=== PATIENT | female | born 2000 | race Caucasian/White ===

== ENCOUNTER 2024-02-16 11:20 | Outpatient (OUT) | payer OTHER, SELFPAY ==
--- NOTE | 2024-02-16 11:23 | US_ITS ---
[address] [address] Patient Name: ATTILA TESFAYE MRN: [id number] date: 2000 Sex: F Assigned Patient Location: US Current Patient Location: US Accession/Order Number: [id number] Exam Date: 02/16/2024 11:25 Report Date: 02/16/2024 11:57 At the request of: BLADIMIR PIERRE Procedure: US OB growth EXAMINATION: US OB growth HISTORY: Related Condition Third Trimester COMPARISON: No relevant comparison available. FINDINGS: Heart Rate: 155.17 bpm Amniotic Fluid Volume: 12.4 cm, largest fluid pocket 4.1 cm Number: 1 Position: Cephalic presentation, longitudinal lie BIOMETRY: BPD: 7.23 cm; 29 weeks 0 days; 12.90 % HC: 27.40 cm; 29 weeks 6 days; 14.80 % AC: 26.10 cm; 30 weeks 2 days; 52.40 % FL: 5.62 cm; 29 weeks 4 days; 23.20 % EFW: 1473.76 g; 33.30 %, 3 lbs. 4 oz. FL/AC: 21.54 FL/BPD: 77.71 HC/AC: 1.05 GESTATIONAL AGE: Age by EDC: 30 weeks 0 days JESÚS by EDC: 2024-04-26 Age by US: 29 weeks 5 days JESÚS by US: 2024-04-28 US/US OB growth IMPRESSION: Normal interval growth Electronically authenticated by: REA HERRERA Date: 02/16/2024 11:57
== END 2024-02-16 11:21 | disposition home or self-care (01) ==
LOC: US 11:21
PROVIDERS: Visit Provider Midwife
DX: O26.93 Pregnancy related conditions, unspecified, third trimester (principal); Z3A.30 30 weeks gestation of pregnancy
CPT/HCPCS: 76816

== ENCOUNTER 2024-04-28 13:14 | Outpatient (OUT) | payer BC, OTHER, SELFPAY ==
--- NOTE | 2024-04-28 | US_ITS ---
[place] [id number] Patient Name: ATTILA TESFAYE MRN: [id number] date: 2000 Sex: F Assigned Patient Location: US Current Patient Location: Accession/Order Number: [id number] Exam Date: 04/28/2024 15:39 Report Date: 04/28/2024 15:40 At the request of: BLADIMIR PIERRE APRN, CNM Procedure: US OB BPP w non-stress Biophysical profile. Reason for exam: Postterm . COMPARISON: None. TECHNIQUE: Transabdominal imaging of the gravid uterus was obtained. FINDINGS: Supply Coordinator reports a BPP of 6 out of 8 with 0 for breathing movements. SARAI is normal at 18.1 cm. heart rate 158 bpm. US/US OB BPP w non-stress IMPRESSION: BPP 6 out of 8. Correlation with NST is suggested. Impression dictated by: Quinn Santamaria Jr., D.O.04/28/2024 3:40 PM Dictation Location: [place] [address] Electronically authenticated by: [id number] Y Date: 04/28/2024 15:40
[2024-04-28 13:21] VITALS: BP 127/68; PULSE 86
== END 2024-04-28 14:29 | disposition home or self-care (01) ==
LOC: US 13:14 → FBC 13:19
PROVIDERS: Visit Provider Midwife
DX: O48.0 Post-term pregnancy (principal)
CPT/HCPCS: 76818

== ENCOUNTER 2024-04-29 09:00 | Outpatient (OUT) | payer BC, OTHER, SELFPAY ==
--- NOTE | 2024-04-29 | US_ITS ---
[facility] [place] [id number] Patient Name: ATTILA TESFAYE MRN: [id number] date: 2000 Sex: F Assigned Patient Location: [facility] Current Patient Location: [facility] Accession/Order Number: [id number] Exam Date: 04/29/2024 09:49 Report Date: 04/29/2024 09:51 At the request of: MONTY ARAGON MD Procedure: US OB BPP w non-stress BIOPHYSICAL PROFILE: CLINICAL INFORMATION: Repeat BPP, Patient is post term delivery dates COMPARISON: 04/28/2014 There is a single live intrauterine gestation in cephalic presentation. The reported gestational age is 40 weeks 3 days. The heart rate [id number] beats per minute. FINDINGS: TONE: 1 or more episodes of activity extension and flexion of extremity or opening and closing of the hand [Y] 2/2 GROSS BODY MOVEMENTS: 3 or more discrete body or limb movements [Y] 2/2 BREATHING MOVEMENTS: 1 or more episodes of breathing lasting at least 30 seconds [Y] 2/2 SARAI: A single deepest vertical pocket of amniotic fluid greater than 2 cm [Y] 2/2 SARAI: 16.0 cm. This is in normal range. Total score: 8/8 US/US OB BPP w non-stress IMPRESSION: NORMAL BIOPHYSICAL PROFILE Impression dictated by: Erin Fuller M.D.04/29/2024 9:51 AM Dictation Location: [place] [address] Electronically authenticated by: [id number] Y Date: 04/29/2024 09:51
[2024-04-29 09:07] VITALS: BP 128/67; PULSE 77
--- OUTSIDE RECORDS SUMMARY | 2024-04-29 09:12 | XMS_ITS | CCD ---
Author Organization [facility] Care Team Providers Care Nuclear Medical Technologist Name Role Phone Unavailable Primary Care Provider UnavailBLADIMIR Cherry Admitting Unavailable BLADIMIR ONEAL Attending Unavailable MISC, DR BARTON Primary Care Unavailable ANTHONY, DR MOROE Attending Unavailable ANTHONY, DR MOORE Consulting Unavailable ANTHONY, DR MOORE Admitting Unavailable Dina WILLIAMSON, [facility] Primary Care Provider [phone] BLADIMIR ONEAL Attending Unavailable FLORO, BLADIMIR L Attending Unavailable FLORO, BLADIMIR L Attending Unavailable FLORO, BLADIMIR L Attending Unavailable FLORO, BLADIMIR L Attending Unavailable FLORO, BLADIMIR L Referring Unavailable PINO HIGGINS Attending Unavailable FLORO, BLADIMIR L Attending Unavailable FLORO, BLADIMIR L Referring Unavailable FLORO, BLADIMIR L Attending Unavailable FLORO, BLADIMIR L Referring Unavailable FLORO, BLADIMIR L Attending Unavailable FLORO, BLADIMIR L Attending Unavailable FLORO, BLADIMIR L Referring Unavailable FLORO, BLADIMIR L Attending Unavailable FLORO, BLADIMIR L Attending Unavailable FLORO, BLADIMIR L Attending Unavailable Medications Current Medications Medication Drug Class(es) Dates Sig (Normalized) Sig (Original) acetaminophen 325 mg oral tablet (1 source) Start: 01-17-2020 acetaminophen (TYLENOL) tablet 650 mg benzocaine 200 mg/ml / menthol 5 mg/ml topical spray (1 source) Standardized Chemical Allergen Start: 01-17-2020 benzocaine-menthol (DERMOPLAST) 20-0.5 % spray docusate sodium 100 mg oral capsule (1 source) Start: 01-17-2020 docusate sodium (COLACE) capsule 100 mg ibuprofen 800 mg oral tablet (1 source) Nonsteroidal Anti-inflammatory Drug Start: 01-17-2020 ibuprofen (ADVIL;MOTRIN) tablet 800 mg lansinoh lanolin ointment (1 source) Start: 01-17-2020 lansinoh lanolin ointment ondansetron 4 mg disintegrating oral tablet (1 source) Serotonin-3 Receptor Antagonist Start: 01-17-2020 ondansetron (ZOFRAN-ODT) disintegrating tablet 8 mg DMCXII-A8-F7-B12-D3- FA PO (1 source) take 1 tablet by mouth once daily [id number]-B3-T0-B12-D3 -FA PO Take 1 tablet by mouth daily 0 Active Itdkkalw-Gdy-Lc-FA ( 1 + IRON PO) (20 sources) Wwvdmgey-Dtn-Ph-FA ( 1 + IRON PO) Take by mouth Active 3 ml sodium chloride 9 mg/ml injection (2 sources) Start: 01-17-2020 sodium chloride flush 0.9 % injection 10 mL witch alexis 500 mg/ml medicated pad (1 source) Start: 01-17-2020 witch alexis-glycerin (TUCKS) pad Completed/Discontinued Medications Medication Drug Class(es) Dates Sig (Normalized) Sig (Original) calcium chloride 0.0014 meq/ml / potassium chloride 0.004 meq/ml / sodium chloride 0.103 meq/ml / sodium lactate 0.028 meq/ml injectable solution (1 source) Start: 01-17-2020 End: 01-17-2020 lactated ringers infusion ferrous sulfate 325 mg oral tablet (1 source) End: 01-19-2020 take 1 tablet by mouth once daily at breakfast ferrous sulfate (IRON 325) 325 (65 Fe) MG tablet Take 325 mg by mouth daily (with breakfast) 0 01/19/2020 Discontinued (Stop Taking at Discharge) 200 ml ropivacaine hydrochloride 2 mg/ml injection (1 source) Amide Local Anesthetic Start: 01-17-2020 End: 01-17-2020 12 mL/hr, Epidural, at 12 mL/hr, ONCE, 01/17/20 at 1000, For 1 dose Problems Active Problems Problem Classification Problem Date Documented Da te Episodic/Chronic Other complications of (2 sources) Finding related to ; Translations: [ related conditions, unspecified, second trimester] 11-11-2023 Episodic Other conditions (2 sources) Kbmuw-lce-osytw at regardless of gestation period; Translations: [Other heavy for gestational age ] 04-18-2024 Episodic Other and delivery including normal (20 sources) Term ; Translations: [Normal ] Onset: 01-17-2020 01-17-2020 Episodic Other screening for suspected conditions (not mental disorders or infectious disease) (6 sources) Patient encounter status; Translations: [Encounter for screening for diabetes mellitus] 02-04-2024 Episodic Residual codes; unclassified (2 sources) Gestation period, 39 weeks; Translations: [39 weeks gestation of ] 04-21-2024 Episodic Substance-related disorders (14 sources) Marijuana user; Translations: [Cannabis use, unspecified, uncomplicated] 12-09-2023 Episodic Unclassified (2 sources) CONTACT W/AND (SUSP) EXPOS COVID-19; Translations: [CONTACT W/AND (SUSP) EXPOS COVID-19] Onset: 02-28-2021 Viral infection (1 source) COVID-19; Translations: [COVID-19] Onset: 02-28-2021 Past or Other Problems Problem Classification Problem Date Documented Da te Episodic/Chronic Unclassified (1 source) CONTACT W/AND (SUSP) EXPOS COVID-19; Translations: [CONTACT W/AND (SUSP) EXPOS COVID-19] Onset: 02-25-2021 Results Test Name Value Interpretation Reference Range Facility Urinalysis macro (dipstick) panel (U)on 04-25-2024 Glucose, UA Negative Negative - 1999(110) ++++ mg/dL [facility] Protein, UA Trace Negative - 1999(20) ++++ mg/dL [facility] US OB FOLLOW UP TRANSABDOMIN AL APPROACHon 04-18-2024 US OB FOLLOW UP TRANSABDOMINAL APPROACH EXAM: OB Ultrasound: REASON FOR EXAM: LGA. COMPARISON: 12/09/2023. TECHNIQUE: Grayscale and M-mode Doppler imaging is performed. FINDINGS: heart rate: 149 bpm SARAI: 12.2 cm (7.2 - 22.8) BPD: 9.4 cm HC: 33.3 cm AC: 33.7 cm FL: 7.1 cm GA for sonogram: 37.0 weeks (34.7 - 39.3) JESÚS: 04/26/2024 Weight Estimate: Weight: 3211 gm/7 lbs, 1 oz (2742 - 3680 gm) Hadlock Normal: 3409 gm (2830 - 3989 gm) Hadlock Wt%: 33% for 38.9 wks Age by LMP: 37 w 3 d JESÚS by LMP: 04/26/2024 Gestation: Single Position: Cephalic Placental Location: Anterior Placental Grade: 2 Heart Rate: 149 Somatic Movement: Y Cervical Length: 4.3 cm IMPRESSION: 1. Single live intrauterine gestation in cephalic position estimated at 37 weeks 4 days. This is concordant with the provided clinical dates. 2. The LMP imported into the ultrasound machine for this current study is 07/31/2023. The reference dates/LMP provided on several prior ultrasounds is 07/21/2023 (which was used in the current intraoperative software). This represents a 10-day discrepancy in clinical dates. Please correlate regarding these clinical discrepancies. *This report is generated using voice recognition reporting ([employer]). On occasion Errplan[employer]ribe erroneously drops words from the report or replaces the spoken word with similar sounding words. Please call with any questions/concerns regarding this report.* Dictated and transcribed 04/18/2024/oracio This report has been electronically signed and approved by the interpreting radiologist. Normal Not Available US OB 14+ WEEKS ANATOMY SCAN on 12-09-2023 US OB 14+ WEEKS ANATOMY SCAN EXAM: OB Ultrasound: REASON FOR EXAM: survey. TECHNIQUE: Grayscale and color Doppler imaging is performed. Measurements: heart rate: 145 bpm SARAI: 14.5 cm (9.3 - 21.2) BPD: 4.4 cm HC: 16.5 cm AC: 14.6 cm FL: 3.1 cm GA for sonogram: 19.5 wk (17.7 x 21.3) Cervix length: 4.0 cm JESÚS: 04/26/2024 Weight Estimate: Weight: 308 gm / 0 lbs, 10 oz (263 - 353 gm) Hadlock Normal: 342 gm (284 - 400 gm) Hadlock Wt%: 23% for 20.2 wks Clinical Summary: A single intrauterine is noted in transverse presentation with the head to the maternal right. Four chamber heart is observed with a heart rate of 145 bpm. size is borderline small at 23% for gestational age by weight. motion and organs seen: Normal intracranial anatomy is seen. body and limb movements are observed. spine, limbs, bladder, kidneys, and stomach are observed and within normal limits. Umbilical cord insertion and three vessel cord are identified and within normal limits. bowel, lungs, genitalia, four limbs are visualized and normal in appearance. Placenta is located anteriorly and fundal. Placenta is Grade 0/III Amniotic fluid volume is normal. Dictated and transcribed 12/10/2023/tm This report has been electronically signed and approved by the interpreting radiologist. Electronically Signed Johnny Short D.O. 2023-12-10 13:38:26 Normal Not Available US OB < 14 WEEKS EARLYon US OB < 14 WEEKS EARLY TITLE OF EXAM: OB Ultrasound: REASON FOR EXAM: Confirm dates. TECHNIQUE: Grayscale imaging with color Doppler is performed. Measurements: heart rate: 141 bpm Sac: 2.7 cm CRL: 1.1 cm GA for sonogram: 7.2 wk (06.6-07.8) Cervix Length: 3.8 cm JESÚS: 04/26/2024 CLINICAL SUMMARY: Early intrauterine is seen with positive cardiac activity. Yolk sac is identified and within normal limits. size is normal. growth: Consistent with normal growth. Limited study. Full anatomical survey not performed. Probable small left ovary corpus luteal cyst. Dictated and transcribed 09/18/23dpd This report has been electronically signed and approved by the interpreting radiologist. Electronically Signed Dimas Tim M.D. 2023-09-18 17:02:36 Normal Not Available [facility]16 SARS-CoV-2 (COVID-19) RNA JOHNATHAN+probe Ql (Unsp spec) Detected Critically abnormal NOT DETECTED [facility] Comment on above: Result Comment: This test is not yet approved or cleared by the [place] FDA. When there are no FDA-approved or cleared tests available, and other criteria are met, FDA can make tests available under an emergency access mechanism called an Emergency Use Authorization (EUA). The EUA for this test is supported by the [place] of Health and Human Service's (HHS's) declaration that circumstances exist to justify the emergency use of in vitro diagnostics for the detection and/or diagnosis of the virus that causes COVID-19. This EUA will remain in effect (meaning this test can be used) for the duration of the COVID-19 declaration justifying emergency of IVDs, unless it is terminated or revoked by FDA (after which the test may no longer be used). Performed By: #### C [facility] #### [facility] [address] [place] [address] Dr. Jim Patrick CBC auto differentialon 12-0 Basophils (Bld) [#/Vol] 0.04 10*3/uL [place], [place] Basophils/100 WBC (Bld) 0 % 0 - 2 % [place] Differential Type NOT REPORTED [place] Eosinophils (Bld) [#/Vol] 0.08 10*3/uL [place] Eosinophils/100 WBC (Bld) 1 % 1 - 4 % [place] Erythrocyte distribution width (RBC) [Ratio] 13.4 % 11.8 - 14.4 % [place] Hematocrit (Bld) [Volume fraction] 34.0 % Low 36.3 - 47.1 % [place] Hemoglobin (Bld) [Mass/Vol] 11.2 g/dL Low 11.9 - 15.1 g/dL [place] Immature granulocytes (Bld) [#/Vol] 1 % High 0 [place] Immature granulocytes (Bld) [#/Vol] 0.09 10*3/uL [place] Interpretation and review of laboratory results Abnormal [place] Lymphocytes (Bld) [#/Vol] 2.10 10*3/uL [place] Lymphocytes/100 WBC (Bld) 13 % Low 25 - 45 % [place] MCH (RBC) [Entitic mass] 28.0 pg 25.2 - 33.5 pg [place] MCHC (RBC) [Mass/Vol] 32.9 g/dL 28.4 - 34.8 g/dL [place] MCV (RBC) [Entitic vol] 85.0 fL 82.6 - 102.9 fL [place] Monocytes (Bld) [#/Vol] 0.69 10*3/uL [place] Monocytes/100 WBC (Bld) 4 % 2 - 8 % [place] Platelet mean volume (Bld) [Entitic vol] 11.0 fL 8.1 - 13.5 fL [place] Platelets (Bld) [#/Vol] 238 10*3/uL [place] Platelets (Bld) [#/Vol] NOT REPORTED [place] RBC (Bld) [#/Vol] 4.00 10*6/uL 3.95 - 5.1 1 m/uL [place] RBC morphology finding Nom (Bld) NOT REPORTED [place] Segmented neutrophils/100 WBC (Bld) 81 % High 34 - 64 % [place] Segs Absolute 12.64 High [place] WBC (Bld) [#/Vol] 0.0 10*3/uL 0.0 per 10 0 WBC [place] WBC (Bld) [#/Vol] 15.6 10*3/uL [place] WBC Morphology NOT REPORTED [place], [place] CBC with Diffon 01-17-2020 Abs. Basophil 0.04 k/uL Normal 0.00-0.20 [facility] Comment on above: Performed By: #### C DP #### [facility] [address] [place] [address] Physics Technician: Samuel Vazquez MD Abs.Imm.Granulocyte 0.09 k/uL Normal 0.00-0.30 [facility] Comment on above: Performed By: #### C DP #### [facility] [address] [place] [address] Physics Technician: Samuel Vazquez MD Abs.Neutrophil (Seg) 12.64 k/uL High 1.80-8.00 [facility] Comment on above: Performed By: #### C DP #### [facility] [address] [place] [address] Physics Technician: Samuel Vazquez MD Basophils/100 WBC (Bld) 0 % Normal 0-2 [facility] Comment on above: Performed By: #### C DP #### [facility] [address] [place], [facility] Physics Technician: Samuel Vazquez MD Eosinophils (Bld) [#/Vol] 0.08 10*3/uL Normal 0.00-0.44 [facility] Comment on above: Performed By: #### C DP #### [facility] [address] [place], [place] [address] Physics Technician: Samuel Vazquez MD Eosinophils/100 WBC (Bld) 1 % Normal 1-4 [facility] Comment on above: Performed By: #### C DP #### [address] [place], [facility] Physics Technician: Samuel Vazquez MD Erythrocyte distribution width (RBC) [Ratio] 13.4 % Normal 11.8-14.4 [facility] Comment on above: Performed By: #### C DP #### [address] [place], [facility] Physics Technician: Samuel Vazquez MD Hematocrit (Bld) [Volume fraction] 34.0 % Low 36.3-47.1 [facility] Comment on above: Performed By: #### C DP #### [address] [place], [place] [address] Physics Technician: Samuel Vazquez MD Hemoglobin (Bld) [Mass/Vol] 11.2 g/dL Low 11.9-15.1 [facility] Comment on above: Performed By: #### C DP #### [address] [place] [id number] Physics Technician: Samuel Vazquez MD Immature granulocytes (Bld) [#/Vol] 1 % High 0 [facility] Comment on above: Performed By: #### C DP #### [address] [place] [id number] Physics Technician: Samuel Vazquez MD Lymphocytes (Bld) [#/Vol] 2.10 10*3/uL Normal 1.20-5.20 [facility] Comment on above: Performed By: #### C DP #### [facility] [address] [place] [id number] Physics Technician: Samuel Vazquez MD Lymphocytes/100 WBC (Bld) 13 % Low 25-45 [facility] Comment on above: Performed By: #### C DP #### [facility] [address] [place] [id number] Physics Technician: Samuel Vazquez MD MCH (RBC) [Entitic mass] 28.0 pg Normal 25.2-33.5 [facility] Comment on above: Performed By: #### C DP #### [address] [place] [facility] Physics Technician: Samuel Vazquez MD MCHC (RBC) [Mass/Vol] 32.9 g/dL Normal 28.4-34.8 [facility] Comment on above: Performed By: #### C DP #### [address] [place], [facility] Physics Technician: Samuel Vazquez MD MCV (RBC) [Entitic vol] 85.0 fL Normal 82.6-102.9 [facility] Comment on above: Performed By: #### C DP #### [address] [place], [facility] Physics Technician: Samuel Vazquez MD Monocytes (Bld) [#/Vol] 0.69 10*3/uL Normal 0.10-1.40 [facility] Comment on above: Performed By: #### C DP #### [address] [place], [place] [id number] Physics Technician: Samuel Vazquez MD Monocytes/100 WBC (Bld) 4 % Normal 2-8 [facility] Comment on above: Performed By: #### C DP #### [facility] [address] [place] [address] Physics Technician: Samuel Vazquez MD Neutrophil (Seg) 81 % High 34-64 [facility] Comment on above: Performed By: #### C DP #### [facility] [address] [place] [facility] Physics Technician: Samuel Vazquez MD NRBC Automated 0.0 per 100 WBC Normal 0.0 [facility] Comment on above: Performed By: #### C DP #### [facility] [address] [place] [facility] Physics Technician: Samuel Vazquez MD Platelet mean volume (Bld) [Entitic vol] 11.0 fL Normal 8.1-13.5 [facility] Comment on above: Performed By: #### C DP #### [facility] [address] [place] [id number] Physics Technician: Samuel Vazquez MD Platelets (Bld) [#/Vol] 238 10*3/uL Normal 138-453 [facility] Comment on above: Performed By: #### C DP #### [facility] [address] [place] [address] Physics Technician: Samuel Vazquez MD RBC (Bld) [#/Vol] 4.00 10*6/uL Normal 3.95-5.11 [facility] Comment on above: Performed By: #### C DP #### [facility] [address] [place] [id number] Physics Technician: Samuel Vazquez MD WBC (Bld) [#/Vol] 15.6 10*3/uL High 4.5-13.5 [facility] Comment on above: Performed By: #### C DP #### [facility] [address] [place] [address] Physics Technician: Samuel Vazquez MD Auto Diff Performed NOT REPORTED Normal [facility] Comment on above: Performed By: #### C DP #### [facility] [address] [place] [address] Physics Technician: Samuel Vazquez MD Platelets (Bld) [#/Vol] NOT REPORTED Normal [facility] Comment on above: Performed By: #### C DP #### [facility] [address] [place] [id number] Physics Technician: Samuel Vazquez MD RBC morphology finding Nom (Bld) NOT REPORTED Normal [facility] Comment on above: Performed By: #### C DP #### [facility] [address] [place] [id number] Physics Technician: Samuel Vazquez MD WBC Morphology NOT REPORTED Normal [facility] Comment on above: Performed By: #### C DP #### [facility] [address] [place] [address] Physics Technician: Samuel Vazquez MD DRUG SCREEN MULTI URINEon Amphetamine Screen, Ur Negative NEGATIVE [facility] [place] [place] Barbiturate Screen, Ur Negative NEGATIVE [facility] [place] Benzodiazepine Screen, Urine Negative NEGATIVE [facility] [place] Buprenorphine Urine Negative NEGATIVE [facility] [place] Cannabinoid Scrn, Ur Negative NEGATIVE [facility] [place] Cocaine Metabolite, Urine Negative NEGATIVE [facility] [place] MDMA, Urine NOT REPORTED NEGATIVE [facility] [place] Methadone Screen, Urine Negative NEGATIVE [facility] [place] Methamphetamine, Urine Negative NEGATIVE [facility] [place] Opiates, Urine Negative NEGATIVE [facility] [place] Oxy[place]one Screen, Ur Negative NEGATIVE [facility] [place] Phencyclidine, Urine Negative NEGATIVE [facility] [place] Propoxyphene, Urine Negative NEGATIVE [facility] [place] Test Information NOT REPORTED [facility] [place] Tricyclic Antidepressants, Urine Negative NEGATIVE [facility] [place] Comment on above: Drug screen results are to be used for medical purposes only. All positive results are unconfirmed. Testing for employment or legal uses should be sent to a reference laboratory for confirmation. Drug Scr, Abuse, Uron 2019 Amphetamine(s),Ur Negative Normal [facility]G [facility] Comment on above: Performed By: #### D AU #### [facility] [address] [place] [address] Physics Technician: Samuel Vazquez MD Barbiturate(s),Ur Negative Normal [facility] Comment on above: Performed By: #### D AU #### [facility] [address] [place], [place] [id number] Physics Technician: Samuel Vazquez MD Base excess Calc (Bld) [Moles/Vol] Negative Normal [facility] Comment on above: Performed By: #### D AU #### [facility] [address] [place], [place] [id number] Physics Technician: Samuel Vazquez MD Benzodiazepine(s) Negative Normal [facility]G [facility] Comment on above: Performed By: #### D AU #### [facility] [address] [place], [place] [id number] Physics Technician: Samuel Vazquez MD Buprenorphrine, Ur Negative Normal [facility] Comment on above: Performed By: #### D AU #### [facility] [address] [place], [place] [id number] Physics Technician: Samuel Vazquez MD Cannabinoid(s),Ur Negative Normal [facility] Comment on above: Performed By: #### D AU #### [facility] [address] [place], [place] [id number] Physics Technician: Samuel Vazquez MD Methadone Ql (U) Negative Normal [facility] Comment on above: Performed By: #### D AU #### [facility] [address] [place], [place] 115[address]483 Physics Technician: Samuel Vazquez MD Methamphetamine, Ur Negative Normal NEG [facility] Comment on above: Performed By: #### D AU #### [facility] [address] [place], [place] [id number] Physics Technician: Samuel Vazquez MD Opiate(s), Ur Negative Normal NEG [facility] Comment on above: Performed By: #### D AU #### [facility] [address] [place], [place] [id number] Physics Technician: Samuel Vazquez MD Oxycodone, Urine Negative Normal [facility] Comment on above: Performed By: #### D AU #### [facility] [address] [place], [place] [id number] Physics Technician: Samuel Vazquez MD Phencyclidine, Ur Negative Normal NEG [facility] Comment on above: Performed By: #### D AU #### [facility] [address] [place], [place] [id number] Physics Technician: Samuel Vazquez MD Propoxyphene,Urine Negative Normal NEG [facility] Comment on above: Performed By: #### D AU #### [facility] [address] [place] [address] Dr[place], [place] [id number] Physics Technician: Samuel Vazquez MD Tricyclic antidepressants Screen Ql (U) Negative [facility] Comment on above: Result Comment: Drug screen results are to be used for medical purposes only. All positive results are unconfirmed. Testing for employment or legal uses should be sent to a reference laboratory for confirmation. Performed By: #### D AU #### [facility] [address] [place], [place] [id number] Physics Technician: Samuel Vazquez MD Interpretive Info NOT REPORTED Normal [facility] Comment on above: Performed By: #### D AU #### [facility] [address] [place], [place] [id number] Physics Technician: Samuel Vazquez MD MDMA, Urine NOT REPORTED Normal NEG [facility] Comment on above: Performed By: #### D AU #### [facility] [address] [place] [address] Physics Technician: Samuel Vazquez MD GBS, External Resulton 12-21 GBS, External Result Negative [facility] [place] Verified with eli moct[place] rn [facility] [place] ABO, External Resulton 06-21 ABO, External Result O [facility] [place] C. Trachomatis, External Res ulton 06-22-2019 C. Trachomatis, External Result Negative [facility] [place] HIV, External Resulton 06-21 HIV, External Result Negative [facility] [place] Hepatitis B, External Result on 06-22-2019 Hep B, External Result Negative [place] N. Gonorrhoeae, External Res ulton 06-22-2019 N. Gonorrhoeae, External Result Negative [facility] [place] Otheron 06-22-2019 Verified with eli moctezuma rn [place] RPR, External Labon 06-22-19 20 RPR, External Result nonreactive [place], [place] Rh Factor, External Resulton 06-22-2019 Rh Factor, External Result Positive [place] Rubella Titer, External Resu lton 06-22-2019 Rubella Titer, External Result immune [place] Vital Signs Date Time Vital Sign Value Performing Clinician Facility 04-25-2024 15:18-0400 Body mass index (BMI) [Ratio] 30.46 kg/m2 Pino Higgins MD Work Phone: [facility] 04-25-2024 15:18-0400 Body weight 66.68 kg Pino Higgins MD Work Phone: [facility] 04-25-2024 15:18-0400 Diastolic blood pressure 70 mm[Hg] Pino Higgins MD Work Phone: [facility] 04-25-2024 15:18-0400 Systolic blood pressure 120 mm[Hg] Pino Higgins MD Work Phone: [facility] 04-18-2024 13:30-0500 Body mass index (BMI) [Ratio] 31.08 kg/m2 Bladimir Floro CNM Work Phone: [facility] 04-18-2024 13:30-0500 Body weight 68.04 kg Bladimir Floro CNM Work Phone: [facility] 04-18-2024 13:30-0500 Diastolic blood pressure 80 mm[Hg] Bladimir Floro CNM Work Phone: [facility] 04-18-2024 13:30-0500 Systolic blood pressure 120 mm[Hg] Bladimir Floro CNM Work Phone: [facility] 04-06-2024 16:37-0500 Body mass index (BMI) [Ratio] 30.05 kg/m2 Bladimir Floro CNM Work Phone: [facility] 04-06-2024 16:37-0500 Body weight 65.77 kg Bladimir Floro CNM Work Phone: [facility] 04-06-2024 16:37-0500 Diastolic blood pressure 60 mm[Hg] Bladimir Floro CNM Work Phone: [facility] 04-06-2024 16:37-0500 Systolic blood pressure 120 mm[Hg] Bladimir Floro CNM Work Phone: [facility] 03-30-2024 08:43-0500 Body mass index (BMI) [Ratio] 29.63 kg/m2 Bladimir Floro CNM Work Phone: [facility] 03-30-2024 08:43-0500 Body weight 64.86 kg Bladimir Floro CNM Work Phone: [facility] 03-30-2024 08:43-0500 Diastolic blood pressure 60 mm[Hg] Bladimir Floro CNM Work Phone: [facility] 03-30-2024 08:43-0500 Systolic blood pressure 100 mm[Hg] Bladimir Floro CNM Work Phone: [facility] 03-24-2024 09:36-0500 Body mass index (BMI) [Ratio] 29.22 kg/m2 Bladimir Floro CNM Work Phone: [facility] 03-24-2024 09:36-0500 Body weight 63.96 kg Bladimir Floro CNM Work Phone: [facility] 03-24-2024 09:36-0500 Diastolic blood pressure 70 mm[Hg] Bladimir Floro CNM Work Phone: [facility] 03-24-2024 09:36-0500 Systolic blood pressure 114 mm[Hg] Bladimir Floro CNM Work Phone: [facility] 03-09-2024 09:32-0500 Body mass index (BMI) [Ratio] 29.01 kg/m2 Bladimir Floro CNM Work Phone: [facility] 03-09-2024 09:32-0500 Body weight 63.5 kg Bladimir Floro CNM Work Phone: [facility] 03-09-2024 09:32-0500 Diastolic blood pressure 60 mm[Hg] Bladimir Floro CNM Work Phone: [facility] 03-09-2024 09:32-0500 Systolic blood pressure 110 mm[Hg] Bladimir Floro CNM Work Phone: [facility] 02-25-2024 11:34-0500 Body mass index (BMI) [Ratio] 28.18 kg/m2 Bladimir Floro CNM Work Phone: [facility] 02-25-2024 11:34-0500 Body weight 61.69 kg Bladimir Floro CNM Work Phone: [facility] 02-25-2024 11:34-0500 Diastolic blood pressure 60 mm[Hg] Bladimir Floro CNM Work Phone: [facility] 02-25-2024 11:34-0500 Systolic blood pressure 110 mm[Hg] Bladimir Floro CNM Work Phone: [facility] 02-04-2024 09:03-0500 Body mass index (BMI) [Ratio] 26.52 kg/m2 Bladimir Floro CNM Work Phone: [facility] 02-04-2024 09:03-0500 Body weight 58.06 kg Bladimir Floro CNM Work Phone: [facility] 02-04-2024 09:03-0500 Diastolic blood pressure 78 mm[Hg] Bladimir Floro CNM Work Phone: [facility] 02-04-2024 09:03-0500 Systolic blood pressure 120 mm[Hg] Bladimir Floro CNM Work Phone: [facility] 01-07-2024 09:53-0500 Body mass index (BMI) [Ratio] 25.28 kg/m2 Bladimir Floro CNM Work Phone: [facility] 01-07-2024 09:53-0500 Body weight 55.34 kg Bladimir Floro CNM Work Phone: [facility] 01-07-2024 09:53-0500 Diastolic blood pressure 60 mm[Hg] Bladimir Floro CNM Work Phone: [facility] 01-07-2024 09:53-0500 Systolic blood pressure 100 mm[Hg] Bladimir Floro CNM Work Phone: [facility] 12-09-2023 10:40-0400 Body mass index (BMI) [Ratio] 24.66 kg/m2 Bladimir Floro CNM Work Phone: [facility] 12-09-2023 10:40-0400 Body weight 53.98 kg Bladimir Floro CNM Work Phone: [facility] 12-09-2023 10:40-0400 Diastolic blood pressure 60 mm[Hg] Bladimir Floro CNM Work Phone: [facility] 12-09-2023 10:40-0400 Systolic blood pressure 100 mm[Hg] Bladimir Floro CNM Work Phone: [facility] 11-11-2023 10:37-0400 Body mass index (BMI) [Ratio] 24.45 kg/m2 Bladimir Laurelo CNM Work Phone: [facility] 11-11-2023 10:37-0400 Body weight 53.52 kg Bladimir Laurelo CNM Work Phone: [facility] 11-11-2023 10:37-0400 Diastolic blood pressure 50 mm[Hg] Bladimir Laurelo CNM Work Phone: [facility] 11-11-2023 10:37-0400 Systolic blood pressure 90 mm[Hg] Bladimir Laurelo CNM Work Phone: [facility] 10-14-2023 10:09-0400 Body mass index (BMI) [Ratio] 23 kg/m2 Bladimir Laurelo CNM Work Phone: [facility] 10-14-2023 10:09-0400 Body weight 50.35 kg Bladimir Lucaso CNM Work Phone: [facility] 10-14-2023 10:09-0400 Diastolic blood pressure 70 mm[Hg] Bladimir Laurelo CNM Work Phone: [facility] 10-14-2023 10:09-0400 Systolic blood pressure 110 mm[Hg] Bladimir Laurelo CNM Work Phone: [facility] 09-17-2023 10:04-0400 Body mass index (BMI) [Ratio] 23.21 kg/m2 Bladimir Laurelo CNM Work Phone: [facility] 09-17-2023 10:04-0400 Body weight 50.8 kg Bladimir Laurelo CNM Work Phone: [facility] 01-19-2020 08:10-0500 Body Temperature 97.81 [degF] [facility] [place] [place] 01-19-2020 08:10-0500 BP Diastolic 72 mm[Hg] [facility] [place] [facility] [place] 01-19-2020 08:10-0500 BP Systolic 122 mm[Hg] [facility] [place] 01-[facility]-2020 08:10-0500 Pulse (Heart Rate) 72 /min [facility]adimir [facility] 01-19-2020 08:10-0500 [facility] Rate 16 /[facility] [place] 01-17-2020 14:39-0500 Pulse Oximetry 99 % [facility] [place] 01-17-2020 07:54-0500 BMI (Body Mass Index) 30.9 kg/m2 [facility] [place] 01-17-2020 07:54-0500 [facility]77 [facility] [place] 01-17-2020 07:54-0500 [place] 144.8 [place] Encounters Encounter Date Encounter Type Care Provider Facility Start: 04-25-2024 End: 04-25-2024 ambulatory PINO HIGGINS Not Available Start: 04-25-2024 End: 04-25-2024 Office outpatient visit 25 minutes Pino Higgins MD Work Phone: [facility] Comment on above: Supervision of vesna wade intrauterine in multigravida, third trimester (Primary Dx); 39 weeks gestation of Start: 04-25-2024 End: 04-25-2024 Bamboo reddy Higgins MD Work Phone: [facility] Start: 04-25-2024 End: 04-25-2024 Bamboo flowsrenny Higgins MD Work Phone: [facility] Start: 04-18-2024 End: 04-18-2024 Bamboo flowsheet Bladimir Oneal CN Work Phone: [facility] Start: 04-18-2024 End: 04-18-2024 Bamboo flowsheet Bladimir Lucaso CNM Work Phone: [facility] Start: 04-18-2024 End: 04-18-2024 Subsequent care visit Bladimir L Floro CNM Work Phone: [facility] Comment on above: Encounter for superv ision of other normal , third trimester (Primary Dx); Large for dates; Marijuana use Start: 04-18-2024 End: 04-18-2024 ambulatory BLADIMIR L FLORO Not Available Start: 04-06-2024 End: 04-06-2024 ambulatory BLADIMIR L FLORO Not Available Start: 04-06-2024 End: 04-06-2024 Subsequent care visit Bladimir L Floro CNM Work Phone: [facility] Comment on above: Encounter for superv ision of other normal , third trimester (Primary Dx); Marijuana use Start: 04-06-2024 End: 04-06-2024 Bamboo flowsheet Bladimir L Floro CNM Work Phone: [facility] Start: 04-06-2024 End: 04-06-2024 Bamboo flowsheet Bladimir L Floro CNM Work Phone: [facility] Start: 03-30-2024 End: 03-30-2024 Bamboo flowsheet Bladimir L Floro CNM Work Phone: [facility] Start: 03-30-2024 End: 03-30-2024 Bamboo flowsheet Bladimir L Floro CNM Work Phone: [facility] Start: 03-30-2024 End: 03-30-2024 ambulatory BLADIMIR L FLORO Not Available Start: 03-30-2024 End: 03-30-2024 Subsequent care visit Bladimir L Floro CNM Work Phone: [facility] Comment on above: Encounter for superv ision of other normal , third trimester (Primary Dx); screening for streptococcus B Start: 03-24-2024 End: 03-24-2024 Bamboo flowsheet Bladimir L Floro CNM Work Phone: [facility] Start: 03-24-2024 End: 03-24-2024 Bamboo flowsheet Bladimir L Floro CNM Work Phone: [facility] Start: 03-24-2024 End: 03-24-2024 ambulatory BLADIMIR L FLORO Not Available Start: 03-24-2024 End: 03-24-2024 Subsequent care visit Bladimir L Floro CNM Work Phone: [facility] Comment on above: Encounter for superv ision of other normal , third trimester (Primary Dx); Marijuana use Start: 03-09-2024 End: 03-09-2024 Bamboo flowsheet Bladimir L Floro CNM Work Phone: [facility] Start: 03-09-2024 End: 03-09-2024 Bamboo flowsheet Bladimir L Floro CNM Work Phone: [facility] Start: 03-09-2024 End: 03-09-2024 ambulatory BLADIMIR L FLORO Not Available Start: 03-09-2024 End: 03-09-2024 Subsequent care visit Bladimir L Floro CNM Work Phone: [facility] Comment on above: Encounter for superv ision of other normal , third trimester (Primary Dx); Marijuana use Start: 02-25-2024 End: 02-25-2024 Bamboo flowsheet Bladimir L Floro CNM Work Phone: [facility] Start: 02-25-2024 End: 02-25-2024 Bamboo flowsheet Bladimir L Floro CNM Work Phone: [facility] Start: 02-25-2024 End: 02-25-2024 Subsequent care visit Bladimir L Floro CNM Work Phone: [facility] Comment on above: Encounter for superv ision of other normal , third trimester (Primary Dx) Start: 02-25-2024 End: 02-25-2024 ambulatory BLADIMIR L FLORO Not Available Start: 02-04-2024 End: 02-04-2024 Bamboo flowsheet Bladimir L Floro CNM Work Phone: [facility] Start: 02-04-2024 End: 02-04-2024 Bamboo flowsheet Bladimir L Floro CNM Work Phone: [facility] Start: 02-04-2024 End: 02-04-2024 Office outpatient visit 15 minutes Bladimir L Floro CNM Work Phone: [facility] Comment on above: Encounter for superv ision of other normal , second trimester (Primary Dx); Screening for diabetes mellitus; Screening for iron deficiency anemia Start: 02-04-2024 End: 02-04-2024 ambulatory BLADIMIR L FLORO Not Available Start: 01-07-2024 End: 01-07-2024 Bamboo flowsheet Bladimir L Floro CNM Work Phone: [facility] Start: 01-07-2024 End: 01-07-2024 Bamboo flowsheet Bladimir L Floro CNM Work Phone: [facility] Start: 01-07-2024 End: 01-07-2024 ambulatory BLADIMIR L FLORO Not Available Start: 01-07-2024 End: 01-07-2024 Office outpatient visit 15 minutes Bladimir L Floro CNM Work Phone: [facility] Comment on above: Encounter for superv ision of other normal , second trimester (Primary Dx); Marijuana use Start: 12-09-2023 End: 12-09-2023 Bamboo flowsheet Bladimir L Floro CNM Work Phone: [facility] Start: 12-09-2023 End: 12-09-2023 Bamboo flowsheet Bladimir L Floro CNM Work Phone: [facility] Start: 12-09-2023 End: 12-09-2023 Office outpatient visit 15 minutes Bladimir L Floro CNM Work Phone: [facility] Comment on above: Encounter for superv ision of other normal , second trimester (Primary Dx); Marijuana use Start: 12-09-2023 End: 12-09-2023 ambulatory BLADIMIR L FLORO Not Available Start: 11-11-2023 End: 11-11-2023 Bamboo flowsheet Bladimir L Floro CNM Work Phone: [facility] Start: 11-11-2023 End: 11-11-2023 Bamboo flowsheet Bladimir L Floro CNM Work Phone: [facility] Start: 11-11-2023 End: 11-11-2023 Subsequent care visit Bladimir L Floro CNM Work Phone: [facility] Comment on above: Encounter for superv ision of other normal , second trimester (Primary Dx); related condition in second trimester Start: 11-11-2023 End: 11-11-2023 ambulatory BLADIMIR L FLORO Not Available Start: 10-14-2023 End: 10-14-2023 Bamboo flowsheet Bladimir L Floro CNM Work Phone: [facility] Start: 10-14-2023 End: 10-14-2023 Bamboo flowsheet Bladimir L Floro CNM Work Phone: [facility] Start: 10-14-2023 End: 10-14-2023 Subsequent care visit Bladimir L Floro CNM Work Phone: [facility] Comment on above: Encounter for superv ision of other normal , first trimester (Primary Dx); examination or test, positive result; Marijuana use Start: 10-14-2023 End: 10-14-2023 ambulatory BLADIMIR L FLORO Not Available Start: 09-17-2023 End: 09-17-2023 ambulatory BLADIMIR L FLORO Not Available Start: 09-17-2023 End: 09-17-2023 Initial care visit Bladimir L Floro CNM Work Phone: [facility] Comment on above: examinatio n or test, positive result (Primary Dx) Start: 02-25-2021 End: 02-26-[address] DOCTOR VALENTINO Facility: Start: 01-17-2020 End: 01-19-2020 Evaluation and management of inpatient BLADIMIR ONEAL [facility] Start: 01-17-2020 End: 01-19-2020 Evaluation and management of inpatient Bladimir Oneal Work Phone: [facility] Procedures Date Procedure Procedure Detail Performing Clinician Start: 04-25-2024 Urnls dip stick/tabl et rgnt non-auto w/o micrscp Pino Higgins MD Work Phone: Start: 01-19-2020 DISCHARGE PATIENT MACKENZIE ONEAL Start: 01-17-2020 REASON FOR NO CHEMIC AL VTE PROPHYLAXIS BLADIMIR ONEAL Start: 01-17-2020 SALINE LOCK IV BLADIMIR ONEAL Start: 01-17-2020 STRAIGHT CATH BLADIMIR Spencer LORO Start: 01-17-2020 AMBULATE PATIENT TRINIDAD ONEAL Start: 01-17-2020 ASSESS BLADIMIR FL ABDELRAHMAN Start: 01-17-2020 DIET GENERAL BLADIMIR FL ABDELRAHMAN Start: 01-17-2020 FULL CODE BLADIMIR FL ABDELRAHMAN Start: 01-17-2020 ICE TO AFFECTED AREA KEN ONEAL Start: 01-17-2020 NOTIFY PHYSICIAN (SPECIFY) BLADIMIR ONEAL Start: 01-17-2020 VITAL SIGNS BLADIMIR FL ABDELRAHMAN Start: 01-17-2020 TRANSFER PATIENT TRINIDAD ONEAL Start: 01-17-2020 PATIENT STATUS (DIRECT) BLADIMIR ONEAL Start: 01-17-2020 REASON FOR NO CHEMIC AL VTE PROPHYLAXIS BLADIMIR LUCASO Start: 01-17-2020 Blood count complete auto&auto difrntl wbc BLADIMIR LUCASO Start: 01-17-2020 Drug screen class list a BLADIMIR LUCASO Start: 01-17-2020 Blood count complete auto&auto difrntl wbc Bladimir Lucaso Work Phone: Start: 01-17-2020 Drug screen class list a Bladimir Oneal Work Phone: Start: 12-22-2019 GBS, EXTERNAL RESULT Hi storical Provider Start: 12-22-2019 GBS, EXTERNAL RESULT VA LERIE FLORO Start: 06-22-2019 ABO, EXTERNAL RESULT Hi storical Provider Start: 06-22-2019 ABO, EXTERNAL RESULT VA LERIE FLORO Start: 06-22-2019 C. TRACHOMATIS, EXTE RNAL RESULT Historical Provider Start: 06-22-2019 C. TRACHOMATIS, EXTE RNAL RESULT BLADIMIR FLORO Start: 06-22-2019 HEPATITIS B, EXTERNA L RESULT Historical Provider Start: 06-22-2019 HEPATITIS B, EXTERNA L RESULT BLADIMIR FLORO Start: 06-22-2019 HIV, EXTERNAL RESULT Hi storical Provider Start: 06-22-2019 HIV, EXTERNAL RESULT VA LERIE FLORO Start: 06-22-2019 N. GONORRHOEAE, EXTE RNAL RESULT Historical Provider Start: 06-22-2019 N. GONORRHOEAE, EXTE RNAL RESULT BLADIMIR FLORO Start: 06-22-2019 RH FACTOR, EXTERNAL RESULT Historical Provider Start: 06-22-2019 RH FACTOR, EXTERNAL RESULT BLADIMIR FLORO Start: 06-22-2019 RPR, EXTERNAL RESULT Hi storical Provider Start: 06-22-2019 RPR, EXTERNAL RESULT VA LERIE FLORO Start: 06-22-2019 RUBELLA TITER, EXTER NAL RESULT Historical Provider Start: 06-22-2019 RUBELLA TITER, EXTER NAL RESULT BLADIMIR FLORO Plan of Treatment Date Care Activity Detail Author Start: 04-18-2024 End: 04-18-2024 Professional / ancillary services management 04/18/2024 2:30 PM EST Ancillary Procedure [facility] [address] [place] [address] Large for dates [facility] Comment on above: Large for dates Start: 04-18-2024 End: 04-18-2025 US for US OB follow up transabdominal approach Imaging Routine Large for dates Expected: 04/18/2024, Expires: 04/18/2025 [facility] Work Phone: Comment on above: Expected: 04/18/2024 , Expires: 04/18/2025 Start: 04-18-2024 End: 04-18-2024 Patient encounter procedure [facility] Comment on above: Arrived Start: 04-13-2024 End: 04-13-2024 Patient encounter procedure 04/13/2024 8:30 AM EST Routine [facility] [address] [place] [phone] Bladimir Oneal, CNM [address] [facility] [place] [address] [facility] Start: 04-06-2024 End: 04-06-2024 Patient encounter procedure 04/06/2024 8:30 AM EST Routine [facility] [address] [place] [phone] Bladimir Oneal, CNM [address] [facility] [place] [address] [facility] Start: 03-30-2024 End: 03-30-2025 STREPTOCCOUS, GROUP B CULTURE STREPTOCCOUS, GROUP B CULTURE Lab Routine screening for streptococcus B Expected: 03/30/2024 (Approximate), Expires: 03/30/2025 [facility] Work Phone: Comment on above: Expected: 03/30/2024 (Approximate), Expires: 03/30/2025 Start: 03-30-2024 End: 03-30-2024 Patient encounter procedure 03/30/2024 8:30 AM EST Routine [facility] [address] [place] [phone] Bladimir Oneal, CNM [address] [facility] [place] [address] [facility] Start: 03-24-2024 End: 03-24-2024 Patient encounter procedure 03/24/2024 9:30 AM EST Routine [facility] [address] [place] [phone] Bladimir Oneal, CNM [address] [facility] [place] [address] [facility] Start: 03-09-2024 End: 03-09-2024 Patient encounter procedure 03/09/2024 9:30 AM EST Routine [facility] [address] [place] [phone] Bladimir Oneal, CNM [address] [facility] [place] [address] [facility] Start: 02-25-2024 End: 02-25-2024 Patient encounter procedure 02/25/2024 11:30 AM EST Routine [facility] [address] [place] [phone] Bladimir Oneal, CNM [address] [facility] [place] [address] Arrived [facility] Comment on above: Arrived Start: 02-04-2024 End: 02-03-2025 CBC panel - Blood by Automated count CBC Lab Routine Screening for iron deficiency anemia Expected: 02/04/2024 (Approximate), Expires: 02/03/2025 [facility] Comment on above: Expected: 02/04/2024 (Approximate), Expires: 02/03/2025 Start: 02-04-2024 End: 02-03-2025 GLUCOSE, GESTATIONAL SCREEN (50G)-135 CUTOFF GLUCOSE, GESTATIONAL SCREEN (50G)-135 CUTOFF Lab Routine Screening for diabetes mellitus Expected: 02/04/2024 (Approximate), Expires: 02/03/2025 [facility] Work Phone: Comment on above: Expected: 02/04/2024 (Approximate), Expires: 02/03/2025 Start: 02-04-2024 End: 02-04-2024 Patient encounter procedure [facility] Comment on above: Arrived Start: 01-07-2024 End: 01-07-2024 Patient encounter procedure 01/07/2024 9:30 AM EST Routine [facility] [address] [place] [phone] Bladimir Oneal, CNM [address] [place] [address] [facility] Start: 12-09-2023 End: 12-09-2023 Patient encounter procedure [facility] Comment on above: Arrived Start: 12-09-2023 End: 12-09-2023 Professional / ancillary services management 12/09/2023 9:45 AM EDT Ancillary Procedure [facility] [address] [place] [phone] [facility] Start: 11-11-2023 End: 11-10-2024 US for US OB 14+ weeks anatomy scan Imaging Routine related condition in second trimester Expected: 11/11/2023, Expires: 11/10/2024 [facility] Work Phone: Comment on above: Expected: 11/11/2023 , Expires: 11/10/2024 Start: 11-11-2023 End: 11-11-2023 Patient encounter procedure [facility] Comment on above: Arrived Start: 10-18-2023 Influenza vaccination Influenza Vacc ine (#1) [facility] Start: 10-14-2023 End: 10-14-2023 Patient encounter procedure [facility] Comment on above: examinatio n or test, positive result Start: 09-17-2023 End: 09-16-2024 Bacteria identified in Urine by Culture Urine culture Microbiology Routine examination or test, positive result Expected: 09/17/2023 (Approximate), Expires: 09/16/2024 [facility] Comment on above: Expected: 09/17/2023 (Approximate), Expires: 09/16/2024 Start: 09-17-2023 End: 09-16-2024 DRUG TOX MONITORIGN 6 W/ CONF,URINE DRUG TOX MONITORIGN 6 W/ CONF,URINE Lab Routine examination or test, positive result Expected: 09/17/2023 (Approximate), Expires: 09/16/2024 [facility] Comment on above: Expected: 09/17/2023 (Approximate), Expires: 09/16/2024 Start: 09-17-2023 End: 09-16-2024 Neisseria gonorrhoeae DNA [Presence] in Cervical mucus by JOHNATHAN with probe detection C. trachomatis / N. gonorrhoeae, DNA probe Lab Routine examination or test, positive result Expected: 09/17/2023 (Approximate), Expires: 09/16/2024 [facility] Comment on above: Expected: 09/17/2023 (Approximate), Expires: 09/16/2024 Start: 09-17-2023 End: 09-16-2024 TSH W/REFLEX TO FT4 TSH W/REFLEX TO FT4 Lab Routine examination or test, positive result Expected: 09/17/2023 (Approximate), Expires: 09/16/2024 [facility] Comment on above: Expected: 09/17/2023 (Approximate), Expires: 09/16/2024 Start: 09-17-2023 End: 09-16-2024 URINALYSIS MICROSCOPIC URINALYSIS MICROSCOPIC Lab Routine examination or test, positive result Expected: 09/17/2023 (Approximate), Expires: 09/16/2024 [facility] Comment on above: Expected: 09/17/2023 (Approximate), Expires: 09/16/2024 Start: 10-18-2019 Influenza vaccination Flu vaccine (# 1) [place], [place] Start: 02-17-2019 DTaP/Tdap/Td vaccine (1 - Tdap) DTaP/Tdap/Td vaccine (1 - Tdap) [place], [place] Start: 2016 Screening for Chlamy javi trachomatis Chlamydia screen [place], [place] Start: 02-17-2015 HIV screening HIV screen [place], [place] Start: 02-17-2011 HPV vaccine (1 - 2-d ose series) HPV vaccine (1 - 2-dose series) [place], [place] Start: 02-17-2001 Varicella vaccine (1 of 2 - 2-dose childhood series) Varicella vaccine (1 of 2 - 2-dose childhood series) [place] ABO/Rh ABO/Rh Lab Routi ne examination or test, positive result Ordered: 09/17/2023 [facility] Comment on above: Ordered: 09/17/2023 Antibody screen Antibody screen Lab Routine examination or test, positive result Ordered: 09/17/2023 [facility] Comment on above: Ordered: 09/17/2023 CBC panel - Blood by Automated count CBC Lab Routine examination or test, positive result Ordered: 09/17/2023 [facility] Comment on above: Ordered: 09/17/2023 Hemoglobin A1c/Hemoglobin.total in Blood Hemoglobin A1c Lab Routine examination or test, positive result Ordered: 09/17/2023 [facility] Comment on above: Ordered: 09/17/2023 Hepatitis B virus surface Ag [Presence] in Serum or Plasma by Immunoassay Hepatitis B surface antigen Lab Routine examination or test, positive result Ordered: 09/17/2023 [facility] Work Phone: Comment on above: Ordered: 09/17/2023 Hepatitis C virus Ab [Presence] in Serum or Plasma by Immunoassay Hepatitis C antibody Lab Routine examination or test, positive result Ordered: 09/17/2023 [facility] Comment on above: Ordered: 09/17/2023 HIV-1/HIV-2 antigen/antibody combination immunoassay HIV-1 and HIV-2 antibodies Lab Routine examination or test, positive result Ordered: 09/17/2023 [facility] Comment on above: Ordered: 09/17/2023 Reagin Ab [Presence] in Serum by RPR RPR Lab Routine examination or test, positive result Ordered: 09/17/2023 [facility] Comment on above: Ordered: 09/17/2023 Rubella antibody, IgG Rubella an tibody, IgG Lab Routine examination or test, positive result Ordered: 09/17/2023 [facility] Comment on above: Ordered: 09/17/2023 Immunizations Immunization Date Immunization Notes Care Provider Nafisa valles 01-17-2020 diphtheria, tetanus toxoids and acellular pertussis vaccine, unspecified formulation [facility] , [place] 01-17-2020 measles, mumps and r ubella virus vaccine [facility], [place] Payers Date Payer Category Payer Medicaid (Managed Care) [employer] [id number] 2022 [employer] [id number]. [id number] 2022 Unknown BCBS BCBS [id number] 2022-Present [phone] [address] [place] [address] [id number]. [id number] 2022 Unknown [id number] 2000 Unknown [id number] 2.16.840.1.829116.3.579.2. 173 2000 Unknown [id number] 2.16.840.1.869187.3.579.2. 593 2000 Unknown [id number] 2.16.840.1.124532.3.579.2. 1259 2000 Unknown [id number] 2.16.840.1.249365.3.579.2. 1259 2000 Unknown [id number] 2.16.840.1.984172.3.579.2. 1259 2000 Unknown [id number] 2.16.840.1.938508.3.579.2. 1259 2000 Unknown [id number] 2.16.840.1.856969.3.579.2. 9 2000 Unknown [id number] 2.16.840.1.055126.3.579.2. 9 2000 Unknown [id number] 2.16.840.1.530190.3.579.2. 1258 2000 Unknown [id number] 2.16.840.1.128846.3.579.2. 9 2000 Unknown [id number] 2.16.840.1.309531.3.579.2. 1258 2000 Unknown [id number] 2.16.840.1.806472.3.579.2. 9 2000 Unknown [id number] 2.16.840.1.870444.3.579.2. 1258 2000 Unknown [id number] 2.16.840.1.188278.3.579.2. 9 2000 Unknown [id number] 2.16.840.1.089080.3.579.2. 9 2000 Unknown [id number] 2.16.840.1.092965.3.579.2. 9 1959 Unknown [id number] 1.2.840.539518.1.13.239.2. 7.3.596986.315 Social History Date Type Detail Facility Start: 01-17-2020 [facility] Start: 01-17-2020 End: 09-17-2023 Cigarettes smoked current (pack per day) - [facility] Start: 01-17-2020 End: 03-03-2023 Tobacco use and exposure Never used [facility] Start: 01-17-2020 End: 09-17-2023 Alcohol intake Ex-drinker (finding) [facility] Start: 2000 Sex Assigned At Not on file M [facility] Exposure to SARS-CoV -2 (event) Not sure [facility] Start: 03-03-2023 Tobacco smoking stat [facility] Tobacco smoking consumption unknown [facility] Start: 03-03-2023 End: 09-17-2023 Tobacco use panel [facility] Start: 03-03-2023 Tobacco Comment *Current smoke r, frequency unknownSmokes 5 or less cigarettes a day [facility] Start: 08-04-2023 [facility] Clinical Notes 09-17-2023 to 04-25-2024 Pino Higgins MD - 04/25/2024 3:15 PM EDSHRAVAN Yi - 04/18/2024 1:30 PM Sonya Barclay MA - 04/06/2024 4:30 PM Allison Oneal CNM - 03/30/2024 8:30 AM EST Note Date & Type Note Facility 04-25-2024 History of Presen t illness Narrative Labor cautions documented in this encounter [facility] 04-18-2024 History of Presen t illness Narrative Subjective No chief complaint on file. Attila Tesfaye is a 24 y.o. at 38w6d with a working estimated date of delivery of 04/26/2024, by Last Menstrual Period who presents for a routine visit. She denies vaginal bleeding, leakage of fluid, decreased movements, or contractions. OB History Para Term AB Living 2 1 1 SAB IAB Ectopic Multiple Live Births # Outcome Date GA Lbr Adriel/2nd Weight Sex Type Anes PTL Lv 2 Current 1 Para 6 lb 11 oz Vag-Spont Her is complicated by: swollen ankles Objective Physical Exam weight: 150 lb Expected Total Weight Gain: 25 lb-35 lb Pregravid BMI: 23.19 BP: 120/80 Urine protein-negative Urine glucose-negative Assessment/Plan Diagnoses and all orders for this visit: Encounter for supervision of other normal , third trimester Large for dates - US OB follow up transabdominal approach; Future Marijuana use Continue vitamin. Labs reviewed. GBS taken. Expected mode of delivery vaginal Follow up in 1 week for a routine visit. documented in this encounter [facility] 04-06-2024 History of Presen t illness Narrative Subjective No chief complaint on file. Attila Tesfaye is a 24 y.o. at 37w1d with a working estimated date of delivery of 04/26/2024, by Last Menstrual Period who presents for a routine visit. She denies vaginal bleeding, leakage of fluid, decreased movements, or contractions. OB History Para Term AB Living 2 1 1 SAB IAB Ectopic Multiple Live Births # Outcome Date GA Lbr Adriel/2nd Weight Sex Type Anes PTL Lv 2 Current 1 Para 6 lb 11 oz Vag-Spont Her is complicated by: Objective Physical Exam weight: 145 lb Expected Total Weight Gain: 25 lb-35 lb Pregravid BMI: 23.19 BP: 120/60 Urine protein-negative Urine glucose-negative Assessment/Plan Continue vitamin. Labs reviewed. GBS taken. Expected mode of delivery Follow up in 1 week for a routine visit. documented in this encounter [facility] 03-30-2024 History of Presen t illness Narrative Subjective No chief complaint on file. Attila Tesfaye is a 24 y.o. at 36w1d with a working estimated date of delivery of 04/26/2024, by Last Menstrual Period who presents for a routine visit. She denies vaginal bleeding, leakage of fluid, decreased movements, or contractions. OB History Para Term AB Living 2 1 1 SAB IAB Ectopic Multiple Live Births # Outcome Date GA Lbr Adriel/2nd Weight Sex Type Anes PTL Lv 2 Current 1 Para 6 lb 11 oz Vag-Spont Her is complicated by: marijuana use Objective Physical Exam weight: 143 lb Expected Total Weight Gain: 25 lb-35 lb Pregravid BMI: 23.19 BP: 100/60 Urine protein-negative Urine glucose-negative Assessment/Plan Diagnoses and all orders for this visit: Encounter for supervision of other normal , third trimester screening for streptococcus B - STREPTOCCOUS, GROUP B CULTURE; Future Continue vitamin. Labs reviewed. GBS taken. Expected mode of delivery Follow up in 1 week for a routine visit. documented in this encounter [facility] 03-24-2024 History of Presen t illness Narrative Subjective No chief complaint on file. Attila Tesfaye is a 24 y.o. at 35w2d with a working estimated date of delivery of 04/26/2024, by Last Menstrual Period who presents for a routine visit. She denies vaginal bleeding, leakage of fluid, decreased movements, or contractions. OB History Para Term AB Living 2 1 1 SAB IAB Ectopic Multiple Live Births # Outcome Date GA Lbr Adriel/2nd Weight Sex Type Anes PTL Lv 2 Current 1 Para 6 lb 11 oz Vag-Spont Her is complicated by: marijuana use and vaping Objective Physical Exam weight: 141 lb Expected Total Weight Gain: 25 lb-35 lb Pregravid BMI: 23.19 BP: 114/70 Urine protein Urine glucose Assessment/Plan Continue vitamin. Labs reviewed. GBS taken. Expected mode of delivery Follow up in 1 week for a routine visit. documented in this encounter [facility] 03-09-2024 History of Presen t illness Narrative Subjective No chief complaint on file. Attila Tesfaye is a 24 y.o. at 33w1d with a working estimated date of delivery of 04/26/2024, by Last Menstrual Period who presents for a routine visit. She denies vaginal bleeding, leakage of fluid, decreased movements, or contractions. OB History Para Term AB Living 2 1 1 SAB IAB Ectopic Multiple Live Births # Outcome Date GA Lbr Adriel/2nd Weight Sex Type Anes PTL Lv 2 Current 1 Para 6 lb 11 oz Vag-Spont Her is complicated by:marijuana use, vaping Objective Physical Exam weight: 140 lb Expected Total Weight Gain: 25 lb-35 lb Pregravid BMI: 23.19 BP: 110/60 Urine protein-negative Urine glucose-negative Assessment/Plan Diagnoses and all orders for this visit: Encounter for supervision of other normal , third trimester Marijuana use Continue vitamin. Labs reviewed. GBS at 36 weeks Expected mode of delivery Patient wants to wait for spontaneous labor and at this time does not want an induction. Follow up in 2 weeks for a routine visit. documented in this encounter [facility] 02-25-2024 History of Presen t illness Narrative Subjective No chief complaint on file. Attila Tesfaye is a 24 y.o. at 31w2d with a working estimated date of delivery of 04/26/2024, by Last Menstrual Period who presents for a routine visit. She denies vaginal bleeding, leakage of fluid, decreased movements, or contractions. OB History Para Term AB Living 2 1 1 SAB IAB Ectopic Multiple Live Births # Outcome Date GA Lbr Adriel/2nd Weight Sex Type Anes PTL Lv 2 Current 1 Para 6 lb 11 oz Vag-Spont Her is complicated by: marijuana use, social stress with FOB of her first child. Custody issues and court dates. Objective Physical Exam weight: 136 lb Expected Total Weight Gain: 25 lb-35 lb Pregravid BMI: 23.19 BP: 110/60 Urine protein-negative Urine glucose-negative Assessment/Plan Diagnoses and all orders for this visit: Encounter for supervision of other normal , third trimester Continue vitamin. Labs reviewed. GBS at 36 weeks Expected mode of delivery Follow up in 1 week for a routine visit. documented in this encounter [facility] 02-04-2024 History of Presen t illness Narrative Subjective No chief complaint on file. Attila Tesfaye is a 23 y.o. at 28w2d with a working estimated date of delivery of 04/26/2024, by Last Menstrual Period who presents for a routine visit. She denies vaginal bleeding, leakage of fluid, decreased movements, or contractions. OB History Para Term AB Living 2 1 1 SAB IAB Ectopic Multiple Live Births # Outcome Date GA Lbr Adriel/2nd Weight Sex Type Anes PTL Lv 2 Current 1 Para 6 lb 11 oz Vag-Spont Her is complicated by: marijuana use, + vaping, custody corral with first FOB The following portions of the chart were reviewed this encounter and updated as appropriate: Objective Physical Exam weight: 128 lb Expected Total Weight Gain: 25 lb-35 lb Pregravid BMI: 23.19 BP: 120/78 Urine protein Urine glucose Labs: reviewed Imaging Will send order to [facility] for 2 weeks for 30 week growth scan Assessment/Plan Diagnoses and all orders for this visit: Encounter for supervision of other normal , second trimester Screening for diabetes mellitus - GLUCOSE, GESTATIONAL SCREEN (50G)-135 CUTOFF; Future Screening for iron deficiency anemia - CBC; Future Continue vitamin. Labs reviewed. Rhogam GTT . Follow up in 2 weeks for a routine visit. documented in this encounter [facility] 01-07-2024 History of Presen t illness Narrative Subjective No chief complaint on file. Attila Tesfaye is a 23 y.o. at 24w2d with a working estimated date of delivery of 04/26/2024, by Last Menstrual Period who presents for a routine visit. She denies vaginal bleeding, leakage of fluid, decreased movements, or contractions. OB History Para Term AB Living 2 1 1 SAB IAB Ectopic Multiple Live Births # Outcome Date GA Lbr Adriel/2nd Weight Sex Type Anes PTL Lv 2 Current 1 Para 6 lb 11 oz Vag-Spont Her is complicated by: The following portions of the chart were reviewed this encounter and updated as appropriate: Objective Physical Exam weight: 122 lb Expected Total Weight Gain: 25 lb-35 lb Pregravid BMI: 23.19 BP: 100/60 Urine protein-negative Urine glucose-negative Labs: reviewed Imaging Assessment/Plan Diagnoses and all orders for this visit: Encounter for supervision of other normal , second trimester Marijuana use Continue vitamin. Labs reviewed. Rhogam O+ positive GTT at 28 weeks Patient is actively smoking marijuana and vaping. Today in office her eyes are glassy, red and half closed. Admits to smoking on the way here. I did educate her that marijuana is not recommended in and vaping is not healthy as well. We did discuss also a positive drug screen at the hospital is a social consult. PVU Follow up in 4 weeks for a routine visit. documented in this encounter [facility] 12-09-2023 History of Presen t illness Narrative Subjective No chief complaint on file. Attila Tesfaye is a 23 y.o. at 20w1d with a working estimated date of delivery of 04/26/2024, by Last Menstrual Period who presents for a routine visit. She denies vaginal bleeding, leakage of fluid, decreased movements, or contractions. OB History Para Term AB Living 2 1 1 SAB IAB Ectopic Multiple Live Births # Outcome Date GA Lbr Adriel/2nd Weight Sex Type Anes PTL Lv 2 Current 1 Para 6 lb 11 oz Vag-Spont Her is complicated by: marijuana use The following portions of the chart were reviewed this encounter and updated as appropriate: Objective Physical Exam weight: 119 lb Expected Total Weight Gain: 25 lb-35 lb Pregravid BMI: 23.19 BP: 100/60 Urine protein-negative Urine glucose-negative Labs: reviewed Imaging Assessment/Plan Diagnoses and all orders for this visit: Encounter for supervision of other normal , second trimester Marijuana use Continue vitamin. Labs reviewed Rhogam not needed O+ positive GTT at 28 weeks Follow up in 2 weeks for a routine visit. documented in this encounter [facility] 11-11-2023 History of Presen t illness Narrative Subjective No chief complaint on file. Attila Tesfaye is a 23 y.o. at 16w1d with a working estimated date of delivery of 04/26/2024, by Last Menstrual Period who presents for a routine visit. She denies vaginal bleeding, leakage of fluid, decreased movements, or contractions. OB History Para Term AB Living 2 1 1 SAB IAB Ectopic Multiple Live Births # Outcome Date GA Lbr Adriel/2nd Weight Sex Type Anes PTL Lv 2 Current 1 Para 6 lb 11 oz Vag-Spont Her is complicated by: marijuana use,, vaping, custody corral with FOB of her first baby The following portions of the chart were reviewed this encounter and updated as appropriate: Objective Physical Exam weight: 118 lb Expected Total Weight Gain: 25 lb-35 lb Pregravid BMI: 23.19 BP: 90/50 Urine protein-negative Urine glucose-negative Labs: reviewed Imaging Assessment/Plan Diagnoses and all orders for this visit: Encounter for supervision of other normal , second trimester related condition in second trimester - US OB 14+ weeks anatomy scan; Future Continue vitamin. Labs reviewed. Rhogam not needed patient is O+ GTT at 28 weeks Follow up in 2 weeks for a routine visit. documented in this encounter [facility] 10-14-2023 History of Presen t illness Narrative Subjective No chief complaint on file. Attila Tesfaye is a 23 y.o. at 12w1d with a working estimated date of delivery of 04/26/2024, by Last Menstrual Period who presents for a routine visit. She denies vaginal bleeding, leakage of fluid, decreased movements, and contractions. OB History Para Term AB Living 2 1 1 SAB IAB Ectopic Multiple Live Births # Outcome Date GA Lbr Adriel/2nd Weight Sex Type Anes PTL Lv 2 Current 1 Para 6 lb 11 oz Vag-Spont Her is complicated by: The following portions of the chart were reviewed this encounter and updated as appropriate: Objective Physical Exam weight: 111 lb, Pregravid BMI: 23.19 Expected Total Weight Gain: 25 lb-35 lb BP: 110/70 Labs Imaging Assessment/Plan Diagnoses and all orders for this visit: Encounter for supervision of other normal , first trimester examination or test, positive result - Ambulatory referral to Obstetrics / Gynecology Marijuana use Patient admits to using marijuana frequently and states I am cutting way back Urine protein-negative Urine glucose-negative Continue vitamin. Labs reviewed. Follow up in 4 weeks for a routine visit. documented in this encounter [facility] 09-17-2023 History of Presen t illness Narrative Subjective Attila Tesfaye is a 23 y.o. at 8w2d with a working estimated date of delivery of 04/26/2024, by Last Menstrual Period who presents for an initial visit. This is planned. Patient Care Team: Mounika Arroyo MD as PCP - General (Family Medicine) OB History Para Term AB Living 2 1 1 SAB IAB Ectopic Multiple Live Births # Outcome Date GA Lbr Adriel/2nd Weight Sex Type Anes PTL Lv 2 Current 1 Para 6 lb 11 oz Vag-Spont Her is complicated by: vaping, situational stress with ex over custody of her daughter Patient referred by self Gynecology History Last Pap 05/14/21 The following portions of the chart were reviewed this encounter and updated as appropriate: Review of Systems Objective Physical Exam weight: 112 lb Expected Total Weight Gain: 25 lb-35 lb Pregravid BMI: 23.19 Urine protein Urine glucose Labs Assessment/Plan Diagnoses and all orders for this visit: examination or test, positive result - Hepatitis B surface antigen - Rubella antibody, IgG - CBC - Antibody screen - RPR - Hemoglobin A1c - TSH W/REFLEX TO FT4; Future - HIV-1 and HIV-2 antibodies - ABO/Rh - DRUG TOX MONITORIGN 6 W/ CONF,URINE; Future - Hepatitis C antibody - Urine culture; Future - URINALYSIS MICROSCOPIC; Future - C. trachomatis / N. gonorrhoeae, DNA probe; Future Blue education folder given. Patient educated on safe medication list. Genetic testing information given. Discussed the do's and don'ts in the blue folder. We discussed labs and what we draw and what we are testing for. Patient is also informed that we do a urine drug test. Patient also given office phone number and The [facility] number to call in case of an emergency or after hours needs. PVU and all questions answered. We did discuss place of delivery. Patient should plan to go to [facility] for all services unless an emergency and they need to go to the closest ER. We can make other arrangements possibly if patient would like to deliver at another facility but I did explain I am now at [facility] 100% of the time and would like to do all deliveries there. documented in this encounter [facility] Evaluation note Diagnosis Encounter for supervision of other normal , second trimester- Primary Marijuana use documented in this [facility]* Diagnosis examination or test, positive result- Primary [facility] Diagnosis Encounter for supervision of other normal , first trimester- Primary examination or test, positive result Marijuana use documented in this encounter [facility]* Diagnosis Encounter for supervision of other normal , second trimester- Primary related condition in second trimester [facility] Diagnosis Encounter for supervision of other normal , second trimester- Primary Screening for diabetes mellitus Screening for iron deficiency anemia [facility] Diagnosis Encounter for supervision of other normal , third trimester- Primary [facility] Diagnosis Encounter for supervision of other normal , third trimester- Primary Marijuana use documented in this encounter [facility]* Diagnosis Encounter for supervision of other normal , third trimester- Primary screening for streptococcus B screening for Streptococcus B [facility] Diagnosis Encounter for supervision of other normal , third trimester- Primary Marijuana use Large for dates [facility] Diagnosis Encounter for supervision of other normal , third trimester- Primary Large for dates Marijuana use Large for dates [facility] Diagnosis Supervision of normal intrauterine in multigravida, third trimester- Primary 39 weeks gestation of documented in this encounter [facility] Course * Vilma Orantes APRN - CNM - 01/19/2020 7:00 AM EST Obstetrical Discharge Form Gestational Age:40w2d Antepartum complications: none Date of Delivery: 01/17/20 Type of Delivery: Delivered By: Moiz Oneal APRN CNM Assisted By:N/A} Baby: female Anesthesia: epidural Intrapartum complications: None Feeding method: bottle Results for orders placed or performed during the hospital encounter of 01/17/20 GBS, External Result Result Value Ref Range GBS, External Result negative C. Trachomatis, External Result Result Value Ref Range C. Trachomatis, External Result negative N. Gonorrhoeae, External Result Result Value Ref Range N. Gonorrhoeae, External Result negative CBC auto differential Result Value Ref Range WBC 15.6 (H) 4.5 - 13.5 k/uL RBC 4.00 3.95 - 5.11 m/uL Hemoglobin 11.2 (L) 11.9 - 15.1 g/dL Hematocrit 34.0 (L) 36.3 - 47.1 % MCV 85.0 82.6 - 102.9 fL MCH 28.0 25.2 - 33.5 pg MCHC 32.9 28.4 - 34.8 g/dL RDW 13.4 11.8 - 14.4 % Platelets 238 138 - 453 k/uL MPV 11.0 8.1 - 13.5 fL NRBC Automated 0.0 0.0 per 100 WBC Differential Type NOT REPORTED Seg Neutrophils 81 (H) 34 - 64 % Lymphocytes 13 (L) 25 - 45 % Monocytes 4 2 - 8 % Eosinophils % 1 1 - 4 % Basophils 0 0 - 2 % Immature Granulocytes 1 (H) 0 % Segs Absolute 12.64 (H) 1.80 - 8.00 k/uL Absolute Lymph # 2.10 1.20 - 5.20 k/uL Absolute [place] # 0.69 0.10 - 1.40 k/uL Absolute Eos # 0.08 0.00 - 0.44 k/uL Basophils Absolute 0.04 0.00 - 0.20 k/uL Absolute Immature Granulocyte 0.09 0.00 - 0.30 k/uL WBC Morphology NOT REPORTED RBC Morphology NOT REPORTED Platelet Estimate NOT REPORTED DRUG SCREEN MULTI URINE Result Value Ref Range Amphetamine Screen, Ur NEGATIVE NEGATIVE Barbiturate Screen, Ur NEGATIVE NEGATIVE Benzodiazepine Screen, Urine NEGATIVE NEGATIVE Cocaine Metabolite, Urine NEGATIVE NEGATIVE Methadone Screen, Urine NEGATIVE NEGATIVE Opiates, Urine NEGATIVE NEGATIVE Phencyclidine, Urine NEGATIVE NEGATIVE Propoxyphene, Urine NEGATIVE NEGATIVE Cannabinoid Scrn, Ur NEGATIVE NEGATIVE Oxycodone Screen, Ur NEGATIVE NEGATIVE Methamphetamine, Urine NEGATIVE NEGATIVE Tricyclic Antidepressants, Urine NEGATIVE NEGATIVE MDMA, Urine NOT REPORTED NEGATIVE Buprenorphine Urine NEGATIVE NEGATIVE Test Information NOT REPORTED HIV, External Result Result Value Ref Range HIV, External Result negative RPR, External Lab Result Value Ref Range RPR, External Result nonreactive Hepatitis B, External Result Result Value Ref Range Hep B, External Result negative Rubella Titer, External Result Result Value Ref Range Rubella Titer, External Result immune Rh Factor, External Result Result Value Ref Range Rh Factor, External Result positive ABO, External Result Result Value Ref Range ABO, External Result O complications: none Discharge Medication: Attila Tesfaye Home Medication Instructions [id number] Printed on:01/19/20 0700 Medication Information [id number] PO Take 1 tablet by mouth daily Admit date: 01/17/2020 7:31 AM Discharge Date: 01/19/2020 Discharged to: Home in stable condition Plan: Follow up with Hannah Oneal CNM in 2 weeks documented in this encounter Discharge Instructions * Instructions* Natasha Graf RN - 01/19/2020 Follow-up with your OB doctor as specified. [facility] OB Department phone: Dr. Rey Vaz [facility] Dr. Bharat Whitman [facility] [address] [facility] [address] [facility] [address] [place] [address] Bharat Erickson [facility] [address] [facility] [id number] [phone] Hannah Oneal, MSN, SOUNDING DEVICE OPERATOR, CNM [facility] [address] [facility] [address] [address] Samson [facility] [address] [facility] [address] Vilma Orantes CN [address] [place], [place] [id number] Aye Melendez CN [address] [place] [address] [place] [address] [phone] DIET Eat a well balanced diet focusing on foods high in fiber and protein. Drink plenty of fluids especially water. To avoid constipation you may take a mild stool softener as recommended by your doctor or court usher. ACTIVITY Gradually increase your activity. Resume exercise regimen only after advice by your doctor or court usher. Avoid lifting anything heavier than a gallon of milk for SIX weeks. Avoid driving until your doctor or court usher has given their approval. Rise slowly from a lying to sitting and then a standing position. Climb stairs one at a time. Use caution when carrying your baby up and down the stairs. NO SEXUAL Activity for 4-6 weeks or until advised by your doctor; Nothing in vagina: intercourse, tampons, or douching. Be prepared to discuss family planning at your follow-up OB visit. You may feel tired or have a lack of energy. You may continue your vitamin to replenish nutrients post delivery. Nap when baby naps to catch up on sleep. EMOTIONS You may feel loera, sad, teary, & overwhelmed. Contact your OB provider if you feel you may be showing signs of depression, or have thoughts of harming yourself or your . If will not stop crying, contact another adult for help or place infant in their crib on their back and take a break. NEVER shake your infant. BLEEDING Vaginal bleeding will decrease in amount over the next few weeks. You will notice that as your activity increases, your flow may increase. This is your body's way oftelling you, you need to take things easier and rest more often. Call your care provider if you are saturating more than one maxi pad in an hour & resting does not help. BREAST CARE Take medications as recommended by your doctor or court usher for pain If you develop a warm, red, tender area on your breast or develop a fever contact your OB provider. For moms: If you become engorged, feeding may be more difficult or painful for 1-2 days. You may find it helpful to hand express some milk so that the can latch on more easily. While , continue to take your vitamins as directed by your doctor or court usher. Refer to the booklet in the folder/binder for more information. If you feel you need more assistance or have questions, please call Yojana Chase IBCLC, travel service consultant, at or the OB department to schedule an appointment or phone consultation. For more FREE help, visit the Support Group on Thursday evenings at 7 pm in the OB department. For NON- moms: You may apply ice packs to your breasts over your bra for twenty minutes at a time for comfort. Avoid stimulation to your breasts, when showering allow the water to strike your back not your breasts. Wear a good fitting bra until your milk dries, such as a sports bra. INCISIONAL CARE / ADY CARE If you have an acticoat dressing in place after your please leave your dressing in place for one week until you follow up with your provider. They will remove this dressing in the office when you see them. If you have a GARETT negative pressure wound dressing please leave the dressing in place for 7 days after delivery. Your health care provider will remove the dressing at your one week incisional check.You may shower with your GARETT dressing, however the GARETT pump should be disconnected and placed in a safe location where it will not get wet. To disconnect the pump from the dressing, press the orange button to pause the therapy, unscrew the two part connector, and place the pump somewhere safe. While disconnected, ensure the end of the tubing attached to the dressing is facing downward so that water does not enter the tubing. Then re-connect the pump after your shower is complete. If your dressing starts to peel up or becomes soiled prior to your appointment with your provider, you may remove the dressing and clean your incision as directed below. Clean your incision in the shower with mild soap. After shower pat the incision area dry and allow the area open to air. If used, Steri-strips should be completely removed by 2 weeks but you may remove them as they become loose or soiled. If used, Virgen should be removed by your care provider. If used/ordered, an abdominal binder may provide support for your incision. Use the ady-bottle after toileting until bleeding stops. Cleanse your perineum from front to back If used, stitches will dissolve in 4-6 weeks. You may use a sitz bath or soak in a clean tub as needed for comfort. Kegel exercises will help restore bladder control. SWELLING Try to keep your legs elevated when you are sitting. When lying down keep your legs elevated. When wearing stocking or socks, make sure they are not too tight. WHEN TO CALL THE DOCTOR If you have a temp of 100.6 or more. If your bleeding has increased and you are saturating a pad in an hour. Your abdomen is tender to touch. You are passing blood clots bigger than the size of a lemon. If you are experiencing extreme weakness or dizziness. If you are having flu-like symptoms such as achy muscles or joints. There is a foul smell or a green color to your vaginal bleeding. If you have pain that cannot be relieved. You have persistent burning or frequency with urination. Call if you have concerns about your well-being. You are unable to sleep, eat, or are having thoughts of harming yourself or your baby. You have swelling, bleeding, drainage, foul odor, redness, or warmth in/around your incision or stitches. You have a red, warm, tender area in your calf. * Attachments The following attachments cannot be sent through Care Everywhere. * (Italian) * OB CORONAVIRUS (COVID-19): , AND BABY CARE DISCHARGE INSTRUCTIONS documented in this encounter History of Present Illness * Yojana Chase IBCLC - 01/19/2020 10:50 AM EST note: [] Feeding observed, see flowsheet. [x] Patient states is going well: no complaints. Denies questions or concerns. [] Patient has questions/concerns. [x] Verbalizes understanding, advised to follow up with travel service consultant if necessary. * Yojana Chase IBCLC - 01/18/2020 12:57 PM EST education: [x] Latch/ good latch vs shallow latch/ steps to obtaining deep latch [x] How to know if infant is eating enough/ feedings per 24 hours, wet/dirty diapers [x] Feeding/satiety cues education resources given: [x] How to Breastfeed your baby - [facility] publication [x] Information on feeding cues [x] Support group handout [x] Breastpump cleaning guidelines - CDC [x] & Safe Sleep handout - [facility] publication [x] Calling All Dads! Handout - [facility] publication [] Breast and Nipple Care - [facility] [] Breastmilk Collection & Storage - [facility] [] Breastpump Kit Care - [facility] [] Going Back to Work - [facility] [] Preventing Engorgement - [facility] Supplies given: [] [place], soap and basin for breastpump cleaning [] Insurance pump provided through [employer] [] Insurance pump provided through [employer] Explained to patient, patient verbalizes understanding. Signed: Yojana Chase RN, BSN, IBCLC * Vilma Orantes APRN - CNM - 01/18/2020 11:57 AM EST Department of Obstetrics and Gynecology Labor and Delivery Post Progress Note Post Day 1 Doing well No major C/O Afebrile VSS Good GI/ function Fundus firm, non tender Locia scant Extremities normal Plan / instruction : Plans to go home tomorrow * Bladimir Oneal APRN - CNM - 01/17/2020 11:03 AM EST Department of Obstetrics and Gynecology Progress Note SUBJECTIVE: Feeling some pressure and discomfort OBJECTIVE: Vitals: 01/17/20 1049 01/17/20 1051 01/17/20 1054 01/17/20 1100 BP: 104/64 Pulse: 81 Resp: 16 Temp: TempSrc: SpO2: 100% 100% Weight: Height: heart rate: Baseline Heart Rate: 135 Accelerations: present Coke Loader Variability: moderate Decelerations: absent Contraction frequency: 1-2 minutes Membranes: Ruptured clear fluid Cervix: Dilation: 9 cm Effacement: 90 Station: 0 Position: mid ASSESSMENT & PLAN: Continue routine labor orders Anticipate * Bladimir Oneal APRN - CNM - 01/17/2020 9:20 AM EST Department of Obstetrics and Gynecology Progress Note SUBJECTIVE: Patient resting comfortably after epidural placed. States she feels none of the contractions OBJECTIVE: Vitals: 01/17/20 0907 01/17/20 0909 01/17/20 0914 01/17/20 0919 BP: (!) 94/52 (!) 105/55 (!) 108/55 Pulse: 77 76 69 Resp: Temp: TempSrc: SpO2: 98% 98% 99% Weight: Height: heart rate: Baseline Heart Rate: 140 Accelerations: present Group Home Variability: moderate Decelerations: absent Contraction frequency: 1-2 minutes Membranes: Ruptured clear fluid- SVE performed, AROM performed with sterile finger cot, return of large amount of clear, odorless fluid. heart tones 140's before, during and after rupture. Patient tolerated well. Denies pain at this time Cervix: Dilation: 6 cm Effacement: 90 Station: 0 Position: mid ASSESSMENT & PLAN: Continue routine labor orders Continue with spontaneous labor management Frequent position changes Dr Roth updated with patients progress. Anticipate documented in this encounter Assessments Diagnosis Term Advance Directives No Advanced Directives Records FoundLatest Code Status on File Code Status Date Activated Date Inactivated Comments Full Code 01/17/2020 3:45 PM Full Code 01/17/2020 8:11 AM 01/17/2020 3:45 PM Summary Purpose Family History No Family History Records FoundNo Family History Records FoundNo Family History Records Found Reason for Referral Specialty Diagnoses / Procedures Referred By Parisa adhikari Referred To Contact Obstetrics and Gynecology Diagnoses examination or test, positive result Procedures [facility] OFFICE/OUTPATIENT NEW HIGH MDM 60 MINUTES Bladimir Oneal CNM [address] [facility] [place] [address] Bladimir Oneal CNM [address] [place] [address] Referral ID Status Reason Start Date Expiration Date Visits Requested Visits Authorized [id number] Pending Review Specialty Services Required 10/08/2023 04/05/2024 1 1 Additional Source Comments Reason for Visit (unrecogniz ed section and content) Reason Comments Laboring Status Reason Specialty Diagnoses / Procedures Referre d By Contact Referred To Contact Diagnoses Term Bladimir Oneal APRN - CNM [address] [place] [address] [facility] Specialty Diagnoses / Procedures Referred By Parisa adhikari Referred To Contact Obstetrics and Gynecology Diagnoses examination or test, positive result Procedures VA OFFICE/OUTPATIENT NEW HIGH MDM 60 MINUTES Bladimir Oneal, CNM [address] [place] [address] Bladimir Oneal, CNM [address] [place] [address] Referral ID Status Reason Start Date Expiration Date V isits Requested Visits Authorized [id number] Closed Specialty Services Required 10/08/2023 04/05/2024 1 1 INFORMATION SOURCE (unrecogn ized section and content) DATE CREATED AUTHOR 01/19/2020 [facility] DATE CREATED AUTHOR AUTHOR'S ORGANIZ ATION 03/02/2021 [facility] DATE CREATED AUTHOR AUTHOR'S ORGANIZ ATION 04/27/2024 [facility] dical Specialists EPIC Care Teams (unrecognized sec tion and content) Nuclear Medical Technologist Relationship Specialty Start Date End Date Mounika Arroyo MD [address] [place] [address] PCP - General Family Medicine 06/24/22 Nuclear Medical Technologist Relationship Specialty Start Date End Date Mounika Arroyo MD [address] [facility] [address] [place] [address] PCP - General Family Medicine 06/24/22 Nuclear Medical Technologist Relationship Specialty Start Date End Date Mounika Arroyo MD [address] [facility] [place] [address] PCP - General Family Medicine 06/24/22 Nuclear Medical Technologist Relationship Specialty Start Date End Date Mounika Arroyo MD [address] [facility] [place] [address] PCP - General Family Medicine 06/24/22 Nuclear Medical Technologist Relationship Specialty Start Date End Date Mounika Arroyo MD [address] [facility] [place] [address] PCP - General Family Medicine 06/24/22 Nuclear Medical Technologist Relationship Specialty Start Date End Date Mounika Arroyo MD [address] [facility] [place] [address] PCP - General Family Medicine 06/24/22 Nuclear Medical Technologist Relationship Specialty Start Date End Date Mounika Arroyo MD [address] [facility] [place] [address] PCP - General Family Medicine 06/24/22 Nuclear Medical Technologist Relationship Specialty Start Date End Date Mounika Arroyo MD [address] [facility] [place] [address] PCP - General Family Medicine 06/24/22 Nuclear Medical Technologist Relationship Specialty Start Date End Date Mounika Arroyo MD [address] [facility] [place] [address] PCP - General Family Medicine 06/24/22 Nuclear Medical Technologist Relationship Specialty Start Date End Date Mounika Arroyo MD [address] [facility] [place] [address] PCP - General Family Medicine 06/24/22 FOR RECORDS PERTAINING TO PATIENTS WHO ARE OR HAVE BEEN ENROLLED IN A CHEMICAL DEPENDENCY/SUBSTANCEABUSE PROGRAM, SOME INFORMATION MAY BE OMITTED. This clinical summary was aggregated from multiple sources. Caution should be exercised in using it in the provision of clinical care. This summary normalizes information from multiple sources, and as a consequence, information in this document may materially change the coding, format and clinical context of patient data. In addition, data may be omitted in some cases. CLINICAL DECISIONS SHOULD BE BASED ON THE PRIMARY CLINICAL RECORDS. [facility]. provides no warranty or guarantee of the accuracy or completeness of information in this document.
== END 2024-04-29 10:26 | disposition home or self-care (01) ==
LOC: US 09:03 → FBC 09:04
PROVIDERS: Visit Provider Obstetrics & Gynecology
DX: O48.0 Post-term pregnancy (principal); Z3A.40 40 weeks gestation of pregnancy
CPT/HCPCS: 76818

== ENCOUNTER 2024-05-03 14:17 | Outpatient (OUT) | payer BC, OTHER, SELFPAY ==
--- NOTE | 2024-05-03 | US_ITS ---
[address] [address] Patient Name: ATTILA TESFAYE MRN: [id number] date: 2000 Sex: F Assigned Patient Location: [facility] Current Patient Location: Accession/Order Number: [id number] Exam Date: 05/03/2024 16:44 Report Date: 05/03/2024 16:45 At the request of: BLADIMIR PIERRE APRN, CNM Procedure: US OB BPP w non-stress Biophysical profile. Reason for exam: Postterm . COMPARISON: BPP 04/29/2024 TECHNIQUE: Transabdominal imaging of the gravid uterus was obtained. FINDINGS: Pot Builder reports a BPP 8 out of 8.. SARAI is normal at 10.9 cm. heart rate 145 bpm. US/US OB BPP w non-stress IMPRESSION: BPP 8 out of 8. Impression dictated by: Quinn Santamaria Jr., D.O.05/03/2024 4:45 PM Dictation Location: [facility] Electronically authenticated by: [id number] Y Date: 05/03/2024 16:45
[2024-05-03 14:26] VITALS: BP 107/71; PULSE 82
--- OUTSIDE RECORDS SUMMARY | 2024-05-03 14:37 | XMS_ITS | CCD ---
Author Organization [facility] Care Team Providers Care Research Compliance Specialist Name Role Phone Unavailable Primary Care Provider UnavailBLADIMIR Cherry Admitting Unavailable BLADIMIR NOEAL Attending Unavailable MISC, DR BARTON Primary Care Unavailable ANTHONY, DR MOORE Attending Unavailable ANTHONY, DR MOORE Consulting Unavailable ANTHONY, DR MOORE Admitting Unavailable Dina WILLIAMSON, [facility] Primary Care Provider BLADIMIR ONEAL Attending Unavailable FLORO, BLADIMIR L [...] 01-17-2020 ondansetron (ZOFRAN-ODT) disintegrating tablet 8 mg JFPONX-A9-O1-B12-D3- FA PO (1 source) take 1 tablet by mouth once daily JYZDWD-Q9-W1-B12-D3 -FA PO Take 1 tablet by mouth daily 0 Active Scbulxyy-Bog-Cx-FA ( 1 + IRON PO) (20 sources) Dxtyiggc-Fcw-Zq-FA ( 1 + IRON PO) Take by [...] trimester] 11-11-2023 Episodic Other conditions (2 sources) Bzthx-ikx-gltvc at regardless of gestation period; Translations: [Other [...] UA Negative Negative - 1999(110) ++++ mg/dL [facility] Protein, UA Trace Negative - 1999(20) ++++ mg/dL [facility] US OB FOLLOW UP TRANSABDOMIN AL APPROACHon [...] report is generated using voice recognition reporting (Curalate). On occasion Imaging[employer]cribe erroneously drops words from the report or [...] 2023-09-18 17:02:36 Normal Not Available [facility]16 SARS-CoV-2 (COVID-19) RNA JOHNATHAN+probe Ql (Unsp spec) Detected Critically abnormal NOT DETECTED [facility] Comment on above: Result Comment: This test is not yet approved or cleared by the [place] FDA. When there are no FDA-approved or cleared tests available, and other criteria are met, FDA can make tests available under an emergency access mechanism called an Emergency Use Authorization (EUA). The EUA for this test is supported by the [place] of Health and Human Service's (HHS's) declaration [...] longer be used). Performed By: #### C [facility] #### [facility] [address] [place] [address] Dr. Jim Patrick CBC auto differentialon 12-0 Basophils (Bld) [#/Vol] 0.04 10*3/uL [place], [place] Basophils/100 WBC (Bld) 0 % 0 - 2 % [place] Differential Type NOT REPORTED [place] Eosinophils (Bld) [#/Vol] 0.08 10*3/uL [place] Eosinophils/100 WBC (Bld) 1 % 1 - 4 % [place] Erythrocyte distribution width (RBC) [Ratio] 13.4 % 11.8 - 14.4 % [place] Hematocrit (Bld) [Volume fraction] 34.0 % Low 36.3 - 47.1 % [place] Hemoglobin (Bld) [Mass/Vol] 11.2 g/dL Low 11.9 - 15.1 g/dL [place] Immature granulocytes (Bld) [#/Vol] 1 % High 0 [place] Immature granulocytes (Bld) [#/Vol] 0.09 10*3/uL [place] Interpretation and review of laboratory results Abnormal [place] Lymphocytes (Bld) [#/Vol] 2.10 10*3/uL [place] Lymphocytes/100 WBC (Bld) 13 % Low 25 - 45 % [place] MCH (RBC) [Entitic mass] 28.0 pg 25.2 - 33.5 pg [place] MCHC (RBC) [Mass/Vol] 32.9 g/dL 28.4 - 34.8 g/dL [place] MCV (RBC) [Entitic vol] 85.0 fL 82.6 - 102.9 fL [place] Monocytes (Bld) [#/Vol] 0.69 10*3/uL [place] Monocytes/100 WBC (Bld) 4 % 2 - 8 % [place] Platelet mean volume (Bld) [Entitic vol] 11.0 fL 8.1 - 13.5 fL [place] Platelets (Bld) [#/Vol] 238 10*3/uL [place] Platelets (Bld) [#/Vol] NOT REPORTED [place] RBC (Bld) [#/Vol] 4.00 10*6/uL 3.95 - 5.1 1 m/uL [place] RBC morphology finding Nom (Bld) NOT REPORTED [place] Segmented neutrophils/100 WBC (Bld) 81 % High 34 - 64 % [place] Segs Absolute 12.64 High [place] WBC (Bld) [#/Vol] 0.0 10*3/uL 0.0 per 10 0 WBC [place] WBC (Bld) [#/Vol] 15.6 10*3/uL [place] WBC Morphology NOT REPORTED [place] CBC with Diffon 01-17-2020 Abs. Basophil 0.04 k/uL Normal 0.00-0.20 [facility] Comment on above: Performed By: #### C DP #### [facility] [address] [place] [address] Plant Maintenance Supervisor: Samuel Vazquez MD Abs.Imm.Granulocyte 0.09 k/uL Normal 0.00-0.30 [facility] Comment on above: Performed By: #### C DP #### [facility] [address] [place] [address] [employer] Supervisor: Samuel Vazquez MD Abs.Neutrophil (Seg) 12.64 k/uL High 1.80-8.00 [facility] Comment on above: Performed By: #### C DP #### [facility] [address] [place] [address] [employer] Supervisor: Samuel Vazquez MD Basophils/100 WBC (Bld) 0 % Normal 0-2 [facility] Comment on above: Performed By: #### C DP #### [facility] [address] [place], [facility] [employer] Supervisor: Samuel Vazquez MD Eosinophils (Bld) [#/Vol] 0.08 10*3/uL Normal 0.00-0.44 [facility] Comment on above: Performed By: #### C DP #### [facility] [address] [place], [place] [address] [employer] Supervisor: Samuel Vazquez MD Eosinophils/100 WBC (Bld) 1 % Normal 1-4 [facility] Comment on above: Performed By: #### C DP #### [address] [place], [facility] [employer] Supervisor: Samuel Vazquez MD Erythrocyte distribution width (RBC) [Ratio] 13.4 % Normal 11.8-14.4 [facility] Comment on above: Performed By: #### C DP #### [address] [place], [facility] [employer] Supervisor: Samuel Vazquez MD Hematocrit (Bld) [Volume fraction] 34.0 % Low 36.3-47.1 [facility] Comment on above: Performed By: #### C DP #### [address] [place], [place] [address] [employer] Supervisor: Samuel Vazquez MD Hemoglobin (Bld) [Mass/Vol] 11.2 g/dL Low 11.9-15.1 [facility] Comment on above: Performed By: #### C DP #### [address] [place] [id number] Plant [employer] Supervisor: Samuel Vazquez MD Immature granulocytes (Bld) [#/Vol] 1 % High 0 [facility] Comment on above: Performed By: #### C DP #### [address] [place] [id number] Plant [employer] Supervisor: Samuel Vazquez MD Lymphocytes (Bld) [#/Vol] 2.10 10*3/uL Normal 1.20-5.20 [facility] Comment on above: Performed By: #### C DP #### [facility] [address] [place] [id number] [employer] Supervisor: Samuel Vazquez MD Lymphocytes/100 WBC (Bld) 13 % Low 25-45 [facility] Comment on above: Performed By: #### C DP #### [facility] [address] [place] [id number] [employer] Supervisor: Samuel Vazquez MD MCH (RBC) [Entitic mass] 28.0 pg Normal 25.2-33.5 [facility] Comment on above: Performed By: #### C DP #### [address] [place] [facility]83 Plant [employer] Supervisor: Samuel Vazquez MD MCHC (RBC) [Mass/Vol] 32.9 g/dL Normal 28.4-34.8 [facility] Comment on above: Performed By: #### C DP #### [address] [place], [facility]83 Plant Maintenance Supervisor: Samuel Vazquez MD MCV (RBC) [Entitic vol] 85.0 fL Normal 82.6-102.9 [facility] Comment on above: Performed By: #### C DP #### [address] [place], [facility]83 Plant Maintenance Supervisor: Samuel Vazquez MD Monocytes (Bld) [#/Vol] 0.69 10*3/uL Normal 0.10-1.40 [facility] Comment on above: Performed By: #### C DP #### [address] [place], [place] [id number] Plant [employer] Supervisor: Samuel Vazquez MD Monocytes/100 WBC (Bld) 4 % Normal 2-8 [facility] Comment on above: Performed By: #### C DP #### [facility] [address] [place] [address] Plant [employer] Supervisor: Samuel Vazquez MD Neutrophil (Seg) 81 % High 34-64 [facility] Comment on above: Performed By: #### C DP #### [facility] [address] [place] [facility]83 Plant Maintenance Supervisor: Samuel Vazquez MD NRBC Automated 0.0 per 100 WBC Normal 0.0 [facility] Comment on above: Performed By: #### C DP #### [facility] [address] [place] [facility]83 Plant Maintenance Supervisor: Samuel Vazquez MD Platelet mean volume (Bld) [Entitic vol] 11.0 fL Normal 8.1-13.5 [facility] Comment on above: Performed By: #### C DP #### [facility] [address] [place] [id number] Plant [employer] Supervisor: Samuel Vazquez MD Platelets (Bld) [#/Vol] 238 10*3/uL Normal 138-453 [facility] Comment on above: Performed By: #### C DP #### [facility] [address] [place] [address] Plant Maintenance Supervisor: Samuel Vazquez MD RBC (Bld) [#/Vol] 4.00 10*6/uL Normal 3.95-5.11 [facility] Comment on above: Performed By: #### C DP #### [facility] [address] [place] [id number] Plant [employer] Supervisor: Samuel Vazquez MD WBC (Bld) [#/Vol] 15.6 10*3/uL High 4.5-13.5 [facility] Comment on above: Performed By: #### C DP #### [facility] [address] [place] [address] Plant Maintenance Supervisor: Samuel Vazquez MD Auto Diff Performed NOT REPORTED Normal [facility] Comment on above: Performed By: #### C DP #### [facility] [address] [place] [address] Plant Maintenance Supervisor: Samuel Vazquez MD Platelets (Bld) [#/Vol] NOT REPORTED Normal [facility] Comment on above: Performed By: #### C DP #### [facility] [address] [place] [id number] Plant [employer] Supervisor: Samuel Vazquez MD RBC morphology finding Nom (Bld) NOT REPORTED Normal [facility] Comment on above: Performed By: #### C DP #### [facility] [address] [place] [id number] Plant [employer] Supervisor: Samuel Vazquez MD WBC Morphology NOT REPORTED Normal [facility] Comment on above: Performed By: #### C DP #### [facility] [address] [place] [address] Plant Maintenance Supervisor: Samuel Vazquez MD DRUG SCREEN MULTI URINEon [...] Abuse, Uron 2019 Amphetamine(s),Ur Negative Normal NEG [facility] Comment on above: Performed By: #### D AU #### [facility] [address] [place] [address] Plant Maintenance Supervisor: Samuel Vazquez MD Barbiturate(s),Ur Negative Normal [facility] Comment on above: Performed By: #### D AU #### [facility] [address] [place], [place] [id number] Plant Maintenance Supervisor: Samuel Vazquez MD Base excess Calc (Bld) [Moles/Vol] Negative Normal [facility] Comment on above: Performed By: #### D AU #### [facility] [address] [place], [place] [id number] Plant Maintenance Supervisor: Samuel Vazquez MD Benzodiazepine(s) Negative Normal NE[facility] Comment on above: Performed By: #### D AU #### [facility] [address] [place], [place] [id number] Plant Maintenance Supervisor: Samuel Vazquez MD Buprenorphrine, Ur Negative Normal [facility] Comment on above: Performed By: #### D AU #### [facility] [address] [place], [place] [id number] Plant Maintenance Supervisor: Samuel Vazquez MD Cannabinoid(s),Ur Negative Normal [facility] Comment on above: Performed By: #### D AU #### [facility] [address] [place], [place] [id number] Plant [employer] Supervisor: Samuel Vazquez MD Methadone Ql (U) Negative Normal NEG [facility] Comment on above: Performed By: #### D AU #### [facility] [address] [place], [place] [id number] Plant Maintenance Supervisor: Samuel Vazquez MD Methamphetamine, Ur Negative Normal NEG [facility] Comment on above: Performed By: #### D AU #### [facility] [address] [place], [place] [id number] Plant Maintenance Supervisor: Samuel Vazquez MD Opiate(s), Ur Negative Normal NEG [facility] Comment on above: Performed By: #### D AU #### [facility] [address] [place], [place] [address]83 Plant [employer] Supervisor: Samuel Vazquez MD Oxycodone, Urine Negative Normal NEG [facility] Comment on above: Performed By: #### D AU #### [facility] [address] [place], [place] 0475483 Plant Maintenance Supervisor: Samuel Vazquez MD Phencyclidine, Ur Negative Normal NEG [facility] Comment on above: Performed By: #### D AU #### [facility] [address] [place], [place] [id number] Plant Maintenance Supervisor: Samuel Vazquez MD Propoxyphene,Urine Negative Normal NEG [facility] Comment on above: Performed By: #### D AU #### [facility] [address] [place] [address] Dr[place], [place] [id number] Plant [employer] Supervisor: Samuel Vazquez MD Tricyclic antidepressants Screen Ql (U) Negative [facility] Comment on above: Result Comment: Drug screen results are to be used for medical purposes only. All positive results are unconfirmed. Testing for employment or legal uses should be sent to a reference laboratory for confirmation. Performed By: #### D AU #### [facility] [address] [place], [place] [id number] Plant [employer] Supervisor: Samuel Vazquez MD Interpretive Info NOT REPORTED Normal [facility] Comment on above: Performed By: #### D AU #### [facility] [address] [place], [place] [id number] Plant [employer] Supervisor: Samuel Vazquez MD MDMA, Urine NOT REPORTED Normal NEG [facility] Comment on above: Performed By: #### D AU #### [facility] [address] [place] [address] Plant Maintenance Supervisor: Samuel Vazquez MD GBS, External Resulton 12-21 GBS, External Result Negative [facility], [place] Verified with eli moctezuma rn [facility] [place] ABO, External Resulton 06-21 ABO, External Result O [facility] [place] C. Trachomatis, External Res ulton 06-22-2019 C. Trachomatis, External Result Negative [facility] [place] HIV, External Resulton 06-21 HIV, External Result Negative [facility] Hepatitis B, External Result on 06-22-2019 Hep B, External Result Negative [place], [place] N. Gonorrhoeae, External Res ulton 06-22-2019 N. Gonorrhoeae, External Result Negative [facility] [place] Otheron 06-22-2019 Verified with eli moctezuma rn [place] RPR, External Labon 06-22-19 20 RPR, External Result nonreactive [place], [place] Rh Factor, External Resulton 06-22-2019 Rh Factor, External Result Positive [place], [place] Rubella Titer, External Resu lton 06-22-2019 Rubella Titer, External Result immune [place] Vital Signs Date Time Vital Sign Value Performing Clinician Facility 04-25-2024 15:18-0400 Body mass index (BMI) [Ratio] 30.46 kg/m2 Pino Higgins MD Work Phone: [facility] 04-25-2024 15:18-0400 Body weight 66.68 kg Pino Higgins MD Work Phone: [facility] 04-25-2024 15:18-0400 Diastolic blood pressure 70 mm[Hg] Pino Higgins MD Work Phone: [facility] 04-25-2024 15:18-0400 Systolic blood pressure 120 mm[Hg] Pino Higgins MD Work Phone: [facility] 04-18-2024 13:30-0500 Body mass index (BMI) [Ratio] 31.08 kg/m2 Bladimir Floro CNM Work Phone: [facility] 04-18-2024 13:30-0500 Body weight 68.04 kg Bladimir Floro CNM Work Phone: [facility] 04-18-2024 13:30-0500 Diastolic blood pressure 80 mm[Hg] Bladimir Floro CNM Work Phone: [facility] 04-18-2024 13:30-0500 Systolic blood pressure 120 mm[Hg] Bladimir Floro CNM Work Phone: [facility] 04-06-2024 16:37-0500 Body mass index (BMI) [Ratio] 30.05 kg/m2 Bladimir Floro CNM Work Phone: [facility] 04-06-2024 16:37-0500 Body weight 65.77 kg Bladimir Floro CNM Work Phone: [facility] 04-06-2024 16:37-0500 Diastolic blood pressure 60 mm[Hg] Bladimir Floro CNM Work Phone: [facility] 04-06-2024 16:37-0500 Systolic blood pressure 120 mm[Hg] Bladimir Floro CNM Work Phone: [facility] 03-30-2024 08:43-0500 Body mass index (BMI) [Ratio] 29.63 kg/m2 Bladimir Floro CNM Work Phone: [facility] 03-30-2024 08:43-0500 Body weight 64.86 kg Bladimir Floro CNM Work Phone: [facility] 03-30-2024 08:43-0500 Diastolic blood pressure 60 mm[Hg] Bladimir Floro CNM Work Phone: [facility] 03-30-2024 08:43-0500 Systolic blood pressure 100 mm[Hg] Bladimir Floro CNM Work Phone: [facility] 03-24-2024 09:36-0500 Body mass index (BMI) [Ratio] 29.22 kg/m2 Bladimir Floro CNM Work Phone: [facility] 03-24-2024 09:36-0500 Body weight 63.96 kg Bladimir Floro CNM Work Phone: [facility] 03-24-2024 09:36-0500 Diastolic blood pressure 70 mm[Hg] Bladimir Floro CNM Work Phone: [facility] 03-24-2024 09:36-0500 Systolic blood pressure 114 mm[Hg] Bladimir Floro CNM Work Phone: [facility] 03-09-2024 09:32-0500 Body mass index (BMI) [Ratio] 29.01 kg/m2 Bladimir Floro CNM Work Phone: [facility] 03-09-2024 09:32-0500 Body weight 63.5 kg Bladimir Floro CNM Work Phone: [facility] 03-09-2024 09:32-0500 Diastolic blood pressure 60 mm[Hg] Bladimir Floro CNM Work Phone: [facility] 03-09-2024 09:32-0500 Systolic blood pressure 110 mm[Hg] Bladimir Floro CNM Work Phone: [facility] 02-25-2024 11:34-0500 Body mass index (BMI) [Ratio] 28.18 kg/m2 Blaidmir Floro CNM Work Phone: [facility] 02-25-2024 11:34-0500 Body weight 61.69 kg Bladimir Floro CNM Work Phone: [facility] 02-25-2024 11:34-0500 Diastolic blood pressure 60 mm[Hg] Bladimir Floro CNM Work Phone: [facility] 02-25-2024 11:34-0500 Systolic blood pressure 110 mm[Hg] Bladimir Floro CNM Work Phone: [facility] 02-04-2024 09:03-0500 Body mass index (BMI) [Ratio] 26.52 kg/m2 Bladimir Floro CNM Work Phone: [facility] 02-04-2024 09:03-0500 Body weight 58.06 kg Bladimir Floro CNM Work Phone: [facility] 02-04-2024 09:03-0500 Diastolic blood pressure 78 mm[Hg] Bladimir Floro CNM Work Phone: [facility] 02-04-2024 09:03-0500 Systolic blood pressure 120 mm[Hg] Bladimir Floro CNM Work Phone: [facility] 01-07-2024 09:53-0500 Body mass index (BMI) [Ratio] 25.28 kg/m2 Bladimir Floro CNM Work Phone: [facility] 01-07-2024 09:53-0500 Body weight 55.34 kg Bladimir Floro CNM Work Phone: [facility] 01-07-2024 09:53-0500 Diastolic blood pressure 60 mm[Hg] Bladimir Floro CNM Work Phone: [facility] 01-07-2024 09:53-0500 Systolic blood pressure 100 mm[Hg] Bladimir Floro CNM Work Phone: [facility] 12-09-2023 10:40-0400 Body mass index (BMI) [Ratio] 24.66 kg/m2 Bladimir Floro CNM Work Phone: [facility] 12-09-2023 10:40-0400 Body weight 53.98 kg Bladimir Floro CNM Work Phone: [facility] 12-09-2023 10:40-0400 Diastolic blood pressure 60 mm[Hg] Bladimir Floro CNM Work Phone: [facility] 12-09-2023 10:40-0400 Systolic blood pressure 100 mm[Hg] Bladimir Floro CNM Work Phone: [facility] 11-11-2023 10:37-0400 Body mass index (BMI) [Ratio] 24.45 kg/m2 Bladimir Laurelo CNM Work Phone: [facility] 11-11-2023 10:37-0400 Body weight 53.52 kg Bladimir Laurelo CNM Work Phone: [facility] 11-11-2023 10:37-0400 Diastolic blood pressure 50 mm[Hg] Bladimir Laurelo CNM Work Phone: [facility] 11-11-2023 10:37-0400 Systolic blood pressure 90 mm[Hg] Bladimir Laurelo CNM Work Phone: [facility] 10-14-2023 10:09-0400 Body mass index (BMI) [Ratio] 23 kg/m2 Bladimir Laurelo CNM Work Phone: [facility] 10-14-2023 10:09-0400 Body weight 50.35 kg Bladimir Lucaso CNM Work Phone: [facility] 10-14-2023 10:09-0400 Diastolic blood pressure 70 mm[Hg] Bladimir Laurelo CNM Work Phone: [facility] 10-14-2023 10:09-0400 Systolic blood pressure 110 mm[Hg] Bladimir Laurelo CNM Work Phone: [facility] 09-17-2023 10:04-0400 Body mass index (BMI) [Ratio] 23.21 kg/m2 Bladimir Laurelo CNM Work Phone: [facility] 09-17-2023 10:04-0400 Body weight 50.8 kg Bladimir Laurelo CNM Work Phone: [facility] 01-19-2020 08:10-0500 Body Temperature 97.81 [degF] [facility] [place] 01-19-2020 08:10-0500 BP Diastolic 72 mm[Hg] [facility] [place] [facility] [place] 01-19-2020 08:10-0500 BP Systolic 122 mm[Hg] [facility] [place] 01-19-2020 08:10-0500 Pulse (Heart Rate) 72 /min Bladimir [facility], [place] 01-19-2020 08:10-0500 Respiratory Rate 16 /[facility] [place] 01-17-2020 14:39-0500 Pulse Oximetry 99 % [facility] , [place] 01-17-2020 07:54-0500 BMI (Body Mass Index) 30.9 kg/m2 [facility] [place] 01-17-2020 07:54-0500 Body weight 64.77 [facility] [place] 01-17-2020 07:54-0500 Height 144.8 [place] Encounters Encounter Date Encounter Type Care Provider Facility Start: 04-25-2024 End: 04-25-2024 ambulatory PINO HIGGINS Not Available Start: 04-25-2024 End: 04-25-2024 Office outpatient visit 25 minutes Pino Higgins MD Work Phone: [facility] Comment on above: Supervision of vesna [...] Evaluation and management of inpatient BLADIMIR ONEAL [facility] Start: 01-17-2020 End: 01-19-2020 Evaluation and [...] ULTRASOUND [address] [place] [address] Large for dates [facility] [...] AM EST Routine [facility] [address] [facility] [place] [id number] Bladimir Oneal, CNM [address] [place] [address] [facility] Start: 04-06-2024 End: 04-06-2024 Patient encounter procedure 04/06/2024 8:30 AM EST Routine [facility] [address] [place] [place] [id number] Bladimir Oneal, CNM [address] [place] [address] [facility] Start: 03-30-2024 End: 03-30-2025 STREPTOCCOUS, GROUP B CULTURE STREPTOCCOUS, GROUP B CULTURE Lab Routine screening for streptococcus B Expected: 03/30/2024 (Approximate), Expires: 03/30/2025 [facility] Work Phone: Comment on above: Expected: 03/30/2024 (Approximate), Expires: 03/30/2025 Start: 03-30-2024 End: 03-30-2024 Patient encounter procedure 03/30/2024 8:30 AM EST Routine [facility] [address] [place] [place] [phone] Bladimir Oneal, CNM [address] [place] [address] [facility] Start: 03-24-2024 End: 03-24-2024 Patient encounter procedure 03/24/2024 9:30 AM EST Routine [facility] [address] [facility] [place] [phone] Bladimir Oneal, CNM [address] [place] [address] [facility] Start: 03-09-2024 End: 03-09-2024 Patient encounter procedure 03/09/2024 9:30 AM EST Routine [facility] [address] [place] [phone] Bladimir Oneal, CNM [address] [place] [address] [facility] Start: 02-25-2024 End: 02-25-2024 Patient encounter procedure 02/25/2024 11:30 AM EST Routine [facility] [address] [place] [phone] Bladimir Oneal, CNM [address] [place] [address] Arrived [facility] Comment on above: Arrived Start: 02-04-2024 End: 02-03-2025 CBC panel - Blood by Automated count CBC Lab Routine Screening for iron deficiency anemia Expected: 02/04/2024 (Approximate), Expires: 02/03/2025 [facility] Healthcare Comment on above: Expected: 02/04/2024 [...] AM EST Routine [facility] [address] [place] [phone] Bladimir Oneal, CNM [address] [place] [address] [facility] Start: 12-09-2023 End: 12-09-2023 Patient encounter procedure [facility] Comment on above: Arrived Start: 12-09-2023 End: 12-09-2023 Professional / ancillary services management 12/09/2023 9:45 AM EDT Ancillary Procedure [facility] [address] [place] [phone] [facility] Start: 11-11-2023 End: 11-10-2024 [...] positive result Expected: 09/17/2023 (Approximate), Expires: 09/16/2024 [facility] Healthcare Comment on above: Expected: 09/17/2023 (Approximate), [...] positive result Expected: 09/17/2023 (Approximate), Expires: 09/16/2024 [facility] Comment on above: Expected: 09/17/2023 (Approximate), Expires: 09/16/2024 Start: 09-17-2023 End: 09-16-2024 TSH W/REFLEX TO FT4 TSH W/REFLEX TO FT4 Lab Routine examination or test, positive result Expected: 09/17/2023 (Approximate), Expires: 09/16/2024 [facility] Comment on above: Expected: 09/17/2023 (Approximate), Expires: 09/16/2024 Start: 09-17-2023 End: 09-16-2024 URINALYSIS MICROSCOPIC URINALYSIS MICROSCOPIC Lab Routine examination or test, positive result Expected: 09/17/2023 (Approximate), Expires: 09/16/2024 [facility] Comment on above: Expected: 09/17/2023 (Approximate), Expires: 09/16/2024 Start: 10-18-2019 Influenza vaccination Flu vaccine (# 1) [place], [place] Start: 02-17-2019 DTaP/Tdap/Td vaccine (1 - Tdap) DTaP/Tdap/Td vaccine (1 - Tdap) [place], [place] Start: 2016 Screening for Chlamy javi trachomatis Chlamydia screen [place], [place] Start: 02-17-2015 HIV screening HIV screen [place], [place] Start: 02-17-2011 HPV vaccine (1 - 2-d ose series) HPV vaccine (1 - 2-dose series) [place], [place] Start: 02-17-2001 Varicella vaccine (1 of 2 - 2-dose childhood series) Varicella vaccine (1 of 2 - 2-dose childhood series) [place], [place] ABO/Rh ABO/Rh Lab Routi ne examination or test, positive result Ordered: 09/17/2023 [facility] Comment on above: Ordered: 09/17/2023 Antibody screen Antibody screen Lab Routine examination or test, positive result Ordered: 09/17/2023 [facility] Comment on above: Ordered: 09/17/2023 CBC panel - Blood by Automated count CBC Lab Routine examination or test, positive result Ordered: 09/17/2023 [facility] Comment on above: Ordered: 09/17/2023 Hemoglobin A1c/Hemoglobin.total in Blood Hemoglobin A1c Lab Routine examination or test, positive result Ordered: 09/17/2023 [facility] Comment on above: Ordered: 09/17/2023 Hepatitis B virus surface Ag [Presence] in Serum or Plasma by Immunoassay Hepatitis B surface antigen Lab Routine examination or test, positive result Ordered: 09/17/2023 [facility] Work Phone: Comment on above: Ordered: 09/17/2023 Hepatitis C virus Ab [Presence] in Serum or Plasma by Immunoassay Hepatitis C antibody Lab Routine examination or test, positive result Ordered: 09/17/2023 [facility] Comment on above: Ordered: 09/17/2023 HIV-1/HIV-2 antigen/antibody combination immunoassay HIV-1 and HIV-2 antibodies Lab Routine examination or test, positive result Ordered: 09/17/2023 [facility] Comment on above: Ordered: 09/17/2023 Reagin Ab [Presence] in Serum by RPR RPR Lab Routine examination or test, positive result Ordered: 09/17/2023 [facility] Comment on above: Ordered: 09/17/2023 Rubella antibody, IgG Rubella an tibody, IgG Lab Routine examination or test, positive result Ordered: 09/17/2023 [facility] Comment on above: Ordered: 09/17/2023 Immunizations Immunization Date Immunization Notes Care Provider Nafisa valles 01-17-2020 diphtheria, tetanus toxoids and acellular pertussis vaccine, unspecified formulation [facility] , [place] 01-17-2020 measles, mumps and r ubella virus vaccine [facility], [place] Payers Date Payer Category Payer Medicaid (Managed Care) [employer] [id number] 2022 Blue Cross Blue Shield BCBS [id number] 2022 Unknown BCBS BCBS [id number] [id number] 2022-Present [phone] [address] [place] [address] [id number] 2022 Unknown [id number] 2000 Unknown [id number] 2.16.840.1.573922.3.579.2. 173 2000 Unknown [id number] 2.16.840.1.355161.3.579.2. 593 2000 Unknown [id number] 2.16.840.1.295114.3.579.2. 1259 2000 Unknown [id number] 2.16.840.1.099150.3.579.2. 1259 2000 Unknown [id number] 2.16.840.1.840376.3.579.2. 1259 2000 Unknown [id number] 2.16.840.1.332138.3.579.2. 1259 2000 Unknown [id number] 2.16.840.1.153237.3.579.2. 9 2000 Unknown [id number] 2.16.840.1.797215.3.579.2. 9 2000 Unknown [id number] 2.16.840.1.054920.3.579.2. 1258 2000 Unknown [id number] 2.16.840.1.304214.3.579.2. 9 2000 Unknown [id number] 2.16.840.1.794318.3.579.2. 1258 2000 Unknown [id number] 2.16.840.1.717926.3.579.2. 9 2000 Unknown [id number] 2.16.840.1.775423.3.579.2. 1258 2000 Unknown [id number] 2.16.840.1.617331.3.579.2. 9 2000 Unknown [id number] 2.16.840.1.366679.3.579.2. 9 2000 Unknown [id number] 2.16.840.1.448614.3.579.2. 9 1959 Unknown [id number] 1.2.840.127226.1.13.239.2. 7.3.124230.315 Social History Date Type Detail Facility Start: 01-17-2020 [facility] Start: 01-17-2020 End: 09-17-2023 Cigarettes smoked current (pack per day) - [facility] Start: 01-17-2020 End: 03-03-2023 Tobacco use and exposure [facility] Start: 01-17-2020 End: 09-17-2023 Alcohol intake [facility] (finding[facility] Start: 2000 Sex Assigned At Not on file M [facility] [place] Exposure to SARS-CoV -2 (event) Not sure [facility] Start: 03-03-2023 Tobacco smoking stat [facility] Tobacco smoking consumption unknown [facility] Healthcare Start: 03-03-2023 End: 09-17-2023 Tobacco use panel [facility] Start: 03-03-2023 Tobacco Comment *Current smoke r, frequency unknownSmokes 5 or less cigarettes a day [facility] Start: 08-04-2023 [facility] Clinical Notes 09-17-2023 to 04-25-2024 Pino Higgins MD - 04/25/2024 3:15 PM EDSHRAVAN Yi - 04/18/2024 1:30 PM Sonya Barclay MA - 04/06/2024 4:30 PM Allison Oneal CNM - 03/30/2024 8:30 AM EST Note Date & Type Note Facility 04-25-2024 History of Presen t illness Narrative Labor cautions documented in this encounter [facility] 04-18-2024 History of Presen t illness Narrative [...] a routine visit. documented in this encounter [facility] 04-06-2024 History of Presen t illness Narrative [...] a routine visit. documented in this encounter [facility] 03-30-2024 History of Presen t illness Narrative [...] a routine visit. documented in this encounter [facility] 03-24-2024 History of Presen t illness Narrative [...] a routine visit. documented in this encounter [facility] 03-09-2024 History of Presen t illness Narrative [...] a routine visit. documented in this encounter [facility] 02-25-2024 History of Presen t illness Narrative [...] a routine visit. documented in this encounter [facility] 02-04-2024 History of Presen t illness Narrative [...] Labs: reviewed Imaging Will send order to [facility] for 2 weeks for 30 week [...] a routine visit. documented in this encounter [facility] 01-07-2024 History of Presen t illness Narrative [...] a routine visit. documented in this encounter [facility] 12-09-2023 History of Presen t illness Narrative [...] a routine visit. documented in this encounter [facility] 11-11-2023 History of Presen t illness Narrative [...] a routine visit. documented in this encounter [facility] 10-14-2023 History of Presen t illness Narrative [...] a routine visit. documented in this encounter [facility] 09-17-2023 History of Presen t illness Narrative [...] also given office phone number and [facility] number to call in case of an emergency or after hours needs. PVU and all questions answered. We did discuss place of delivery. Patient should plan to go to [facility] for all services unless an emergency and they need to go to the closest ER. We can make other arrangements possibly if patient would like to deliver at another facility but I did explain I am now at [facility] 100% of the time and would like to do all deliveries there. documented in this encounter [facility] Evaluation note Diagnosis Encounter for supervision of other normal , second trimester- Primary Marijuana use documented in this encounter [facility] HealthcareEvaluation note* Diagnosis examination or test, positive result- Primary [facility] Diagnosis Encounter for supervision of other normal , first trimester- Primary examination or test, positive result Marijuana use documented in this encounter [facility] HealthcareEvaluation note* Diagnosis Encounter for supervision of other normal , second trimester- Primary related condition in second trimester [facility] Diagnosis Encounter for supervision of other normal , second trimester- Primary Screening for diabetes mellitus Screening for iron deficiency anemia [facility] Diagnosis Encounter for supervision of other normal , third trimester- Primary [facility] Diagnosis Encounter for supervision of other normal , third trimester- Primary Marijuana use documented in this encounter [facility] HealthcareEvaluation note* Diagnosis Encounter for supervision of other normal , third trimester- Primary screening for streptococcus B screening for Streptococcus B [facility] Diagnosis Encounter for supervision of other normal , third trimester- Primary Marijuana use Large for dates [facility] Diagnosis Encounter for supervision of other normal , third trimester- Primary Large for dates Marijuana use Large for dates [facility] Diagnosis Supervision of normal intrauterine in multigravida, third trimester- Primary 39 weeks gestation of documented in this encounter [facility] Course * Vilma Orantes APRN - [...] # 2.10 1.20 - 5.20 k/uL Absolute [employer] # 0.69 0.10 - 1.40 k/uL Absolute [...] Discharge Medication: Attila Tesfaye Home Medication Instructions [id number] Printed on:01/19/20 0700 Medication Information [id number] PO Take 1 tablet by mouth daily Admit date: 01/17/2020 7:31 AM Discharge Date: 01/19/2020 Discharged to: Home in stable condition Plan: Follow up with Hannah Oneal CNM in 2 weeks documented in this encounter Discharge Instructions * Instructions* Natasha Graf RN - 01/19/2020 Follow-up with your OB doctor as specified. [facility] OB Department phone: Dr. Rey Vaz [facility] Dr. Bharat Whitman [facility] [address] [facility] [address] [facility] [address] [place] [address] Bharat Erickson [facility] [address] [facility] [id number] [phone] Hannah Oneal, MSN, MILITARY TECHNOLOGY MANAGER, CNM [facility] [address] [facility] [address] [address] [facility] [address] [facility] [address] Vilma Orantes CN [address] [place], [place] [id number] Aye Melendez CN [address] [place] [address] [place] [address] [phone] DIET Eat a well balanced diet focusing on foods high in fiber and protein. Drink plenty of fluids especially water. To avoid constipation you may take a mild stool softener as recommended by your doctor or security officer. ACTIVITY Gradually increase your activity. Resume exercise regimen only after advice by your doctor or security officer. Avoid lifting anything heavier than a gallon of milk for SIX weeks. Avoid driving until your doctor or security officer has given their approval. Rise slowly from [...] medications as recommended by your doctor or security officer for pain If you develop a warm, [...] vitamins as directed by your doctor or security officer. Refer to the booklet in the folder/binder for more information. If you feel you need more assistance or have questions, please call Yojana Chase IBCLC, senior management consultant, at or the OB department to [...] cannot be sent through Care Everywhere. * ([place]) * OB CORONAVIRUS (COVID-19): , AND BABY CARE DISCHARGE INSTRUCTIONS documented in this encounter History of Present Illness * Yojana Chase IBCLC - 01/19/2020 10:50 AM EST note: [] Feeding observed, see flowsheet. [x] Patient states is going well: no complaints. Denies questions or concerns. [] Patient has questions/concerns. [x] Verbalizes understanding, advised to follow up with senior management consultant if necessary. * Yojana Chase IBCLC [...] Preventing Engorgement - Medela Supplies given: [] [place], soap and basin for breastpump cleaning [] [...] rate: Baseline Heart Rate: 135 Accelerations: present Picking Table Worker Variability: moderate Decelerations: absent Contraction frequency: 1-2 [...] rate: Baseline Heart Rate: 140 Accelerations: present Snf Variability: moderate Decelerations: absent Contraction frequency: 1-2 [...] Diagnoses examination or test, positive result Procedures [place] OFFICE/OUTPATIENT NEW HIGH MDM 60 MINUTES Bladimir Oneal CNM [address] [facility] [place] [address] Bladimir Oneal CNM [address] [place] [address] Referral ID Status Reason Start Date Expiration Date Visits Requested Visits Authorized [id number] Pending Review Specialty Services Required 10/08/2023 04/05/2024 1 1 Additional Source Comments Reason for Visit (unrecogniz ed section and content) Reason Comments Laboring Status Reason Specialty Diagnoses / Procedures Referre d By Contact Referred To Contact Diagnoses Term Bladimir Oneal APRN - CNM [address] [place] [address] [facility] Specialty Diagnoses / Procedures Referred By Parisa adhikari Referred To Contact Obstetrics and Gynecology Diagnoses examination or test, positive result Procedures [place] OFFICE/OUTPATIENT NEW HIGH MDM 60 MINUTES Bladimir Oneal, CNM [address] [place] [address] Bladimir Oneal, CNM [address] [place] [address] Referral ID Status Reason Start Date Expiration Date V isits Requested Visits Authorized [id number] Closed Specialty Services Required 10/08/2023 04/05/2024 1 1 INFORMATION SOURCE (unrecogn ized section and content) DATE CREATED AUTHOR 01/19/2020 [facility] DATE CREATED AUTHOR AUTHOR'S ORGANIZ ATION 03/02/2021 [facility] DATE CREATED AUTHOR AUTHOR'S ORGANIZ ATION 04/27/2024 [facility] dical Specialists EPIC Care Teams (unrecognized sec tion and content) Research Compliance Specialist Relationship Specialty Start Date End Date Mounika Arroyo MD [address] [place] [address] PCP - General Family Medicine 06/24/22 Research Compliance Specialist Relationship Specialty Start Date End Date Mounika Arroyo MD [address] [facility] [place] [address] PCP - General Family Medicine 06/24/22 Research Compliance Specialist Relationship Specialty Start Date End Date Mounika Arroyo MD [address] [facility] [place] [address] PCP - General Family Medicine 06/24/22 Research Compliance Specialist Relationship Specialty Start Date End Date Mounika Arroyo MD [address] [facility] [place] [address] PCP - General Family Medicine 06/24/22 Research Compliance Specialist Relationship Specialty Start Date End Date Mounika Arroyo MD [address] [facility] [place] [address] PCP - General Family Medicine 06/24/22 Research Compliance Specialist Relationship Specialty Start Date End Date Mounika Arroyo MD [address] [facility] [place] [address] PCP - General Family Medicine 06/24/22 Research Compliance Specialist Relationship Specialty Start Date End Date Mounika Arroyo MD [address] [facility] [place] [address] PCP - General Family Medicine 06/24/22 Research Compliance Specialist Relationship Specialty Start Date End Date Mounika Arroyo MD [address] [facility] [place] [address] PCP - General Family Medicine 06/24/22 Research Compliance Specialist Relationship Specialty Start Date End Date Mounika Arroyo MD [address] [facility] [place] [address] PCP - General Family Medicine 06/24/22 Research Compliance Specialist Relationship Specialty Start Date End Date Mounika Arroyo MD [address] [facility] [place] [address] PCP - General Family Medicine 06/24/22 FOR [...] BE BASED ON THE PRIMARY CLINICAL RECORDS. [facility] [address] [facility]. provides no warranty or guarantee of the accuracy or completeness of information in this document.
== END 2024-05-03 15:45 | disposition home or self-care (01) ==
LOC: US 14:17 → FBC 14:20
PROVIDERS: Visit Provider Midwife
DX: O26.893 Other specified pregnancy related conditions, third trimester (principal); O48.0 Post-term pregnancy
CPT/HCPCS: 76818

== ENCOUNTER 2024-05-05 05:02 | Inpatient (IN) | payer BC, OTHER, SELFPAY ==
[2024-05-05] VITALS (98 sets, daily range): BP systolic 87–142; BP diastolic 37–91; PULSE 52–133; TEMP 35.8–37.1; O2SAT 94–97
--- OUTSIDE RECORDS SUMMARY | 2024-05-05 05:09 | XMS_ITS | CCD ---
Author Organization [facility] Care Team Providers Care Incubator Machine Operator Name Role Phone Unavailable Primary Care Provider Unavailkevin e BLADIMIR ONEAL Admitting Unavailable IGNACIO, BLADIMIR Attending Unavailable MISC, DR BARTON Primary Care Unavailable ANTHONY, DR MOORE Attending Unavailable ANTHONY, DR MOORE Consulting Unavailable ATNHONY, DR MOORE Admitting Unavailable Dina WILLIAMSON, [facility] Primary Care Provider [phone] BLADIMIR ONEAL Attending Unavailable FLORO, BLADIMIR Norbert Attending Unavailable FLORO, BLADIMIR L Attending Unavailable FLORO, BLADIMIR L Attending Unavailable FLORO, BLADIMIR L Attending Unavailable FLORO, BLADIMIR L Referring Unavailable PINO HIGGINS Attending Unavailable FLORO, BLADIMIR L Referring Unavailable [...] 01-17-2020 ondansetron (ZOFRAN-ODT) disintegrating tablet 8 mg WCKHBM-L0-R7-B12-D3- FA PO (1 source) take 1 tablet by mouth once daily IMRCJB-B3-A5-B12-D3 -FA PO Take 1 tablet by mouth daily 0 Active Hzlatgtl-Iyy-Uk-FA ( 1 + IRON PO) (20 sources) Qcaaflvr-Jrl-Sy-FA ( 1 + IRON PO) Take by [...] trimester] 11-11-2023 Episodic Other conditions (2 sources) Ukosg-sfd-ounrb at regardless of gestation period; Translations: [Other [...] Test Name Value Interpretation Reference Range Facility US OB FOLLOW UP TRANSABDOMIN AL APPROACHon 05-02-2024 US OB FOLLOW UP TRANSABDOMINAL APPROACH EXAM: US OB FOLLOW UP TRANSABDOMINAL APPROACH HISTORY: Past due date. COMPARISON: Ob ultrasound 04/18/2024. TECHNIQUE: Two-dimensional transabdominal grayscale ultrasound imaging of the pelvis was performed. FINDINGS: Gestation: Single Presentation: Cephalic Cardiac Activity: 149 beats per minute Placental Location: Anterior with no sonographic abnormalities identified. Cervical canal: Not visualized Amniotic Fluid Index: 9.9 cm MEASUREMENTS: BPD: 9.4 cm EGA: 38 weeks 2 days HC: 34.3 cm EGA: 39 weeks 4 days AC: 35.0 cm EGA: 38 weeks 6 days FL: 7.0 cm EGA: 36 weeks 0 days HC/AC Ratio: 0.98 The gestational age by today's ultrasound is 38 weeks 1 days. Estimated Weight: 3443 grams, ( 7 lb 9 oz). IMPRESSION: 1. Single, live intrauterine gestation 40 weeks, 6 days by LMP. Today's ultrasound measurements correlate with a gestational age of 38 weeks 1 days. Estimated weight is 3443 grams, ( 7 lb 9 oz). JESÚS is 05/15/2024. Electronically Signed:Electronical ly signed by BETSY MOREAU II, MD, PHD at 03-May-2024 12:33:24 AM [facility] Normal Not Available Urinalysis macro (dipstick) panel (U)on 04-25-2024 Glucose, UA Negative Negative - 1999(110) ++++ mg/dL [facility] Protein, UA Trace Negative - 1999(20) ++++ mg/dL Replaced by [facility] US OB FOLLOW UP TRANSABDOMIN AL APPROACHon [...] report is generated using voice recognition reporting (KienVe). On occasion Isabella [employer] erroneously drops words from the report or replaces the spoken word with similar sounding words. Please call with any questions/concerns regarding this report.* Dictated and transcribed 04/18/2024/jf This report has been electronically signed and [...] ovary corpus luteal cyst. Dictated and transcribed 09/18/23/dpd This report has been electronically signed and approved by the interpreting radiologist. Electronically Signed Dimas Tim M.D. 2023-09-18 17:02:36 Normal Not Available Covid-19 PCR ([facility])on 02-16 SARS-CoV-2 (COVID-19) RNA JOHNATHAN+probe Ql (Unsp spec) Detected Critically abnormal NOT DETECTED [facility] Comment on above: Result Comment: This test is not yet approved or cleared by the [place] FDA. When there are no FDA-approved or cleared tests available, and other criteria are met, FDA can make tests available under an emergency access mechanism called an Emergency Use Authorization (EUA). The EUA for this test is supported by the [place] of Health and Human Service's (HHS's) declaration [...] longer be used). Performed By: #### C VDTB #### [facility] [id number] Jim Patrick CBC auto differentialon 12-0 Basophils (Bld) [#/Vol] 0.04 10*3/uL [place] Basophils/100 WBC (Bld) 0 % 0 - 2 % [place] Differential Type NOT REPORTED [place] Eosinophils (Bld) [#/Vol] 0.08 10*3/uL [place] Eosinophils/100 WBC (Bld) 1 % 1 - 4 % [place] Erythrocyte distribution width (RBC) [Ratio] 13.4 % 11.8 - 14.4 % [place] Hematocrit (Bld) [Volume fraction] 34.0 % Low 36.3 - 47.1 % [place] Hemoglobin (Bld) [Mass/Vol] 11.2 g/dL Low 11.9 - 15.1 g/dL [place] Immature granulocytes (Bld) [#/Vol] 1 % High 0 [place] Immature granulocytes (Bld) [#/Vol] 0.09 10*3/uL [place] Interpretation and review of laboratory results Abnormal [place] Lymphocytes (Bld) [#/Vol] 2.10 10*3/uL [place] Lymphocytes/100 WBC (Bld) 13 % Low 25 - 45 % [place] MCH (RBC) [Entitic mass] 28.0 pg 25.2 - 33.5 pg [place] MCHC (RBC) [Mass/Vol] 32.9 g/dL 28.4 - 34.8 g/dL [place] MCV (RBC) [Entitic vol] 85.0 fL 82.6 - 102.9 fL [place] Monocytes (Bld) [#/Vol] 0.69 10*3/uL [place] Monocytes/100 WBC (Bld) 4 % 2 - 8 % [place] Platelet mean volume (Bld) [Entitic vol] 11.0 fL 8.1 - 13.5 fL [place] Platelets (Bld) [#/Vol] 238 10*3/uL [place] Platelets (Bld) [#/Vol] NOT REPORTED [place] RBC (Bld) [#/Vol] 4.00 10*6/uL 3.95 - 5.1 1 m/uL [place] RBC morphology finding Nom (Bld) NOT REPORTED [place] Segmented neutrophils/100 WBC (Bld) 81 % High 34 - 64 % [place] Segs Absolute 12.64 High [place] WBC (Bld) [#/Vol] 0.0 10*3/uL 0.0 per 10 0 WBC [place] WBC (Bld) [#/Vol] 15.6 10*3/uL [place] WBC Morphology NOT REPORTED [place], [place] CBC with Diffon 01-17-2020 Abs. Basophil 0.04 k/uL Normal 0.00-0.20 [facility] Comment on above: Performed By: #### C DP #### [facility] [address] [place] [address] [place] [address] Animal Treatment Investigator: Samuel Vazquez MD Abs.Imm.Granulocyte 0.09 k/uL Normal 0.00-0.30 [facility] Comment on above: Performed By: #### C DP #### [address] [place] [address] Animal Treatment Investigator: Samuel Vazquez MD Abs.Neutrophil (Seg) 12.64 k/uL High 1.80-8.00 [facility] Comment on above: Performed By: #### C DP #### [address] [place] [id number] Animal Treatment Investigator: Samuel Vazquez MD Basophils/100 WBC (Bld) 0 % Normal 0-2 [facility] Comment on above: Performed By: #### C DP #### [address] [place], [facility] Animal Treatment Investigator: Samuel Vazquez MD Eosinophils (Bld) [#/Vol] 0.08 10*3/uL Normal 0.00-0.44 [facility] Comment on above: Performed By: #### C DP #### [address] [place] [address] Animal Treatment Investigator: Samuel Vazquez MD Eosinophils/100 WBC (Bld) 1 % Normal 1-4 [facility] Comment on above: Performed By: #### C DP #### [facility] [address] [place] [id number] Animal Treatment Investigator: Samuel Vazquez MD Erythrocyte distribution width (RBC) [Ratio] 13.4 % Normal 11.8-14.4 [facility] Comment on above: Performed By: #### C DP #### [facility] [address] [place] [facility] Animal Treatment Investigator: Samuel Vazquez MD Hematocrit (Bld) [Volume fraction] 34.0 % Low 36.3-47.1 [facility] Comment on above: Performed By: #### C DP #### [facility] [address] [place] [facility] Animal Treatment Investigator: Samuel Vazquez MD Hemoglobin (Bld) [Mass/Vol] 11.2 g/dL Low 11.9-15.1 [facility] Comment on above: Performed By: #### C DP #### [facility] [address] [place] [facility] Animal Treatment Investigator: Samuel Vazquez MD Immature granulocytes (Bld) [#/Vol] 1 % High 0 [facility] Comment on above: Performed By: #### C DP #### [facility] [address] [place] [facility] Animal Treatment Investigator: Samuel Vazquez MD Lymphocytes (Bld) [#/Vol] 2.10 10*3/uL Normal 1.20-5.20 [facility] Comment on above: Performed By: #### C DP #### [facility] [address] [place] [facility] Animal Treatment Investigator: Samuel Vazquez MD Lymphocytes/100 WBC (Bld) 13 % Low 25-45 [facility] Comment on above: Performed By: #### C DP #### [facility] [address] [place] [address] Animal Treatment Investigator: Samuel Vazquez MD MCH (RBC) [Entitic mass] 28.0 pg Normal 25.2-33.5 [facility] Comment on above: Performed By: #### C DP #### [facility] [address] [place] [id number] Animal Treatment Investigator: Samuel Vazquez MD MCHC (RBC) [Mass/Vol] 32.9 g/dL Normal 28.4-34.8 [facility] Comment on above: Performed By: #### C DP #### [facility] [address] [place] [facility] Animal Treatment Investigator: Samuel Vazquez MD MCV (RBC) [Entitic vol] 85.0 fL Normal 82.6-102.9 [facility] Comment on above: Performed By: #### C DP #### [facility] [address] [place] [facility] Animal Treatment Investigator: Samuel Vazquez MD Monocytes (Bld) [#/Vol] 0.69 10*3/uL Normal 0.10-1.40 [facility] Comment on above: Performed By: #### C DP #### [facility] [address] [place] [id number] Animal Treatment Investigator: Samuel Vazquez MD Monocytes/100 WBC (Bld) 4 % Normal 2-8 [facility] Comment on above: Performed By: #### C DP #### [facility] [address] [place] [facility] Animal Treatment Investigator: Samuel Vazquez MD Neutrophil (Seg) 81 % High 34-64 [facility] Comment on above: Performed By: #### C DP #### [facility] [address] [place] [address] Animal Treatment Investigator: Samuel Vazquez MD NRBC Automated 0.0 per 100 WBC Normal 0.0 [facility] Comment on above: Performed By: #### C DP #### [facility] [address] [place] [address] Animal Treatment Investigator: Samuel Vazquez MD Platelet mean volume (Bld) [Entitic vol] 11.0 fL Normal 8.1-13.5 [facility] Comment on above: Performed By: #### C DP #### [facility] [address] [place], [place] [id number] Animal Treatment Investigator: Samuel Vazquez MD Platelets (Bld) [#/Vol] 238 10*3/uL Normal 138-453 [facility] Comment on above: Performed By: #### C DP #### [facility] [address] [place] [address] Animal Treatment Investigator: Samuel Vazquez MD RBC (Bld) [#/Vol] 4.00 10*6/uL Normal 3.95-5.11 [facility] Comment on above: Performed By: #### C DP #### [facility] [address] [place] [address] Animal Treatment Investigator: Samuel Vazquez MD WBC (Bld) [#/Vol] 15.6 10*3/uL High 4.5-13.5 [facility] Comment on above: Performed By: #### C DP #### [facility] [address] [place], [place] [id number] Animal Treatment Investigator: Samuel Vazquez MD Auto Diff Performed NOT REPORTED Normal [facility] Comment on above: Performed By: #### C DP #### [facility] [address] [place] [address] Animal Treatment Investigator: Samuel Vazquez MD Platelets (Bld) [#/Vol] NOT REPORTED Normal [facility] Comment on above: Performed By: #### C DP #### [facility] [address] [place] [address] Animal Treatment Investigator: Samuel Vazquez MD RBC morphology finding Nom (Bld) NOT REPORTED Normal [facility] Comment on above: Performed By: #### C DP #### [facility] [address] [place] [address] Animal Treatment Investigator: Samuel Vazquez MD WBC Morphology NOT REPORTED Normal [facility] Comment on above: Performed By: #### C DP #### [facility] [address] [place] [address] Animal Treatment Investigator: Samuel Vazquez MD DRUG SCREEN MULTI URINEon Amphetamine Screen, Ur Negative NEGATIVE [facility] [place] Barbiturate Screen, Ur Negative NEGATIVE [facility] [place] Benzodiazepine Screen, Urine Negative NEGATIVE [facility] [place] Buprenorphine Urine Negative NEGATIVE [facility] [place] Cannabinoid Scrn, Ur Negative NEGATIVE [facility] [place] Cocaine Metabolite, Urine Negative NEGATIVE [facility] [place] MDMA, Urine NOT REPORTED NEGATIVE [facility] [place] Methadone Screen, Urine Negative NEGATIVE [facility] [place] Methamphetamine, Urine Negative NEGATIVE [facility] [place] Opiates, Urine Negative NEGATIVE [facility] [place] Oxycodone Screen, Ur Negative NEGATIVE [facility] [place] Phencyclidine, Urine Negative NEGATIVE [facility] [place] Propoxyphene, Urine Negative NEGATIVE [facility] [place] Test Information NOT REPORTED [facility] [place] Tricyclic Antidepressants, Urine Negative NEGATIVE [facility] [place] Comment on above: Drug screen results are to be used for medical purposes only. All positive results are unconfirmed. Testing for employment or legal uses should be sent to a reference laboratory for confirmation. Drug Scr, Abuse, Uron 2019 Amphetamine(s),Ur Negative Normal NEG [facility] Comment on above: Performed By: #### D AU #### [facility] [address] [place] [address] Animal Treatment Investigator: Samuel Vazquez MD Barbiturate(s),Ur Negative Normal NEG [facility] Comment on above: Performed By: #### D AU #### [facility] [address] [place] [address] Animal Treatment Investigator: Samuel Vazquez MD Base excess Calc (Bld) [Moles/Vol] Negative Normal NEG [facility] Comment on above: Performed By: #### D AU #### [facility] [address] [place] [address] Animal Treatment Investigator: Samuel Vazquez MD Benzodiazepine(s) Negative Normal NEG [facility] Comment on above: Performed By: #### D AU #### [facility] [address] [place] [address] Animal Treatment Investigator: Samuel Vazquez MD Buprenorphrine, Ur Negative Normal [facility] Comment on above: Performed By: #### D AU #### [facility] [address] [place] [address] Animal Treatment Investigator: Samuel Vazquez MD Cannabinoid(s),Ur Negative Normal [facility] Comment on above: Performed By: #### D AU #### [facility] [address] [place] [id number] Animal Treatment Investigator: Samuel Vazquez MD Methadone Ql (U) Negative Normal [facility] Comment on above: Performed By: #### D AU #### [address] [place] [id number] Animal Treatment Investigator: Samuel Vazquez MD Methamphetamine, Ur Negative Normal [facility] Comment on above: Performed By: #### D AU #### [facility] [address] [place] [address] Animal Treatment Investigator: Samuel Vazquez MD Opiate(s), Ur Negative Normal [facility] Comment on above: Performed By: #### D AU #### [facility] [address] [place] [address] Animal Treatment Investigator: Samuel Vazquez MD Oxycodone, Urine Negative Normal NEG [facility] Comment on above: Performed By: #### D AU #### [facility] [address] [place], [place] [id number] Animal Treatment Investigator: Samuel Vazquez MD Phencyclidine, Ur Negative Normal NEG [facility] Comment on above: Performed By: #### D AU #### [facility] [address] [place] [address] Animal Treatment Investigator: Samuel Vazquez MD Propoxyphene,Urine Negative Normal NEG [facility] Comment on above: Performed By: #### D AU #### [facility] [address] [place] [address] Animal Treatment Investigator: Samuel Vazquez MD Tricyclic antidepressants Screen Ql (U) Negative Normal NEG [facility] Comment on above: Result Comment: Drug screen results are to be used for medical purposes only. All positive results are unconfirmed. Testing for employment or legal uses should be sent to a reference laboratory for confirmation. Performed By: #### D AU #### [facility] [address] [place], [facility] Animal Treatment Investigator: Samuel Vazquez MD Interpretive Info NOT REPORTED Normal [facility] Comment on above: Performed By: #### D AU #### [address] [place] [address] Animal Treatment Investigator: Samuel Vazquez MD MDMA, Urine NOT REPORTED Normal [facility] Comment on above: Performed By: #### D AU #### [facility] [address] [place] [address] Animal Treatment Investigator: Samuel Vazquez MD GBS, External Resulton 12-21 GBS, External Result Negative [place], [place] Verified with eli moctezuma rn [place] ABO, External Resulton 06-21 ABO, External Result O [place], [place] C. Trachomatis, External Res ulton 06-22-2019 C. Trachomatis, External Result Negative [place] HIV, External Resulton 06-21 HIV, External Result Negative [place] Hepatitis B, External Result on 06-22-2019 Hep B, External Result Negative [facility], [place] N. Gonorrhoeae, External Res ulton 06-22-2019 N. Gonorrhoeae, External Result Negative [facility] [place], [place] Otheron 06-22-2019 Verified with eli moctezuma rn [facility], [place] RPR, External Labon 06-22-19 20 RPR, External Result nonreactive [facility] [place], [place] Rh Factor, External Resulton 06-22-2019 Rh Factor, External Result Positive [facility], [place] Rubella Titer, External Resu lton 06-22-2019 Rubella Titer, External Result immune [facility] Vital Signs Date Time Vital Sign Value Performing Clinician Facility 04-25-2024 15:18-0400 Body mass index (BMI) [Ratio] 30.46 kg/m2 Pino Higgins MD Work Phone: [facility] 04-25-2024 15:18-0400 Body weight 66.68 kg Pino Higgins MD Work Phone: [facility] 04-25-2024 15:18-0400 Diastolic blood pressure 70 mm[Hg] Pino Higgins MD Work Phone: [facility] 04-25-2024 15:18-0400 Systolic blood pressure 120 mm[Hg] Pino Higgins MD Work Phone: [facility] 04-18-2024 13:30-0500 Body mass index (BMI) [Ratio] 31.08 kg/m2 Bladimir Oneal CN Work Phone: [facility] 04-18-2024 13:30-0500 Body weight 68.04 kg Bladimir Shayyo CNM Work Phone: [facility] 04-18-2024 13:30-0500 Diastolic blood pressure 80 mm[Hg] Bladimir Shayyo CNM Work Phone: [facility] 04-18-2024 13:30-0500 Systolic blood pressure 120 mm[Hg] Bladimir Shayyo CNM Work Phone: [facility] 04-06-2024 16:37-0500 Body mass index (BMI) [Ratio] 30.05 kg/m2 Bladimir Floro CNM Work Phone: [facility] 04-06-2024 16:37-0500 Body weight 65.77 kg Bladimir Floro CNM Work Phone: [facility] 04-06-2024 16:37-0500 Diastolic blood pressure 60 mm[Hg] Bladimir Floro CNM Work Phone: [facility] 04-06-2024 16:37-0500 Systolic blood pressure 120 mm[Hg] Bladimir Floro CNM Work Phone: [facility] 03-30-2024 08:43-0500 Body mass index (BMI) [Ratio] 29.63 kg/m2 Bladimir Floro CNM Work Phone: [facility] 03-30-2024 08:43-0500 Body weight 64.86 kg Bladimir Floro CNM Work Phone: [facility] 03-30-2024 08:43-0500 Diastolic blood pressure 60 mm[Hg] Bladimir Floro CNM Work Phone: [facility] 03-30-2024 08:43-0500 Systolic blood pressure 100 mm[Hg] Bladimir Floro CNM Work Phone: [facility] 03-24-2024 09:36-0500 Body mass index (BMI) [Ratio] 29.22 kg/m2 Bladimir Floro CNM Work Phone: [facility] 03-24-2024 09:36-0500 Body weight 63.96 kg Bladimir Floro CNM Work Phone: [facility] 03-24-2024 09:36-0500 Diastolic blood pressure 70 mm[Hg] Bladimir Floro CNM Work Phone: [facility] 03-24-2024 09:36-0500 Systolic blood pressure 114 mm[Hg] Bladimir Floro CNM Work Phone: [facility] 03-09-2024 09:32-0500 Body mass index (BMI) [Ratio] 29.01 kg/m2 Bladimir Floro CNM Work Phone: [facility] 03-09-2024 09:32-0500 Body weight 63.5 kg Bladimir Floro CNM Work Phone: [facility] 03-09-2024 09:32-0500 Diastolic blood pressure 60 mm[Hg] Bladimir Floro CNM Work Phone: [facility] 03-09-2024 09:32-0500 Systolic blood pressure 110 mm[Hg] Bladimir Floro CNM Work Phone: [facility] 02-25-2024 11:34-0500 Body mass index (BMI) [Ratio] 28.18 kg/m2 Bladimir Floro CNM Work Phone: [facility] 02-25-2024 11:34-0500 Body weight 61.69 kg Bladimir Floro CNM Work Phone: [facility] 02-25-2024 11:34-0500 Diastolic blood pressure 60 mm[Hg] Bladimir Floro CNM Work Phone: [facility] 02-25-2024 11:34-0500 Systolic blood pressure 110 mm[Hg] Bladimir Floro CNM Work Phone: [facility] 02-04-2024 09:03-0500 Body mass index (BMI) [Ratio] 26.52 kg/m2 Bladimir Floro CNM Work Phone: [facility] 02-04-2024 09:03-0500 Body weight 58.06 kg Bladimir Floro CNM Work Phone: [facility] 02-04-2024 09:03-0500 Diastolic blood pressure 78 mm[Hg] Bladimir Floro CNM Work Phone: [facility] 02-04-2024 09:03-0500 Systolic blood pressure 120 mm[Hg] Bladimir Floro CNM Work Phone: [facility] 01-07-2024 09:53-0500 Body mass index (BMI) [Ratio] 25.28 kg/m2 Bladimir Floro CNM Work Phone: [facility] 01-07-2024 09:53-0500 Body weight 55.34 kg Bladimir Floro CNM Work Phone: [facility] 01-07-2024 09:53-0500 Diastolic blood pressure 60 mm[Hg] Bladimir Floro CNM Work Phone: [facility] 01-07-2024 09:53-0500 Systolic blood pressure 100 mm[Hg] Bladimir Floro CNM Work Phone: [facility] 12-09-2023 10:40-0400 Body mass index (BMI) [Ratio] 24.66 kg/m2 Bladimir Floro CNM Work Phone: [facility] 12-09-2023 10:40-0400 Body weight 53.98 kg Bladimir Floro CNM Work Phone: [facility] 12-09-2023 10:40-0400 Diastolic blood pressure 60 mm[Hg] Bladimir Floro CNM Work Phone: [facility] 12-09-2023 10:40-0400 Systolic blood pressure 100 mm[Hg] Bladimir Floro CNM Work Phone: [facility] 11-11-2023 10:37-0400 Body mass index (BMI) [Ratio] 24.45 kg/m2 Bladimir Floro CNM Work Phone: [facility] 11-11-2023 10:37-0400 Body weight 53.52 kg Bladimir Floro CNM Work Phone: [facility] 11-11-2023 10:37-0400 Diastolic blood pressure 50 mm[Hg] Bladimir Floro CNM Work Phone: [facility] 11-11-2023 10:37-0400 Systolic blood pressure 90 mm[Hg] Bladimir Floro CNM Work Phone: [facility] 10-14-2023 10:09-0400 Body mass index (BMI) [Ratio] 23 kg/m2 Bladimir Oneal CN Work Phone: [facility] 10-14-2023 10:09-0400 Body weight 50.35 kg Bladimir Oneal CNM Work Phone: [facility] 10-14-2023 10:09-0400 Diastolic blood pressure 70 mm[Hg] Bladimir Oneal CN Work Phone: [facility] 10-14-2023 10:09-0400 Systolic blood pressure 110 mm[Hg] Bladimir Oneal CNM Work Phone: [facility] 09-17-2023 10:04-0400 Body mass index (BMI) [Ratio] 23.21 kg/m2 Bladimir Oneal CN Work Phone: [facility] 09-17-2023 10:04-0400 Body weight 50.8 kg Bladimir CHENEY Work Phone: [facility] 01-19-2020 08:10-0500 Body Temperature 97.81 [degF] [facility] 01-19-2020 08:10-0500 BP Diastolic 72 mm[Hg] [facility] , [place] 01-19-2020 08:10-0500 BP Systolic 122 mm[Hg] [facility] , [place] 01-19-2020 08:10-0500 Pulse (Heart Rate) 72 /min [facility], [place] 01-19-2020 08:10-0500 Respiratory Rate 16 /min [facility], [place] 01-17-2020 14:39-0500 Pulse Oximetry 99 % [facility] , [place] 01-17-2020 07:54-0500 BMI (Body Mass Index) 30.9 kg/m2 [facility] 01-17-2020 07:54-0500 Body weight 64.77 kg [facility] , [place] 01-17-2020 07:54-0500 Height 144.8 cm Bladimir Oneal [place], [place] Encounters Encounter Date Encounter Type Care Provider Facility Start: 05-04-2024 ambulatory BLADIMIR Norbert LUCASO Not [facility] Start: 05-02-2024 ambulatory BLADIMIR L FLORO Not [facility] Start: 04-25-2024 End: 04-25-2024 ambulatory PINO HIGGINS Not Available Start: 04-25-2024 End: 04-25-2024 Office outpatient visit 25 minutes Pino Higgins MD Work Phone: [facility] Comment on above: Supervision of vesna wade intrauterine in multigravida, third trimester (Primary Dx); 39 weeks gestation of Start: 04-25-2024 End: 04-25-2024 Bamboo flowsheet Pino Higgins MD Work Phone: [facility] Start: 04-25-2024 End: 04-25-2024 Bamboo flowsrenny Higgins MD Work Phone: [facility] Start: 04-18-2024 End: 04-18-2024 Bamboo flowsheet Bladimir Lucaso CNM Work Phone: [facility] Start: 04-18-2024 End: 04-18-2024 Bamboo flowsheet Bladimir Lucaso CNM Work Phone: [facility] Start: 04-18-2024 End: 04-18-2024 Subsequent care visit Bladimir Lucaso CNM Work Phone: [facility] Comment on above: Encounter for superv ision of other normal , third trimester (Primary Dx); Large for dates; Marijuana use Start: 04-18-2024 End: 04-18-2024 ambulatory BLADIMIR L FLORO Not Available Start: 04-06-2024 End: 04-06-2024 ambulatory BLADIMIR L FLORO Not Available Start: 04-06-2024 End: 04-06-2024 Subsequent care visit Bladimir Norbert Lucaso CNM Work Phone: [facility] Comment [...] Start: 03-09-2024 End: 03-09-2024 Bamboo flowsheet Bladimir Norbert Lucaso CNM Work Phone: [facility] Start: 03-09-2024 End: 03-09-2024 Bamboo flowsheet Bladimir L Floro CNM Work Phone: [facility] Start: 03-09-2024 End: 03-09-2024 ambulatory BLADIMIR Norbert LUCASO Not Available Start: 03-09-2024 End: 03-09-2024 Subsequent care visit Bladimir Norbert Lucaso CNM Work Phone: [facility] Comment on above: Encounter for superv ision of other normal , third trimester (Primary Dx); Marijuana use Start: 02-25-2024 End: 02-25-2024 Bamboo flowsheet Bladimir L Floro CNM Work Phone: [facility] Start: 02-25-2024 End: 02-25-2024 Bamboo flowsheet Bladimir Norbert Lucaso CNM Work Phone: [facility] Start: 02-25-2024 End: 02-25-2024 Subsequent care visit Bladimir Norbert Lucaso CNM Work Phone: [facility] Comment on above: Encounter for superv ision of other normal , third trimester (Primary Dx) Start: 02-25-2024 End: 02-25-2024 ambulatory BLADIMIR Norbert LUCASO Not Available Start: 02-04-2024 End: 02-04-2024 Bamboo flowsheet Bladimir L Floro CNM Work Phone: [facility] Start: 02-04-2024 End: 02-04-2024 Bamboo flowsheet Bladimir L Floro CNM Work Phone: [facility] Start: 02-04-2024 End: 02-04-2024 Office outpatient visit 15 minutes Bladimir L Shayyo CNM Work Phone: [facility] Comment [...] 11-11-2023 End: 11-11-2023 Subsequent care visit Bladimir Oneal CNM Work Phone: [facility] Comment on above: Encounter for superv ision of other normal , second trimester (Primary Dx); related condition in second trimester Start: 11-11-2023 End: 11-11-2023 ambulatory BLADIMIR LUCASO Not Available Start: 10-14-2023 End: 10-14-2023 Bamboo flowsheet Bladimir Oneal CNM Work Phone: [facility] Start: 10-14-2023 End: 10-14-2023 Bamboo flowsheet Bladimir Oneal CNM Work Phone: [facility] Start: 10-14-2023 End: 10-14-2023 Subsequent care visit Bladimir Oneal CNM Work Phone: [facility] Comment on above: Encounter for superv ision of other normal , first trimester (Primary Dx); examination or test, positive result; Marijuana use Start: 10-14-2023 End: 10-14-2023 ambulatory BLADIMIR LUCASO Not Available Start: 09-17-2023 End: 09-17-2023 ambulatory BLADIMIR LUCASO Not Available Start: 09-17-2023 End: 09-17-2023 Initial care visit Bladimir Oneal CNM Work Phone: [facility] Comment on above: examinatio n or test, positive result (Primary Dx) Start: 02-25-2021 End: 02-26-[address] DOCTOR MCKEON Facility: Start: 01-17-2020 End: 01-19-2020 Evaluation and management of inpatient BLADIMIR [facility] Start: 01-17-2020 End: 01-19-2020 Evaluation and management of inpatient Bladimir [facility] Work Phone: [facility] Labor and Delivery Procedures Date Procedure Procedure Detail Performing Clinician Start: 04-25-2024 Urnls dip stick/tabl et rgnt non-auto w/o micrscp Pino Higgins MD Work Phone: Start: 01-19-2020 DISCHARGE PATIENT MACKENZIE ONEAL Start: 01-17-2020 REASON FOR NO CHEMIC AL VTE PROPHYLAXIS BLADIMIR SHAYYO Start: 01-17-2020 SALINE LOCK IV BLADIMIR SHAYYO Start: 01-17-2020 STRAIGHT CATH BLADIMIR Spencer LORO Start: 01-17-2020 AMBULATE PATIENT TRINIDAD ONEAL Start: 01-17-2020 ASSESS BLADIMIR [place] ABDELRAHMAN Start: 01-17-2020 DIET GENERAL BLADIMIR FL ABDELRAHMAN Start: 01-17-2020 FULL CODE BLADIMIR [place] ABDELRAHMAN Start: 01-17-2020 ICE TO AFFECTED AREA [facility] LERALO LUCASO Start: 01-17-2020 NOTIFY PHYSICIAN (SPECIFY) BLADIMIR LUCASO Start: 01-17-2020 VITAL SIGNS BLADIMIR [place] ABDELRAHMAN Start: 01-17-2020 TRANSFER PATIENT TRINIDAD ONEAL Start: 01-17-2020 PATIENT STATUS (DIRECT) BLADIMIR LUCASO Start: 01-17-2020 REASON FOR NO CHEMIC AL VTE PROPHYLAXIS BLADIMIR SHAYYO Start: 01-17-2020 Blood count complete auto&auto difrntl wbc BLADIMIR SHAYYO Start: 01-17-2020 Drug screen class list a BLADIMIR SHAYYO Start: 01-17-2020 Blood count complete auto&auto difrntl wbc Bladimir Shayyo Work Phone: Start: 01-17-2020 Drug screen class list a Bladimir Lucaso Work Phone: Start: 12-22-2019 GBS, EXTERNAL RESULT Hi storical Provider Start: 12-22-2019 GBS, EXTERNAL RESULT [facility] LERALO FLORO Start: 06-22-2019 ABO, EXTERNAL RESULT Hi storical Provider Start: 06-22-2019 ABO, EXTERNAL RESULT VA LERIE FLORO Start: 06-22-2019 C. TRACHOMATIS, EXTE RNAL RESULT Historical Provider Start: 06-22-2019 C. TRACHOMATIS, EXTE RNAL RESULT BLADIMIR SHAYYO Start: 06-22-2019 HEPATITIS B, EXTERNA L RESULT Historical Provider Start: 06-22-2019 HEPATITIS B, EXTERNA L RESULT BLADIMIR SHAYYO Start: 06-22-2019 HIV, EXTERNAL RESULT Hi storical Provider Start: 06-22-2019 HIV, EXTERNAL RESULT VA LERIE FLORO Start: 06-22-2019 N. GONORRHOEAE, EXTE RNAL RESULT Historical Provider Start: 06-22-2019 N. GONORRHOEAE, EXTE RNAL RESULT BLADIMIR ONEAL Start: 06-22-2019 RH FACTOR, EXTERNAL RESULT Historical Provider Start: 06-22-2019 RH FACTOR, EXTERNAL RESULT BLADIMIR ONEAL Start: 06-22-2019 RPR, EXTERNAL RESULT Hi storical Provider Start: 06-22-2019 RPR, EXTERNAL RESULT VA JARED ONEAL Start: 06-22-2019 RUBELLA TITER, EXTER NAL RESULT Historical Provider Start: 06-22-2019 RUBELLA TITER, EXTER NAL RESULT BLADIMIR ONEAL Plan of Treatment Date Care Activity Detail Author Start: 04-18-2024 End: 04-18-2024 Professional / ancillary services management 04/18/2024 2:30 PM EST Ancillary Procedure [facility] [address] [phone] Large for dates [facility] Comment [...] AM EST Routine [facility] [address] [place] [address] Bladimir Oneal CNM [address] [place] [address] [facility] Start: 04-06-2024 End: 04-06-2024 Patient encounter procedure 04/06/2024 8:30 AM EST Routine [facility] [address] [place] [address] Bladimir Oneal, CNM [address] [place] [address] [facility] Start: 03-30-2024 End: 03-30-2025 STREPTOCCOUS, GROUP B CULTURE STREPTOCCOUS, GROUP B CULTURE Lab Routine screening for streptococcus B Expected: 03/30/2024 (Approximate), Expires: 03/30/2025 [facility] Work Phone: Comment on above: Expected: 03/30/2024 (Approximate), Expires: 03/30/2025 Start: 03-30-2024 End: 03-30-2024 Patient encounter procedure 03/30/2024 8:30 AM EST Routine [facility] [address] [facility] [place] [id number] Bladimir Oneal, CNM [address] [place] [address] [facility] Start: 03-24-2024 End: 03-24-2024 Patient encounter procedure 03/24/2024 9:30 AM EST Routine [facility] [address] [facility] [place] [id number] Bladimir Oneal, CNM [address] [place] [address] [facility] Start: 03-09-2024 End: 03-09-2024 Patient encounter procedure 03/09/2024 9:30 AM EST Routine [facility] [address] [facility] [place] [id number] Bladimir Oneal, CNM [address] [place] [address] [facility] Start: 02-25-2024 End: 02-25-2024 Patient encounter procedure 02/25/2024 11:30 AM EST Routine [facility] [address] [place] [phone] Bladimir Oneal, CN [address] [place] [address] Arrived [facility] Comment on above: Arrived Start: 02-04-2024 End: 02-03-2025 CBC panel - Blood by Automated count CBC Lab Routine Screening for iron deficiency anemia Expected: 02/04/2024 (Approximate), Expires: 02/03/2025 [facility] Comment on above: Expected: 02/04/2024 (Approximate), [...] AM EST Routine [facility] [address] [place] [address] Bladimir Oneal, SHRAVAN [address] [place] [address] [facility] Start: 12-09-2023 End: 12-09-2023 Patient encounter procedure [facility] Comment on above: Arrived Start: 12-09-2023 End: 12-09-2023 Professional / ancillary services management 12/09/2023 9:45 AM EDT Ancillary Procedure [facility] [address] [phone] [facility] Start: 11-11-2023 End: 11-10-2024 US for US OB 14+ weeks anatomy scan Imaging Routine related condition in second trimester Expected: 11/11/2023, Expires: 11/10/2024 [facility] Work Phone: Comment on above: Expected: 11/11/2023 , Expires: 11/10/2024 Start: 11-11-2023 End: 11-11-2023 Patient encounter procedure [facility] Comment on above: Arrived Start: 10-18-2023 Influenza vaccination Influenza Vacc ine (#1) [facility] Start: 10-14-2023 End: 10-14-2023 Patient encounter procedure [facility] Comment on above: examinatio n or test, positive result Start: 09-17-2023 End: 09-16-2024 Bacteria identified in Urine by Culture Urine culture Microbiology Routine examination or test, positive result Expected: 09/17/2023 (Approximate), Expires: 09/16/2024 [facility] Comment on above: Expected: 09/17/2023 (Approximate), Expires: 09/16/2024 Start: 09-17-2023 End: 09-16-2024 DRUG TOX MONITORIGN 6 W/ CONF,URINE DRUG TOX MONITORIGN 6 W/ CONF,URINE Lab Routine examination or test, positive result Expected: 09/17/2023 (Approximate), Expires: 09/16/2024 [facility] Comment on above: Expected: 09/17/2023 (Approximate), Expires: 09/16/2024 Start: 09-17-2023 End: 09-16-2024 Neisseria gonorrhoeae DNA [Presence] in Cervical mucus by JOHNATHAN with probe detection C. trachomatis / N. gonorrhoeae, DNA probe Lab Routine examination or test, positive result Expected: 09/17/2023 (Approximate), Expires: 09/16/2024 [facility] Comment on above: Expected: 09/17/2023 (Approximate), Expires: 09/16/2024 Start: 09-17-2023 End: 09-16-2024 TSH W/REFLEX TO FT4 TSH W/REFLEX TO FT4 Lab Routine examination or test, positive result Expected: 09/17/2023 (Approximate), Expires: 09/16/2024 [facility] Comment on above: Expected: 09/17/2023 (Approximate), Expires: 09/16/2024 Start: 09-17-2023 End: 09-16-2024 URINALYSIS MICROSCOPIC URINALYSIS MICROSCOPIC Lab Routine examination or test, positive result Expected: 09/17/2023 (Approximate), Expires: 09/16/2024 [facility] Comment on above: Expected: 09/17/2023 (Approximate), Expires: 09/16/2024 Start: 10-18-2019 Influenza vaccination Flu vaccine (# 1) [place], [place] Start: 02-17-2019 DTaP/Tdap/Td vaccine (1 - Tdap) DTaP/Tdap/Td vaccine (1 - Tdap) [place], [place] Start: 2016 Screening for Chlamy javi trachomatis Chlamydia screen [place], [place] Start: 02-17-2015 HIV screening HIV screen [place], [place] Start: 02-17-2011 HPV vaccine (1 - 2-d ose series) HPV vaccine (1 - 2-dose series) [place], [place] Start: 02-17-2001 Varicella vaccine (1 of 2 - 2-dose childhood series) Varicella vaccine (1 of 2 - 2-dose childhood series) [place], [place] ABO/Rh ABO/Rh Lab Routi ne examination or test, positive result Ordered: 09/17/2023 [facility] Comment on above: Ordered: 09/17/2023 Antibody screen Antibody screen Lab Routine examination or test, positive result Ordered: 09/17/2023 [facility] Comment on above: Ordered: 09/17/2023 CBC panel - Blood by Automated count CBC Lab Routine examination or test, positive result Ordered: 09/17/2023 [facility] Comment on above: Ordered: 09/17/2023 Hemoglobin A1c/Hemoglobin.total in Blood Hemoglobin A1c Lab Routine examination or test, positive result Ordered: 09/17/2023 [facility] Comment on above: Ordered: 09/17/2023 Hepatitis B virus surface Ag [Presence] in Serum or Plasma by Immunoassay Hepatitis B surface antigen Lab Routine examination or test, positive result Ordered: 09/17/2023 [facility] Work Phone: Comment on above: Ordered: 09/17/2023 Hepatitis C virus Ab [Presence] in Serum or Plasma by Immunoassay Hepatitis C antibody Lab Routine examination or test, positive result Ordered: 09/17/2023 [facility] Comment on above: Ordered: 09/17/2023 HIV-1/HIV-2 antigen/antibody combination immunoassay HIV-1 and HIV-2 antibodies Lab Routine examination or test, positive result Ordered: 09/17/2023 [facility] Comment on above: Ordered: 09/17/2023 Reagin Ab [Presence] in Serum by RPR RPR Lab Routine examination or test, positive result Ordered: 09/17/2023 [facility] Comment on above: Ordered: 09/17/2023 Rubella antibody, IgG Rubella an tibody, IgG Lab Routine examination or test, positive result Ordered: 09/17/2023 [facility] Comment on above: Ordered: 09/17/2023 Immunizations Immunization Date Immunization Notes Care Provider Nafisa valles 01-17-2020 diphtheria, tetanus toxoids and acellular pertussis vaccine, unspecified formulation [facility] , [place] 01-17-2020 measles, mumps and r ubella virus vaccine [facility], [place] Payers Date Payer Category Payer Medicaid (Managed Care) [employer] [id number] 2022 [facility] Mem er [id number] 2022 Unknown BCBS BCBS xxxxxx [id number] 2022-Present [phone] [address] [place] [id number] 2022 Unknown [id number] 2000 Unknown [id number] 2.16840.1.517636.3.579.2. 173 2000 Unknown [id number] 2.16840.1.270777.3.579.2. 593 2000 Unknown [id number] 2.16.840.1.886251.3.579.2. 9 2000 Unknown [id number] 2.16.840.1.328714.3.579.2. 9 2000 Unknown [id number] 2.16.840.1.252709.3.579.2. 1259 2000 Unknown [id number] 2.16840.1.646404.3.579.2. 1259 2000 Unknown [id number] 2.16.840.1.777227.3.579.2. 1259 2000 Unknown [id number] 2.16.840.1.212222.3.579.2. 1259 2000 Unknown [id number] 2.16.840.1.700684.3.579.2. 1259 2000 Unknown [id number] 2.16.840.1.408914.3.579.2. 9 2000 Unknown [id number] 2.16.840.1.223859.3.579.2. 9 2000 Unknown [id number] 2.16.840.1.005486.3.579.2. 9 2000 Unknown [id number] 2.16.840.1.995695.3.579.2. 9 2000 Unknown [id number] 2.16.840.1.433282.3.579.2. 9 2000 Unknown [id number] 2.16.840.1.034465.3.579.2. 9 2000 Unknown [id number] 2.16.840.1.178309.3.579.2. 9 2000 Unknown [id number] 2.16.840.1.883898.3.579.2. 9 2000 Unknown [id number] 2.16.840.1.407788.3.579.2. 9 1959 Unknown [id number]. [id number] Social History Date Type Detail Facility Start: 01-17-2020 Tobacco smoking stat [facility] Former smoker [facility] Start: 01-17-2020 End: 09-17-2023 Cigarettes smoked current (pack per day) - Reported [place], [place] Start: 01-17-2020 End: 03-03-2023 [facility] Start: 01-17-2020 End: 09-17-2023 [facility] Start: [facility] Sex Assigned At Not on file [place], [place] Exposure to SARS-CoV -2 (event) Not sure [place], [place] Start: 03-03-2023 Tobacco smoking stat [facility] Tobacco smoking consumption unknown [facility] Start: 03-03-2023 End: 09-17-2023 Tobacco use panel [facility] Start: 03-03-2023 Tobacco Comment *Current smoke r, frequency unknownSmokes 5 or less cigarettes a day [facility] Start: 08-04-2023 [facility] Clinical Notes 09-17-2023 to 04-25-2024 Pino Higgins MD - 04/25/2024 3:15 PM EDTBladimir Oneal CNM - 04/18/2024 1:30 PM Sonya Barclay MA - 04/06/2024 4:30 PM Allison Oneal CNM - 03/30/2024 8:30 AM EST Note Date & Type Note Facility 04-25-2024 History of Presen t illness Narrative Labor cautions documented in this encounter [facility] 04-18-2024 History of Presen t illness Narrative [...] a routine visit. documented in this encounter [facility] 04-06-2024 History of Presen t illness Narrative [...] a routine visit. documented in this encounter [facility] 03-30-2024 History of Presen t illness Narrative [...] a routine visit. documented in this encounter [facility] 03-24-2024 History of Presen t illness Narrative [...] a routine visit. documented in this encounter [facility] 03-09-2024 History of Presen t illness Narrative [...] a routine visit. documented in this encounter [facility] 02-25-2024 History of Presen t illness Narrative [...] a routine visit. documented in this encounter [facility] 02-04-2024 History of Presen t illness Narrative [...] Labs: reviewed Imaging Will send order to [facility] for 2 weeks for 30 week [...] a routine visit. documented in this encounter [facility] 01-07-2024 History of Presen t illness Narrative [...] a routine visit. documented in this encounter [facility] 12-09-2023 History of Presen t illness Narrative [...] a routine visit. documented in this encounter [facility] 11-11-2023 History of Presen t illness Narrative [...] a routine visit. documented in this encounter [facility] 10-14-2023 History of Presen t illness Narrative [...] a routine visit. documented in this encounter [facility] 09-17-2023 History of Presen t illness Narrative [...] also given office phone number and [facility] number to call in case of an emergency or after hours needs. PVU and all questions answered. We did discuss place of delivery. Patient should plan to go to [facility] for all services unless an emergency and they need to go to the closest ER. We can make other arrangements possibly if patient would like to deliver at another facility but I did explain I am now at [facility] 100% of the time and would like to do all deliveries there. documented in this encounter [facility] Evaluation note Diagnosis Encounter for supervision of other normal , second trimester- Primary Marijuana use documented in this encounter [facility]* Diagnosis examination or test, positive result- Primary documented in this encounter [facility]* Diagnosis Encounter for supervision of other normal , first trimester- Primary examination or test, positive result Marijuana use documented in this encounter [facility]* Diagnosis Encounter for supervision of other normal , second trimester- Primary related condition in second trimester documented in this encounter [facility]* Diagnosis Encounter for supervision of other normal , second trimester- Primary Screening for diabetes mellitus Screening for iron deficiency anemia documented in this encounter [facility]* Diagnosis Encounter for supervision of other normal , third trimester- Primary documented in this encounter [facility]* Diagnosis Encounter for supervision of other normal , third trimester- Primary Marijuana use documented in this encounter [facility]* Diagnosis Encounter for supervision of other normal , third trimester- Primary screening for streptococcus B screening for Streptococcus B documented in this encounter [facility]* Diagnosis Encounter for supervision of other normal , third trimester- Primary Marijuana use Large for dates documented in this encounter [facility]* Diagnosis Encounter for supervision of other normal , third trimester- Primary Large for dates Marijuana use Large for dates documented in this encounter [facility]* Diagnosis Supervision of normal intrauterine in multigravida, third trimester- Primary 39 weeks gestation of documented in this encounter [facility] Hospital Course * Vilma Orantes APRN - CNM - 01/19/2020 7:00 AM EST Obstetrical Discharge Form Gestational Age:40w2d Antepartum complications: none Date of Delivery: 01/17/20 Type of Delivery: Delivered By: Moiz Oneal APRN, CNM Assisted By:N/A} Baby: female Anesthesia: epidural [...] # 2.10 1.20 - 5.20 k/uL [place] # 0.69 0.10 - 1.40 k/uL [facility] [...] Discharge Medication: Attila Tesfaye Home Medication Instructions VLADISLAV:[id number] Printed on:01/19/20 0700 Medication Information [id number] PO Take 1 tablet by mouth daily Admit date: 01/17/2020 7:31 AM Discharge Date: 01/19/2020 Discharged to: Home in stable condition Plan: Follow up with Hannah Oneal CNM in 2 weeks documented in this encounter Discharge Instructions * Instructions* Natasha Graf RN - 01/19/2020 Follow-up with your OB doctor as specified. [facility] OB Department phone: Dr. Rey Vaz [facility] Dr. Bharat Whitman CN [address] [address] [place] [address] Bharat WILLIAMSON [facility] [address] [facility] [address] [phone] Hannah Oneal, MSN, HELP DESK INTERN, CNM [facility] [address] [facility] [address] [address] Samson [address] [facility] [address] Vilma Orantes CN [address] [place] [address] [place] [address] Aye Melendez CNM [address] [place] [address] [place] [address] [phone] DIET Eat a well balanced diet focusing on foods high in fiber and protein. Drink plenty of fluids especially water. To avoid constipation you may take a mild stool softener as recommended by your doctor or drier tender. ACTIVITY Gradually increase your activity. Resume exercise regimen only after advice by your doctor or drier tender. Avoid lifting anything heavier than a gallon of milk for SIX weeks. Avoid driving until your doctor or drier tender has given their approval. Rise slowly from [...] of harming yourself or your . If infant will not stop crying, contact another adult for help or place in their crib on their back and take a break. NEVER shake your . BLEEDING Vaginal bleeding will decrease in amount [...] medications as recommended by your doctor or drier tender for pain If you develop a warm, [...] vitamins as directed by your doctor or drier tender. Refer to the booklet in the folder/binder for more information. If you feel you need more assistance or have questions, please call Yojana Chase IBCLC, portrait consultant, at or the OB department to [...] cannot be sent through Care Everywhere. * (Albanian) * OB CORONAVIRUS (COVID-19): , AND BABY CARE DISCHARGE INSTRUCTIONS documented in this encounter History of Present Illness * Yojana Chase IBCLC - 01/19/2020 10:50 AM EST note: [] Feeding observed, see flowsheet. [x] Patient states is going well: no complaints. Denies questions or concerns. [] Patient has questions/concerns. [x] Verbalizes understanding, advised to follow up with portrait consultant if necessary. * Yojana Chase IBCLC [...] Preventing Engorgement - Medela Supplies given: [] [place], soap and basin for breastpump cleaning [] [...] rate: Baseline Heart Rate: 135 Accelerations: present Custodial Variability: moderate Decelerations: absent Contraction frequency: 1-2 [...] rate: Baseline Heart Rate: 140 Accelerations: present Touch Up Edger Variability: moderate Decelerations: absent Contraction frequency: 1-2 [...] Referral Specialty Diagnoses / Procedures Referred By Contac t Referred To Contact Obstetrics and Gynecology Diagnoses examination or test, positive result Procedures ID OFFICE/OUTPATIENT NEW HIGH MDM 60 MINUTES Bladimir Oneal CNM [address] [place] [address] Bladimir Oneal CNM [address] [place] [address] Referral ID Status Reason Start Date Expiration Date Visits Requested Visits Authorized [id number] Pending Review Specialty Services Required 10/08/2023 04/05/2024 1 1 Additional Source Comments Reason for Visit (unrecogniz ed section and content) Reason Comments Laboring Status Reason Specialty Diagnoses / Procedures Referre d By Contact Referred To Contact Diagnoses Term Bladimir Oneal APRN - CNM [address] [place] [address] [facility] Specialty Diagnoses / Procedures Referred By Contac t Referred To Contact Obstetrics and Gynecology Diagnoses examination or test, positive result Procedures ID OFFICE/OUTPATIENT NEW HIGH MDM 60 MINUTES Bladimir Oneal CNM [address] [place] [address] Bladimir Oneal CNM [address] [place] [address] Referral ID Status Reason Start Date Expiration Date V isits Requested Visits Authorized [id number] Closed Specialty Services Required 10/08/2023 04/05/2024 1 1 INFORMATION SOURCE (unrecogn ized section and content) DATE CREATED AUTHOR 01/19/2020 [facility] DATE CREATED AUTHOR AUTHOR'S ORGANIZ ATION 03/02/2021 [facility] DATE CREATED AUTHOR AUTHOR'S ORGANIZ ATION 05/04/2024 [facility] Specialists [facility] Care Teams (unrecognized sec tion and content) Incubator Machine Operator Relationship Specialty Start Date End Date Mounika Arroyo MD [address] [place] [address] PCP - General Family Medicine 06/24/22 Incubator Machine Operator Relationship Specialty Start Date End Date Mounika Arroyo MD [address] [place] [address] PCP - General Family Medicine 06/24/22 Incubator Machine Operator Relationship Specialty Start Date End Date Mounika Arroyo MD [address] [place] [address] PCP - General Family Medicine 06/24/22 Incubator Machine Operator Relationship Specialty Start Date End Date Mounika Arroyo MD [address] [place] [address] PCP - General Family Medicine 06/24/22 Incubator Machine Operator Relationship Specialty Start Date End Date Mounika Arroyo MD [address] [place] [address] PCP - General Family Medicine 06/24/22 Incubator Machine Operator Relationship Specialty Start Date End Date Mounika Arroyo MD [address] [place] [address] PCP - General Family Medicine 06/24/22 Incubator Machine Operator Relationship Specialty Start Date End Date Mounika Arroyo MD [address] [place] [address] PCP - General Family Medicine 06/24/22 Incubator Machine Operator Relationship Specialty Start Date End Date Mounika Arroyo MD [address] [place] [address] PCP - General Family Medicine 06/24/22 Incubator Machine Operator Relationship Specialty Start Date End Date Mounika Arroyo MD [address] [place] [address] PCP - General Family Medicine 06/24/22 Incubator Machine Operator Relationship Specialty Start Date End Date Mounika Arroyo MD [address] [place] [address] PCP - General Family Medicine 06/24/22 FOR [...] BE BASED ON THE PRIMARY CLINICAL RECORDS. [facility]. provides no warranty or guarantee of the accuracy or completeness of information in this document.
[2024-05-05] MEDS: LACTATED RINGER'S SOLUTION 1,000 ML 125 ML IV ×4 (05:43→21:00)
[2024-05-05] MEDS: OXYTOCIN/0.9 % SODIUM CHLORIDE 10 UNITS/500 ML PLAST..BAG 6 UNIT IV (06:05)
[2024-05-05 06:20] LABS: Hemoglobin 9.8 g/dL (12.0-16.0); Mean Corpuscular HGB Conc 33.8 g/dL (29.9-35.2); Mean Corpuscular Hemoglobin 27.1 pg (26.7-34.0); Mean Corpuscular Volume 80.3 fL (81.0-99.0); Mean Platelet Volume 11.3 fL (9.5-13.5); Platelet Count 243 10^3/uL (150-450); Red Blood Count 3.61 10^6/uL (4.20-5.40); White Blood Count 10.3 10^3/uL (4.0-11.0)
[2024-05-05 06:31] LABS: Amphetamine Screen Urine NEGATIVE (NEGATIVE); Barbiturates Screen Urine NEGATIVE (NEGATIVE); Benzodiazepines Screen Urine NEGATIVE (NEGATIVE); Buprenorphine Screen Urine NEGATIVE (NEGATIVE); Cannabinoid Screen Urine NEGATIVE (NEGATIVE); Cocaine Screen Urine NEGATIVE (NEGATIVE); Methadone Screen Urine NEGATIVE (NEGATIVE); Methamphetamines Screen Urine NEGATIVE (NEGATIVE); Opiate Screen Urine NEGATIVE (NEGATIVE); Oxycodone Screen Urine NEGATIVE (NEGATIVE); Phencyclidine Screen Urine NEGATIVE (NEGATIVE); Tricyclic Antidepressant Urine NEGATIVE (NEGATIVE)
[2024-05-05] MEDS: NALBUPHINE HCL 10 MG/ML AMPULE 20 MG IM (08:59)
--- NOTE | 2024-05-05 10:25 | PM.OBHP ---
OB - H&P: HPI History of Present Illness Chief complaint: INDUCTION : 2 Para: 1 Gestational age based on last menstrual period: 41.2 Indications for induction: other (POST DATES ) History of Present Dating criteria: LMP confirmed by 1st trimester US care: good care Ultrasounds: normal 1st trimester US and normal mid trimester US Medical complications OB: none Labs Blood type: O (+) positive Rubella: immune RPR/VDLR: nonreactive GBS status: negative HBsAG: negative Review of Systems ROS Status of ROS: 10 or more systems reviewed and unremarkable except as noted in history and below PFSH PFSH Social History Little interest or pleasure in doing things: not at all Feeling down, depressed, or hopeless: not at all Meds Home Medications and Allergies Home Medications ?Medication ?Instructions ?Recorded ?Confirmed ?Type No Known Home Medications 05/05/24 05/05/24 History Allergies Allergy/AdvReac Type Severity Reaction Status Date / Time No Known Drug Allergies Allergy Verified 05/05/24 05:10 Exam Constitutional Vital Signs, click to edit/add: Last Vital Signs Temp 97.7 F 05/05/24 10:23 Pulse 78 05/05/24 10:18 Resp 14 05/05/24 06:51 BP 110/57 05/05/24 10:18 O2 Del Method Room Air 05/05/24 06:51 Documenting provider has reviewed patient's vital signs: yes Common normals: no apparent distress General appearance: cooperative, comfortable, well kempt and well developed Orientation/consciousness: Yes awake, Yes oriented to person, Yes oriented to place and Yes oriented to time HENMT Common normals: normocephalic Eye Common normals: EOMs intact bilaterally General eye: normal appearance of both eyes Neck & C-Spine Common normals: full ROM General: normal visual inspection Lymph Lymphatic: no lymphadenopathy noted Chest Common normals: inspection of chest normal Respiratory Common normals: normal respiratory effort, no retractions, no use of accessory muscles and clear to auscultation bilaterally Effort & inspection: able to speak in complete sentences Auscultation: clear to auscultation bilaterally Cardio Common normals: regular rate and regular rhythm Rate: regular rate Rhythm: regular rhythm GI Common normals: Normal to inspection, nondistended, normoactive bowel sounds present, soft to palpation and non-tender Inspection: normal to inspection Auscultation: normoactive bowel sounds Palpation: soft Common normals: no CVA tenderness Back & Pelvis Common normals: no CVA tenderness Thoracic spine/upper back: normal to inspection Lumbar spine/lower back: normal to inspection Extremity Common normals: normal to inspection and full ROM Neuro Common normals: oriented x3 Sensorium/orientation: awake, alert, oriented to person, oriented to place and oriented to time Speech: speech normal Psych Common normals: mental status grossly normal, thought process normal, cooperative, affect normal, speech normal, activity/motor behavior normal, denies hallucinations, denies homicidal ideation and denies suicidal ideation Attitude: calm Activity/motor behavior: appropriate eye contact Results Labs Labs: Short CBC 05/05/24 Range/Units 05:40 WBC 10.3 (4.0-11.0) 10^3/uL Hgb 9.8 L (12.0-16.0) g/dL Hct 29.0 L (36.0-48.0) % Plt Count 243 (150-450) 10^3/uL OB - A/P Assessment and Plan (1) Post-dates : (2) Term : (3) Elective induction of labor planned:
[2024-05-05] MEDS: ROPIVACAINE HCL/PF 400 MG/200 ML PREMIX 10 MG EPIDURAL (10:48)
[2024-05-05] MEDS: ROPIVACAINE HCL 0.2% PF 40 MG/20 ML VIAL EPIDURAL (10:50)
[2024-05-05] MEDS: FAMOTIDINE/PF 20 MG/2 ML VIAL IV (18:41)
[2024-05-05] MEDS: METOCLOPRAMIDE HCL 10 MG/2 ML VIAL IVP (18:41)
[2024-05-05] MEDS: CITRIC ACID/SODIUM CITRATE 30 ML SOLUTION ORACIT SHOHL'S SOLN PO (18:41)
[2024-05-05] MEDS: LIDOCAINE VISCOUS 2% 15 ML SOLUTION 5 ML TOPICAL (18:42)
[2024-05-05] MEDS: LACTATED RINGER'S SOLUTION 1,000 ML 1000 ML IV ×2 (19:15→19:47)
--- NOTE | 2024-05-05 19:39 | P.ON_ITS ---
Brief Operative Note Date of procedure: 05/05/24 Pre-op diagnosis general: iup at 41 2/7wks, failure to dilate, failure to desc end Post-op diagnosis: same as pre-op Procedure: NAME OF PROCEDURE: [ section ] PROCEDURE: Patient was taken back to the Operating Room where she was given a spinal anesthesia with Duramorph without difficulty. She was prepped and draped in the normal sterile fashion. A Pfannenstiel skin incision was then made 2 cm above the symphysis pubis and carried down to underlying rectus fascia using a Bovie. The fascia was incised in the midline and extended laterally using Reddy scissors. Two Margret clamps were placed on the superior aspect of the fascia and dissected off the underlying rectus muscles. The same was performed on the inferior aspect as well. The muscles were then in the midline. Peritoneum was identified and entered bluntly. The peritoneum was then extended superiorly and inferiorly with good visualization of the bladder. The bladder blade was inserted. A low transverse incision was made on the patient's uterus and extended laterally digitally. The was then delivered atraumatically after the bladder blade was removed in the cephalic position. The cord was clam ped and cut. Cord blood was obtained. The infant was handed off to awaiting team. The patient's placenta was spontaneously delivered. The uterus was then exteriorized. The uterus was cleared of all clots and debris. The bladder blade was reinserted. The patient's uterine incision was closed using #0 Vicryl in a running lock fashion. Excellent hemostasis was assured. The uterus was then returned to the patient's abdomen. The patient's abdomen was copiously irrigated using warm saline. Peritoneal gutters were cleared of all clots and debris. Again excellent hemostasis was assured. The patient's peritoneum was closed using 3-0 Vicryl in a running fashion. The patient's fascia was closed using #0 Vicryl in a running fashion. The patient's skin was closed using 4-0 Vicryl subcuticularly. The patient tolerated the procedure well. Sponge, lap, and needle counts were correct x2. The patient was taken to the Recovery Room in stable condition. Anesthesia: epidural Surgeon: Griffin Hines Marketing Content Specialist: BLADIMIR PIERRE Estimated blood loss (mL): 575 Pathology: other (placenta) Condition: stable Disposition: PACU Urinary Catheter Management Urinary Catheter Management Urethral: Cath placed during this visit: yes Urethral indwelling: No Insertion date: 05/05/24 Insertion time: 11:15
--- NOTE | 2024-05-05 19:46 | P.OBPRC_ITS ---
Procedure Pre-op/Post-op diagnoses: Pre-Op/Post-Op Diagnoses Operation Date: 05/05/24 18:45 <No data on this case meets the specified criteria> Procedure: Procedures Operation Date: 05/05/24 18:45 Actual Procedure Side Surgeon p Not Applicable Griffin Hines DO Administrative Support Associate: BLADIMIR PIERRE Estimated blood loss (mL): 575 Disposition: PACU Anesthesia type: Epidural
--- NOTE | 2024-05-05 20:09 | PM.EN ---
Event Note Event Note: Sewer And Inspector note: I assisted Dr hines with primary section for arrest of decent and decelerations. I assisted Dr Hines as directed. I independently closed the SQ layer with a 4-0 vicryl without difficulty. I then independently closed the patient's incision with a 3-0 vicryl suture without difficulty and hemostasis noted at closure. Patient tolerated procedure well.
[2024-05-06] VITALS (8 sets, daily range): BP systolic 109–126; BP diastolic 54–71; PULSE 69–79; TEMP 36.4–36.8; O2SAT 95–98
[2024-05-06] MEDS: CEFAZOLIN SODIUM/DEXTROSE,ISO 1 GM/50 ML PREMIX IV (00:42)
[2024-05-06] MEDS: KETOROLAC TROMETHAMINE 30 MG/ML VIAL IVP ×3 (02:11→16:18)
[2024-05-06] MEDS: ACETAMINOPHEN 500 MG TABLET 1000 MG PO ×3 (03:55→20:35)
[2024-05-06 06:25] LABS: Hemoglobin 7.6 g/dL (12.0-16.0); Mean Corpuscular HGB Conc 33.5 g/dL (29.9-35.2); Mean Corpuscular Hemoglobin 26.9 pg (26.7-34.0); Mean Corpuscular Volume 80.2 fL (81.0-99.0); Mean Platelet Volume 11.6 fL (9.5-13.5); Platelet Count 221 10^3/uL (150-450); Red Blood Count 2.83 10^6/uL (4.20-5.40); Red Cell Distribution Width 13.2 % (11.0-15.0)
[2024-05-06 06:31] LABS: Hematocrit 22.7 % (36.0-48.0)
[2024-05-06 06:44] LABS: Lymphocytes Absolute Manual 0.92 10^3/uL (1.20-3.80); Monocytes Absolute Manual 0.69 10^3/uL (0.30-0.80); Segmented Neut Absolute Manual 21.39 10^3/uL (1.4-6.5)
--- NOTE | 2024-05-06 07:53 | PM.OBPN ---
OB - PN: Subj Subjective Patient comments: no complaints and pain well controlled [place] status: doing well Exam Constitutional Vital Signs, click to edit/add: Last Vital Signs Temp 97.8 F 05/06/24 03:52 Pulse 75 05/06/24 03:52 Resp 15 05/05/24 23:20 BP 114/57 05/06/24 03:52 Pulse Ox 95 05/06/24 03:53 O2 Del Method Room Air 05/05/24 23:05 Documenting provider has reviewed patient's vital signs: yes Common normals: no apparent distress Respiratory Common normals: normal respiratory effort and clear to auscultation bilaterally Cardio Common normals: regular rate and regular rhythm GI Common normals: Normal to inspection, nondistended, normoactive bowel sounds present Extremity Common normals: no clubbing, cyanosis or edema and no calf tenderness Results Labs Labs: Short CBC 05/06/24 Range/Units 06:12 WBC 23.0 H (4.0-11.0) 10^3/uL Hgb 7.6 L (12.0-16.0) g/dL Hct 22.7 L* (36.0-48.0) % Plt Count 221 (150-450) 10^3/uL Urinary Catheter Management Urinary Catheter Management Urethral: Cath placed during this visit: yes Urethral indwelling: No Insertion date: 05/05/24 Insertion time: 11:15 OB - PN: A/P Assessment and Plan (1) Post-dates : (2) Term : (3) Elective induction of labor planned: Plan - day: 1 Plan: routine postop care Time Spent with Patient Time: Total time spent is greater than 50% in coordination of care (as documented) at patient's floor/unit and/or counseling patient: Total time spent with greater than 50% in coordination of care (as documented) at patient's floor/unit and/or counseling patient: less than 15 minutes
[2024-05-06] MEDS: DOCUSATE SODIUM 100 MG CAPSULE PO ×2 (08:39→20:35)
[2024-05-06] MEDS: ENOXAPARIN SODIUM 40 MG/0.4 ML SYRINGE SUBQ (10:01)
[2024-05-06] MEDS: GLYCERIN/WITCH HAZEL PADS 1 PAD TOPICAL (20:35)
[2024-05-07] MEDS: KETOROLAC TROMETHAMINE 30 MG/ML VIAL IVP ×2 (00:35→08:37)
[2024-05-07] MEDS: ACETAMINOPHEN 500 MG TABLET 1000 MG PO (04:58)
[2024-05-07 08:35] VITALS: BP 123/75
[2024-05-07] MEDS: DOCUSATE SODIUM 100 MG CAPSULE PO (08:37)
[2024-05-07] MEDS: ENOXAPARIN SODIUM 40 MG/0.4 ML SYRINGE SUBQ (08:37)
--- NOTE | 2024-05-07 10:28 | PM.OBPN ---
OB - PN: Subj Subjective Patient comments: no complaints and pain well controlled [place] status: doing well Exam Constitutional Vital Signs, click to edit/add: Last Vital Signs Temp 98.2 F 05/06/24 22:10 Pulse 79 05/06/24 22:10 Resp 16 05/07/24 08:47 BP 123/75 05/07/24 08:35 Pulse Ox 98 05/06/24 22:10 O2 Del Method Room Air 05/07/24 08:47 Documenting provider has reviewed patient's vital signs: yes Common normals: no apparent distress Respiratory Common normals: normal respiratory effort and clear to auscultation bilaterally Cardio Common normals: regular rate and regular rhythm GI Common normals: Normal to inspection, nondistended, normoactive bowel sounds present Extremity Common normals: no calf tenderness Urinary Catheter Management Urinary Catheter Management Urethral: Cath placed during this visit: yes Urethral indwelling: No Insertion date: 05/05/24 Insertion time: 11:15 OB - PN: A/P Assessment and Plan (1) Post-dates : (2) Term : (3) Elective induction of labor planned: Plan - day: 2 Plan: routine postop care, discharge home and other (fu 1wk) Time Spent with Patient Time: Total time spent is greater than 50% in coordination of care (as documented) at patient's floor/unit and/or counseling patient: Total time spent with greater than 50% in coordination of care (as documented) at patient's floor/unit and/or counseling patient: less than 15 minutes
== END 2024-05-07 14:48 | disposition home or self-care (01) | DRG 788 ==
PROVIDERS: Obstetrics & Gynecology; Admitting Provider Midwife; Visit Provider Midwife
PROC: 10D00Z1 Extraction of Products of Conception, Low, Open Approach (ICD-10-PCS; CPT 59514; principal; 2024-05-05 18:45)
DX: O48.0 Post-term pregnancy (principal); O76 Abnormality in fetal heart rate and rhythm complicating labor and delivery; O62.0 Primary inadequate contractions; O32.4XX2 Maternal care for high head at term, fetus 2; Z37.0 Single live birth; Z3A.41 41 weeks gestation of pregnancy; Z23 Encounter for immunization
CPT/HCPCS: 36415; 51702; 59050; 64488; 80307; 85007; 85027; 86850; 86900; 86901; 88307; 94667; 94668; J0131; J0665; J0690; J1100; J1650; J1885; J2274; J2300; J2405; J2590; J2765; J2795; J3010; J3490